=== PATIENT | female | born 1935 | race Caucasian/White ===

== ENCOUNTER 2018-04-10 12:26 | Emergency (ER) | payer OTHER ==
[2018-04-10] MEDS ORDERED: METOCLOPRAMIDE 10 MG/2mL INJ ONE (13:17)
[2018-04-10] MEDS ORDERED: NA CHLORIDE 0.9% 1,000 ML ONE ×2 (13:17→13:47)
[2018-04-10] MEDS ORDERED: DIPHENHYDRAMINE 50 MG/ML VIAL ONE (13:17)
[2018-04-10] MEDS ORDERED: KETOROLAC 30 MG/ML INJ ONE (13:17)
[2018-04-10 13:24] LABS: Absolute Lymphocytes (CBC) 0.6 K/uL (0.7-4.9); Absolute Monocytes 0.2 K/uL (0.1-1.3); Absolute Neutrophil 4.2 K/uL (1.8-8.0); Basophils % 0.5 % (0-1.3); Eosinophils % 0.2 % (0-4.4); Lymphocytes % 12.5 % (15.3-44.8); MCH 30.5 pg (27.0-35.0); MCV 89.5 fL (80-100); MPV 8.6 fL (7.6-11.3); Monocytes % 3.6 % (3.3-12.3)
[2018-04-10] MEDS ORDERED: LEVALBUTEROL 1.25 MG/3 ML NEB ONE ×2 (13:47→14:40)
[2018-04-10] MEDS ORDERED: IPRATROPIUM BROM 0.5MG/2.5ML ONE (13:47)
[2018-04-10] MEDS ORDERED: POTASSIUM CL SA 10 MEQ TAB PO ONE (14:12)
[2018-04-10] MEDS ORDERED: METHYLPREDNISOLONE 125 MG INJ ONE (14:40)
--- NOTE | 2018-04-10 14:40 | EDPHYS ---
Physician Documentation [facility] Name: aJvid Brown Age: 82 yrs Sex: Female : 1935 Arrival Date: 04/10/2018 Time: 12:29 Bed 6 Private MD: ED Physician Cali Mcmahan HPI: 04/10 12:45 This 82 yrs old Female presents to ER via Wheelchair with complaints of jr8 Headache. 12:45 The patient complains of pain to the forehead. The patient describes the headache as jr8 throbbing. Onset: The symptoms/episode began/occurred acutely, today. Associated signs and symptoms: Pertinent positives: vomiting. Severity of symptoms: At its worst the pain was moderate. The symptoms are alleviated by nothing. the symptoms are aggravated by lights, movement, noise. The patient has experienced a previous episode, approximately 20 years ago. The patient has not recently seen a physician. Historical: - Allergies: 12:33 No Known Allergies; la1 - PMHx: 12:33 Hypertension; la1 - Immunization history:: Adult Immunizations up to date. - Social history:: Smoking status: Patient/guardian denies using tobacco. ROS: 12:45 Eyes: Negative for injury, pain, redness, and discharge, ENT: Negative for injury, jr8 pain, and discharge, Neck: Negative for injury, pain, and swelling, Cardiovascular: Negative for chest pain, palpitations, and edema, Respiratory: Negative for shortness of breath, cough, wheezing, and pleuritic chest pain, Abdomen/GI: Negative for abdominal pain, diarrhea, and constipation. Positive for n/v Back: Negative for injury and pain, MS/Extremity: Negative for injury and deformity, Skin: Negative for injury, rash, and discoloration, Neuro: Negative for weakness, numbness, tingling, and seizure. Positive for headache Exam: 12:45 Head/Face: Normocephalic, atraumatic. Eyes: Pupils equal round and reactive to light, jr8 extra-ocular motions intact. Lids and lashes normal. Conjunctiva and sclera are non-icteric and not injected. Cornea within normal limits. Periorbital areas with no swelling, redness, or edema. ENT: Nares patent. No nasal discharge, no septal abnormalities noted. Tympanic membranes are normal and external auditory canals are clear. Oropharynx with no redness, swelling, or masses, exudates, or evidence of obstruction, uvula midline. Mucous membranes moist. Neck: Trachea midline, no thyromegaly or masses palpated, and no cervical lymphadenopathy. Supple, full range of motion without nuchal rigidity, or vertebral point tenderness. No Meningismus. Cardiovascular: Regular rate and rhythm with a normal S1 and S2. No gallops, murmurs, or rubs. Normal PMI, no JVD. No pulse deficits. Respiratory: Lungs have equal breath sounds bilaterally, clear to auscultation and percussion. No rales, rhonchi or wheezes noted. No increased work of breathing, no retractions or nasal flaring. Abdomen/GI: Soft, non-tender, with normal bowel sounds. No distension or tympany. No guarding or rebound. No evidence of tenderness throughout. Back: No spinal tenderness. No costovertebral tenderness. Full range of motion. Skin: Warm, dry with normal turgor. Normal color with no rashes, no lesions, and no evidence of cellulitis. MS/ Extremity: Pulses equal, no cyanosis. Neurovascular intact. Full, normal range of motion. Neuro: Awake and alert, GCS 15, oriented to person, place, time, and situation. Cranial nerves II-XII grossly intact. Motor strength 5/5 in all extremities. Sensory grossly intact. Cerebellar exam normal. Normal gait. Vital Signs: 12:33 BP 179 / 95; Pulse 79; Resp 19; Temp 98.7; Pulse Ox 100% on R/A; Weight 51.26 kg; la1 Height 5 ft. 4 in. (162.56 cm); 13:41 BP 165 / 73; Pulse 86; Resp 17; Pulse Ox 96% on R/A; hb 14:18 BP 182 / 97; Pulse 73; Resp 15; Pulse Ox 100% on R/A; hb 15:01 BP 195 / 91; Pulse 89; Resp 17; Pulse Ox 97% on R/A; tw2 12:33 Body Mass Index 19.40 (51.26 kg, 162.56 cm) la1 MDM: 12:36 Patient medically screened. jr8 12:45 Data reviewed: vital signs, nurses notes. jr8 14:39 Data reviewed: lab test result(s). Data interpreted: Pulse oximetry: on room air is 100 jr8 %. Interpretation: normal. Counseling: I had a detailed discussion with the patient and/or guardian regarding: the historical points, exam findings, and any diagnostic results supporting the discharge/admit diagnosis, lab results, the need for outpatient follow up, a family practitioner, to return to the emergency department if symptoms worsen or persist or if there are any questions or concerns that arise at home. Response to treatment: the patient's symptoms have markedly improved after treatment. 04/10 12:47 Order name: CBC with Diff jr8 04/10 12:47 Order name: Basic Metabolic Panel jr8 04/10 12:47 Order name: CBC with Automated Diff; Complete Time: 13:37 EDMS 04/10 12:47 Order name: Basic Metabolic Panel; Complete Time: 13:56 EDMS 04/10 14:22 Order name: Urine Dipstick--Ancillary (enter results) ag 04/10 12:47 Order name: IV; Complete Time: 13:13 jr8 04/10 12:47 Order name: Urine Dipstick-Ancillary (obtain specimen); Complete Time: 14:10 jr8 Administered Medications: 13:18 Drug: NS 0.9% 1000 ml Route: IV; Rate: 1000 ml; Site: left antecubital; aa5 15:03 Follow up: IV Status: Completed infusion; IV Intake: 1000ml tw2 13:18 Drug: Reglan 10 mg Route: IVP; Site: left antecubital; aa5 13:23 Follow up: Response: No adverse reaction aa5 13:20 Drug: TORadol 30 mg Route: IVP; Site: left antecubital; aa5 13:24 Follow up: Response: No adverse reaction aa5 13:21 Drug: Benadryl 25 mg Route: IVP; Site: left antecubital; aa5 13:23 Follow up: Response: No adverse reaction aa5 14:15 Drug: Potassium Chloride 40 mEq Route: PO; tw2 14:45 Follow up: Response: No adverse reaction tw2 14:45 Drug: Atenolol 50 mg Route: PO; tw2 15:01 Follow up: Response: No adverse reaction; per AVERY Agudelo, no need to wait for change in tw2 BP, pt can be discharged. Disposition: 04/11 09:15 Co-signature as Attending Physician, Cali Mcmahan MD I agree with the assessment and bobby plan of care. Disposition: 04/10/18 14:39 Discharged to Home. Impression: Migraine, Essential (primary) hypertension. - Condition is Stable. - Discharge Instructions: Migraine Headache, Hypertension. - Prescriptions for Atenolol 50 mg Oral Tablet - take 1 tablet by ORAL route once daily; 30 tablet. - Medication Reconciliation Form, Thank You Letter, Antibiotic Education, Prescription Opioid Use form. - Follow up: Private Physician; When: 2 - 3 days; Reason: Recheck today's complaints, Continuance of care, Re-evaluation by your physician. - Problem is new. - Symptoms have improved. Signatures: Dispatcher [employer] EDMS Cali Mcmahan MD MD cha Calderon, Audri, RN RN aa5 Garth Sharma PA PA jr8 Arsenio Frey RN RN la1 Emily Magallanes RN RN hb Kaitlynn Gamboa RN RN tw2 Corrections: (The following items were deleted from the chart) 04/10 14:40 14:39 04/10/2018 14:39 Discharged to Home. Impression: Migraine. Condition is Stable. jr8 Forms are Medication Reconciliation Form, Thank You Letter, Antibiotic Education, Prescription Opioid Use. Follow up: Private Physician; When: 2 - 3 days; Reason: Recheck today's complaints, Continuance of care, Re-evaluation by your physician. Problem is new. Symptoms have improved. jr8 15:05 14:40 04/10/2018 14:39 Discharged to Home. Impression: Migraine; Essential (primary) hb hypertension. Condition is Stable. Discharge Instructions: Migraine Headache. Prescriptions for Atenolol 50 mg Oral Tablet - take 1 tablet by ORAL route once daily; 30 tablet. and Forms are Medication Reconciliation Form, Thank You Letter, Antibiotic Education, Prescription Opioid Use. Follow up: Private Physician; When: 2 - 3 days; Reason: Recheck today's complaints, Continuance of care, Re-evaluation by your physician. Problem is new. Symptoms have improved. jr8
--- NOTE | 2018-04-10 14:40 | ER ---
Nurse's Notes [facility] Name: Javid Brown Age: 82 yrs Sex: Female : 1935 Arrival Date: 04/10/2018 Time: 12:29 Bed 6 Private MD: Diagnosis: Migraine;Essential (primary) hypertension Presentation: 04/10 12:32 Presenting complaint: Patient states: I have been congested for the last week and woke la1 up with a headache this morning. I also vomited once which is not abnormal for me when I have headaches like this. Transition of care: patient was not received from another setting of care. Onset of symptoms was April 10, 2018. Initial Sepsis Screen: Does the patient meet any 2 criteria? No. Patient's initial sepsis screen is negative. Does the patient have a suspected source of infection? No. Patient's initial sepsis screen is negative. Care prior to arrival: None. 12:32 Method Of Arrival: Wheelchair la1 12:32 Acuity: MAYELA 3 la1 Triage Assessment: 15:03 Headache History: Denies prior headaches. General: Appears in no apparent distress. tw2 well groomed, Behavior is calm, cooperative, appropriate for age. Pain: Pain Pain began suddenly, Also complains of nausea. Historical: - Allergies: 12:33 No Known Allergies; la1 - PMHx: 12:33 Hypertension; la1 - Immunization history:: Adult Immunizations up to date. - Social history:: Smoking status: Patient/guardian denies using tobacco. Screenin:04 Abuse screen: Denies threats or abuse. Nutritional screening: No deficits noted. tw2 Tuberculosis screening: No symptoms or risk factors identified. Fall Risk None identified. Assessment: 13:41 Reassessment: Patient appears in no apparent distress at this time. No changes from tw2 previously documented assessment. Patient and/or family updated on plan of care and expected duration. Pain level reassessed. Patient is alert, oriented x 3, equal unlabored respirations, skin warm/dry/pink. 14:19 Reassessment: Pt ambulated to bathroom with minimal assistance, urine specimen hb provided. Pt assisted back to bed bed locked in low position, call light within reach. 14:40 General: Appears in no apparent distress. slender, well groomed, Behavior is calm. tw2 Pain: Complains of pain in forehead. Neuro: Level of Consciousness is awake, alert, obeys commands, Oriented to person, place, time, situation. Cardiovascular: Denies chest pain, Heart tones S1 S2. Respiratory: Airway is patent Respiratory effort is even, unlabored, Respiratory pattern is regular, symmetrical, Breath sounds are clear bilaterally. GI: No signs and/or symptoms were reported involving the gastrointestinal system. : No signs and/or symptoms were reported regarding the genitourinary system. Musculoskeletal: No signs and/or symptoms reported regarding the musculoskeletal system. Range of motion: intact in all extremities. 15:04 Reassessment: Patient appears in no apparent distress at this time. No changes from tw2 previously documented assessment. Patient and/or family updated on plan of care and expected duration. Pain level reassessed. Patient is alert, oriented x 3, equal unlabored respirations, skin warm/dry/pink. Vital Signs: 12:33 BP 179 / 95; Pulse 79; Resp 19; Temp 98.7; Pulse Ox 100% on R/A; Weight 51.26 kg; la1 Height 5 ft. 4 in. (162.56 cm); 13:41 BP 165 / 73; Pulse 86; Resp 17; Pulse Ox 96% on R/A; hb 14:18 BP 182 / 97; Pulse 73; Resp 15; Pulse Ox 100% on R/A; hb 15:01 BP 195 / 91; Pulse 89; Resp 17; Pulse Ox 97% on R/A; tw2 12:33 Body Mass Index 19.40 (51.26 kg, 162.56 cm) la1 ED Course: 12:29 Patient arrived in ED. sb2 12:33 Triage completed. la1 12:34 Arm band placed on right wrist. la1 12:36 Garth Sharma PA is PHCP. jr8 12:36 Cali Mcmahan MD is Attending Physician. jr8 12:36 Kaitlynn Gamboa RN is Primary Nurse. tw2 12:40 Placed in gown. Bed in low position. Pulse ox on. NIBP on. tw2 13:10 Initial lab(s) drawn, by me, sent to lab. Inserted saline lock: 20 gauge in left aa5 antecubital area, using aseptic technique. Blood collected. 15:03 No provider procedures requiring assistance completed. IV discontinued, intact, hb bleeding controlled, No redness/swelling at site. Pressure dressing applied. Administered Medications: 13:18 Drug: NS 0.9% 1000 ml Route: IV; Rate: 1000 ml; Site: left antecubital; aa5 15:03 Follow up: IV Status: Completed infusion; IV Intake: 1000ml tw2 13:18 Drug: Reglan 10 mg Route: IVP; Site: left antecubital; aa5 13:23 Follow up: Response: No adverse reaction aa5 13:20 Drug: TORadol 30 mg Route: IVP; Site: left antecubital; aa5 13:24 Follow up: Response: No adverse reaction aa5 13:21 Drug: Benadryl 25 mg Route: IVP; Site: left antecubital; aa5 13:23 Follow up: Response: No adverse reaction aa5 14:15 Drug: Potassium Chloride 40 mEq Route: PO; tw2 14:45 Follow up: Response: No adverse reaction tw2 14:45 Drug: Atenolol 50 mg Route: PO; tw2 15:01 Follow up: Response: No adverse reaction; per AVERY Agudelo, no need to wait for change in tw2 BP, pt can be discharged. Intake: 15:03 IV: 1000ml; Total: 1000ml. tw2 Outcome: 14:39 Discharge ordered by MD. renee 15:03 Discharged to home ambulatory. hb 15:03 Condition: stable 15:03 Discharge instructions given to patient, Instructed on discharge instructions, follow up and referral plans. medication usage, Demonstrated understanding of instructions, follow-up care, medications, Prescriptions given X 1. 15:05 Patient left the ED. hb Signatures: Alma Torrez RN RN aa5 Garth Sharma PA PA jr8 Arsenio Frey RN RN la1 Emily Magallanes RN RN hb Wise, Tara RN RN tw2 Imelda Pillai sb2 Corrections: (The following items were deleted from the chart) 14:19 13:41 BP 165 / 73; Pulse 17bpm; Resp 86bpm; Pulse Ox 96% RA; tw2 hb
[2018-04-10] MEDS ORDERED: ATENOLOL 50 MG TAB ONE (14:42)
[2018-04-10 15:09] VITALS: TEMP 98.7
[2018-04-10 15:13] VITALS: BP 195/91; O2SAT 97
[2018-04-10 17:09] LABS: Urine Blood TRACE (NEG); Urine Glucose NEGATIVE (NEG); Urine Protein TRACE (NEG); Urine Specific Gravity 1.015 (1.005-1.030); Urine pH 7.5 (5.0-7.0)
== END 2018-04-10 15:05 | disposition home or self-care (01) ==
LOC: ER 12:26
DX: G43.909 Migraine, unspecified, not intractable, without status migrainosus (principal); I10 Essential (primary) hypertension
CPT/HCPCS: 36415; 80048; 81003; 85025; 96361; 96374; 96375; 99284; J2765; J2930; J7030 ×2

== ENCOUNTER 2019-04-17 13:06 | Emergency (ER) | payer OTHER, SELFPAY ==
--- OUTSIDE RECORDS SUMMARY | 2019-04-17 13:08 | XMS REPORT ---
:1935 Author Organization [employer] Care Team Providers Name Role Phone Jeniffer Valdes Provider Role Unavailable Allergies, Adverse Reactions, Alerts Substance Reaction Event Type N.K.D.A. Info Not Available Non Drug Allergy Problems Problem Type Condition Code Onset Dates Condition Status Assessment Hypokalemia E87.6 Active Problem Allergic rhinitis, unspecified J30.9 Active seasonality, unspecified trigger Assessment Hypertension, unspecified type I10 Active Problem Hyperglycemia R73.9 Active Problem Hypokalemia E87.6 Active Problem Anxiety F41.9 Active Problem Hypertension, unspecified type I10 Active Problem Maxillary fracture, unspecified S02.401S Active side, sequela Problem Seasonal allergies J30.2 Active Problem Hyperlipidemia, unspecified E78.5 Active hyperlipidemia type Assessment Follow-up exam Z09 Active Assessment Allergic rhinitis, unspecified J30.9 Active seasonality, unspecified trigger Assessment Hyperlipidemia, unspecified E78.5 Active hyperlipidemia type Assessment Hyperglycemia R73.9 Active Medications Medication Code Code Instructions Start End Status Dosage System Date Date Atenolol [facility] 72676894330 50 MG Orally Active 1 tablet Once a day Maxzide-25 [facility] 43572793771 37.5-25 MG Active 1 tablet in Orally Once a the morning day ZyrTEC NDC 0 Orally Once Active 10 mg 1 daily tablet as needed for allergies Flonase [facility] 62821609469 50 MCG/ACT Active 2 sprays in Nasally Once a each nostril day as needed for allergies/si nuses Co-Enzyme Q-10 ND 55999455024 15 MG Orally Active not defined Aspir-81 [facility] 01542538370 81 MG Orally Active 1 tablet Once a day Pravastatin ND 37712181471 40 MG Orally Active 1 tablet in Sodium Once a day evening [facility] NDC 0 Active not defined Crestor ND 24029642541 20 MG Orally Active 1 tablet Once a day Centrum Silver [facility] 12410904342 - Orally Active not defined Results No Known Results Summary Purpose [employer]Works Submission
--- OUTSIDE RECORDS SUMMARY | 2019-04-17 13:08 | XMS REPORT ---
:1935 Author Organization [employer] Care Team Providers Name Role Phone Jeniffer Valdes Provider Role Unavailable Allergies, Adverse Reactions, Alerts Substance Reaction Event Type N.K.D.A. Info Not Available Non Drug Allergy Problems Problem Type Condition Code Onset Dates Condition Status Problem Maxillary fracture, unspecified S02.401S Active side, sequela Problem Allergic rhinitis, unspecified J30.9 Active seasonality, unspecified trigger Assessment Hyperlipidemia, unspecified E78.5 Active hyperlipidemia type Assessment White coat syndrome with diagnosis I10 Active of hypertension Assessment Hypertension, unspecified type I10 Active Problem Anxiety F41.9 Active Problem Hyperglycemia R73.9 Active Problem White coat syndrome with diagnosis I10 Active of hypertension Problem Hyperlipidemia, unspecified E78.5 Active hyperlipidemia type Problem Hypertension, unspecified type I10 Active Problem Hypokalemia E87.6 Active Problem Seasonal allergies J30.2 Active Medications Medication Code Code Instructions Start End Status Dosage System Date Date Centrum Silver [facility] 26615528040 - Orally Active not defined ZyrTEC [facility] 04584421776 Orally Once Active 10 mg 1 daily tablet as needed for allergies Maxzide-25 [facility] 44568970352 37.5-25 MG Active 1 tablet in Orally Once a the morning day Atenolol ND 17782334289 50 MG Orally Active 1 tablet Once a day Flonase [facility] 36053953869 50 MCG/ACT Active 2 sprays in Nasally Once a each nostril day as needed for allergies/si nuses Aspir-81 [facility] 54973089288 81 MG Orally Active 1 tablet Once a day Crestor [facility] 06000988826 20 MG Orally Active 1 tablet Once a day Co-Enzyme Q-10 ND 90689613564 15 MG Orally Active not defined [place] 0 Active not defined Pravastatin [facility] 03151774816 40 MG Orally Active 1 tablet in Sodium Once a day evening Results No Known Results Summary Purpose [employer] Submission
--- OUTSIDE RECORDS SUMMARY | 2019-04-17 13:09 | XMS REPORT ---
:1935 Author Organization [employer] Care Team Providers Name Role Phone Jeniffer Valdes Provider Role Unavailable Allergies, Adverse Reactions, Alerts Substance Reaction Event Type N.K.D.A. Info Not Available Non Drug Allergy Problems Problem Type Condition Code Onset Dates Condition Status Problem Hypokalemia E87.6 Active Problem Anxiety F41.9 Active Problem Hyperglycemia R73.9 Active Problem Hypercholesterolemia E78.00 Active Problem White coat syndrome with diagnosis I10 Active of hypertension Problem Essential hypertension I10 Active Problem Maxillary fracture, unspecified S02.401S Active side, sequela Problem Allergic rhinitis, unspecified J30.9 Active seasonality, unspecified trigger Problem Hyperlipidemia, unspecified E78.5 Active hyperlipidemia type Problem Hypertension, unspecified type I10 Active Assessment Anxiety F41.9 Active Assessment White coat syndrome with diagnosis I10 Active of hypertension Assessment Essential hypertension I10 Active Assessment Abnormal liver function test R94.5 Active Assessment Hypercholesterolemia E78.00 Active Problem Seasonal allergies J30.2 Active Medications Medication Code Code Instructions Start End Status Dosage System Date Date Co-Enzyme Q-10 [facility] 38712437471 100 MG Orally Active 200 mg (1 Once a day capsule--OT C) Maxzide-25 [facility] 79152522359 37.5-25 MG Active 1 tablet in Orally Once a the morning day Crestor [facility] 90234069583 20 MG Orally Active 1 tablet Once a day [place] NDC 0 Active not defined Atenolol [facility] 27338056125 50 MG Orally Active 1 tablet Once a day Centrum Silver [facility] 75621102587 - Orally Active not defined Aspir-81 [facility] 22945971830 81 MG Orally Active 1 tablet Once a day Pravastatin [facility] 08668961215 40 MG Orally Inactive 1 tablet in Sodium Once a day evening Crestor [facility] 25132616427 20 mg Orally March Active 1 tablet Once a day in 2018 evening for high cholesterol [place] 3 [facility] [place] [address] Orally Once a Active 600 mg 1 day capsule (OTC) BusPIRone HCl [facility] 20105584499 7.5 MG Orally January Active 1 tablet Twice a day as 2018 needed for anxiety ZyrTEC [facility] 23452740994 Orally Once Active 10 mg 1 daily tablet as needed for allergies Flonase [facility] 69166036375 50 MCG/ACT Active 2 sprays in Nasally Once a each day nostril as needed for allergies/s inuses Results No Known Results Summary Purpose eClinicalWorks Submission
--- OUTSIDE RECORDS SUMMARY | 2019-04-17 13:09 | XMS REPORT ---
[...] unspecified J30.9 Active seasonality, unspecified trigger Assessment Depression screening Z13.31 Active Assessment Well adult exam Z00.00 Active Problem Anxiety F41.9 Active Problem Hyperglycemia R73.9 Active Problem White coat syndrome with diagnosis I10 Active of hypertension Problem Hyperlipidemia, unspecified E78.5 Active hyperlipidemia type Problem Hypertension, unspecified type I10 Active Problem Hypokalemia E87.6 Active Problem Seasonal allergies J30.2 Active Medications Medication Code Code Instructions Start End Status Dosage System Date Date Maxzide-25 [facility] 22876994507 37.5-25 MG Active 1 tablet in Orally Once a the morning day Atenolol [facility] 54495168316 50 MG Orally Active 1 tablet Once a day Pravastatin [facility] 25345070939 40 MG Orally Active 1 tablet in Sodium Once a day evening Co-Enzyme Q-10 [facility] 51074364843 100 MG Orally Active 200 mg (1 Once a day capsule--OTC ) ZyrTEC [facility] 54155427238 Orally Once Active 10 mg 1 daily tablet as needed for allergies Flonase [facility] 25990659791 50 MCG/ACT Active 2 sprays in Nasally Once a each nostril day as needed for allergies/si nuses Centrum Silver [facility] 05567451846 - Orally Active not defined Aspir-81 [facility] 88535895079 81 MG Orally Active 1 tablet Once a day Crestor [facility] 67460504023 20 MG Orally Active 1 tablet Once a day [place] 3 [facility] [place] [address] Orally Once a Active 600 mg 1 day capsule (OTC) [place] 0 Active not defined Results No Known Results Summary Purpose eClinicalWorks Submission
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
--- NOTE | 2019-04-17 15:17 | RAD REPORT ---
EXAM DESCRIPTION: CT - Facial Bones W/ Mpr - 04/17/2019 2:56 pm CLINICAL HISTORY: Trip and fall, facial trauma COMPARISON: September 2015 TECHNIQUE: Axial 2 millimeter thick images of the facial bones were obtained with sagittal and coron al reconstruction imaging. All CT scans are performed using dose optimization technique as appropriate and may include automated exposure control or mA/KV adjustment according to patient size. FINDINGS: No mandible fracture. Condyles are normally positioned. Mastoid air cells are clear. There is no skullbase fracture. No globe or orbital content injury seen. Mucosal thickening changes are pr esent in the frontal and ethmoid sinuses. Left maxillary sinus is clear. Right deviation of the mid and posterior nasal septum is present. Multiple fractures involve the wall s of the right maxillary sinus. No depressed orbital floor fracture. No significant displacement of t he fracture fragments. Mucosal thickening and air-fluid level in the right maxillary sinus is present . Zygomatic arch is intact. The superior medial and lateral dobbins of the orbit on the right are intac t. No nasal bone fracture confirmed. IMPRESSION: Multiple fractures involve the dobbins of the right maxillary sinus. The blood is present in the right sinus along with mucosal thickening. No significant displacement of the right maxillary sinus wall fractures. No depressed orbital floor f racture. No other facial fracture confirmed. There is significant right deviation of the nasal septum without identifiable fracture.
[2019-04-17] MEDS ORDERED: TETANUS & DIPHTHERIA TOX,ADULT 0.5 ML VIAL ONE (16:05)
[2019-04-17] MEDS ORDERED: LIDOCAINE 1% MPF 5 ML VIAL ONE (16:05)
[2019-04-17] MEDS ORDERED: CEFTRIAXONE 1000 MG/VIAL ONE (16:06)
--- NOTE | 2019-04-17 17:27 | ER ---
Nurse's Notes [facility] Name: Javid Brown Age: 83 yrs Sex: Female : 1935 Arrival Date: 04/17/2019 Time: 13:09 Bed 25 Private MD: Jeniffer Valdes Diagnosis: Maxillary sinus fractures;Fall on same level from slipping, tripping and stumbling;Laceration without foreign body of unspecified part of head-Right outer eyebrow Presentation: 04/17 13:12 Presenting complaint: Patient states: tripped and fell on some shoes she had on and sv fell on her face, bruising noted to the right eye, right eyebrow laceration. Denies LOC. Care prior to arrival: None. Mechanism of Injury: Fall from standing position. Trauma event details: Injury occurred in the [facility], Injury occurred: at home. Injury occurred: April 17, 2019 Injury occurred at: 12:00. 13:12 Acuity: MAYELA 3 sv 13:12 Method Of Arrival: Ambulatory sv 13:13 Transition of care: patient was not received from another setting of care. Onset of sv symptoms was April 17, 2019. Initial Sepsis Screen: Does the patient meet any 2 criteria? No. Patient's initial sepsis screen is negative. Does the patient have a suspected source of infection? No. Patient's initial sepsis screen is negative. 15:35 Risk Assessment: Do you want to hurt yourself or someone else? Patient reports no aj1 desire to harm self or others. Triage Assessment: 13:12 General: Appears in no apparent distress. uncomfortable, Behavior is calm, cooperative, sv appropriate for age. Pain: Denies pain. Neuro: Level of Consciousness is awake, alert, obeys commands, Oriented to person, place, time, situation, Gait is steady, Speech is normal. Respiratory: Airway is patent Respiratory effort is even, unlabored, Respiratory pattern is regular, symmetrical. Derm: Skin is normal, Bruising that is dark purple, on right eye. Injury Description: Laceration sustained to outer aspect of right eyebrow is clean, no active bleeding noted at this time. Trauma Activation: Not Applicable Physician: ED Physician; Name: ; Notified At: ; Arrived At: Physician: General Surgeon; Name: ; Notified At: ; Arrived At: Physician: Radiology; Name: ; Notified At: ; Arrived At: Physician: Respiratory; Name: ; Notified At: ; Arrived At: Physician: Lab; Name: ; Notified At: ; Arrived At: Historical: - Allergies: 13:14 No Known Allergies; sv - PMHx: 13:14 Hypertension; sv - Immunization history:: Adult Immunizations up to date. - Social history:: Smoking status: Patient/guardian denies using tobacco. - Ebola Screening: : No symptoms or risks identified at this time. Screenin:30 Abuse screen: Denies threats or abuse. Denies injuries from another. Nutritional aj1 screening: No deficits noted. Tuberculosis screening: No symptoms or risk factors identified. 18:01 Fall Risk None identified. aj1 Assessment: 15:30 General: Appears in no apparent distress. uncomfortable, Behavior is calm, cooperative, aj1 appropriate for age. Neuro: Level of Consciousness is awake, alert, obeys commands, Oriented to person, place, time, situation. Cardiovascular: Patient's skin is warm and dry. Respiratory: Airway is patent Respiratory effort is even, unlabored, Respiratory pattern is regular, symmetrical. GI: No signs and/or symptoms were reported involving the gastrointestinal system. : No signs and/or symptoms were reported regarding the genitourinary system. Derm: Skin is pink, warm \T\ dry. Bruising that is on right eye. Musculoskeletal: Range of motion: intact in all extremities. Injury Description: Laceration sustained to outer aspect of right eyebrow. 16:48 Reassessment: Patient appears in no apparent distress at this time. No changes from aj1 previously documented assessment. Patient and/or family updated on plan of care and expected duration. Pain level reassessed. Patient is alert, oriented x 3, equal unlabored respirations, skin warm/dry/pink. Vital Signs: 13:14 BP 176 / 86; Pulse 77; Resp 16; Temp 98.7; Pulse Ox 97% ; Weight 53.98 kg; Height 5 ft. sv 4 in. (162.56 cm); Pain 0/10; 16:49 BP 134 / 65; Pulse 66; Resp 18; Pulse Ox 97% on R/A; aj1 13:14 Body Mass Index 20.43 (53.98 kg, 162.56 cm) sv ED Course: 13:09 Patient arrived in ED. ag5 13:09 Jeniffer Valdes MD is Private Physician. ag5 13:13 Triage completed. sv 13:14 Arm band placed on. sv 14:38 Addison Ramos NP is PHCP. pm1 14:38 Pam Guzman MD is Attending Physician. pm1 14:[address] vm2 14:57 CT Head C Spine In Process Unspecified. EDMS 14:57 CT Facial Bones W/O Con In Process Unspecified. EDMS 15:20 Nikki Burger, BACILIO is Primary Nurse. aj1 15:30 Patient has correct armband on for positive identification. Bed in low position. Call aj1 light in reach. Side rails up X 1. 15:30 No provider procedures requiring assistance completed. aj1 17:23 Lulú Augustine MD is Referral Physician. pm1 17:31 Referral Physician role handed off by Lulú Augustine MD pm1 17:31 Artie Tobar DDS is Referral Physician. pm1 18:01 Patient did not have IV access during this emergency room visit. 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 Exp: aj1 01/19/2021. Lot #: [id number]. } Route: IM; Site: left deltoid; 18:00 Follow up: Response: No adverse reaction aj1 15:37 Drug: Lidocaine (1 %) 5 mg {Note: administered by Syd Ramos NP.} Route: Infiltration; aj1 18:00 Follow up: Response: No adverse reaction aj1 16:01 Drug: Rocephin (cefTRIAXone) 1 grams Route: IM; Site: right gluteus; aj1 18:01 Follow up: Response: No adverse reaction aj1 17:53 Drug: Tylenol #3 (300 mg-30 mg) 1 tablet Route: PO; aj1 18:01 Follow up: Response: No adverse reaction aj Outcome: 17:26 Discharge ordered by . pm1 18:02 Discharged to home ambulatory. aj1 18:02 Condition: good 18:02 Discharge instructions given to patient, Instructed on discharge instructions, follow up and referral plans. no drinking with medication, no driving heavy equipment, medication usage, Demonstrated understanding of instructions, follow-up care, medications, Prescriptions given X 2. 18:03 Patient left the ED. aj1 Signatures: Dispatcher [employer] Nikki Pop RN RN aj1 Lulú Burgos RN RN sv Marinas, Patrick, EFFIE BELT BRANDER pm1 Hannah Truong 2 Teja Diggs [facility]
--- NOTE | 2019-04-17 17:27 | EDPHYS ---
Physician Documentation [facility] Name: Javid Brown Age: 83 yrs Sex: Female : 1935 Arrival Date: 04/17/2019 Time: 13:09 Bed 25 Private MD: Jeniffer Valdes ED Physician Pam Guzman HPI: 04/17 17:22 This 83 yrs old Female presents to ER via Ambulatory with complaints of Fall pm1 Injury, Facial Injury. 17:22 Details of fall: The patient fell from an upright position, while walking. Onset: The pm1 symptoms/episode began/occurred just prior to arrival. Associated injuries: The patient sustained injury to the head, contusion. The patient has not experienced similar symptoms in the past. The patient has not recently seen a physician. Patient was walking into the house with groceries in both arms. Tripped on the carpet and hit the right side of her face on the carpet. Presenting with laceration to right outer eyebrow. No LOC, headache, neck pain, vomiting, AMS. Historical: - Allergies: 13:14 No Known Allergies; sv - PMHx: 13:14 Hypertension; sv - Immunization history:: Adult Immunizations up to date. - Social history:: Smoking status: Patient/guardian denies using tobacco. - Ebola Screening: : No symptoms or risks identified at this time. ROS: 17:22 Constitutional: Negative for fever, chills, and weight loss, Eyes: Negative for injury, pm1 pain, redness, and discharge, ENT: Negative for injury, pain, and discharge, Neck: Negative for injury, pain, and swelling, Cardiovascular: Negative for chest pain, palpitations, and edema, Respiratory: Negative for shortness of breath, cough, wheezing, and pleuritic chest pain, Abdomen/GI: Negative for abdominal pain, nausea, vomiting, diarrhea, and constipation, Back: Negative for injury and pain, : Negative for injury, bleeding, discharge, and swelling, MS/Extremity: Negative for injury and deformity. 17:22 Neuro: Negative for headache, weakness, numbness, tingling, and seizure. 17:22 Skin: Positive for laceration(s), of the outer aspect of right eyebrow. Exam: 17:22 Constitutional: This is a well developed, well nourished patient who is awake, alert, pm1 and in no acute distress. 17:22 Eyes: Pupils equal round and reactive to light, extra-ocular motions intact. Lids and lashes normal. Conjunctiva and sclera are non-icteric and not injected. Cornea within normal limits. Periorbital areas with no swelling, redness, or edema. Neck: Trachea midline, no thyromegaly or masses palpated, and no cervical lymphadenopathy. Supple, full range of motion without nuchal rigidity, or vertebral point tenderness. No Meningismus. 17:22 Chest/axilla: Normal chest wall appearance and motion. Nontender with no deformity. No lesions are appreciated. Cardiovascular: Regular rate and rhythm with a normal S1 and S2. No gallops, murmurs, or rubs. Normal PMI, no JVD. No pulse deficits. Respiratory: Lungs have equal breath sounds bilaterally, clear to auscultation and percussion. No rales, rhonchi or wheezes noted. No increased work of breathing, no retractions or nasal flaring. Abdomen/GI: Soft, non-tender, with normal bowel sounds. No distension or tympany. No guarding or rebound. No evidence of tenderness throughout. Back: No spinal tenderness. No costovertebral tenderness. Full range of motion. Skin: Warm, dry with normal turgor. Normal color with no rashes, no lesions, and no evidence of cellulitis. MS/ Extremity: Pulses equal, no cyanosis. Neurovascular intact. Full, normal range of motion. 17:22 Head/face: Noted is no obvious of injury or deformity except contusion, that is superficial, of the right cheek, a laceration(s), that is jagged, 2.5 cm(s), of the outer aspect of right eyebrow. 17:22 ENT: External ear(s): are unremarkable, Ear canal(s): are normal, TM's: are normal, Nose: External nose: no obvious acute abnormality, Nasal septum: is midline, no septal hematoma appreciated, clotted blood, is not appreciated, nasal drainage, is not appreciated, Mouth: is normal. 17:22 Neuro: Orientation: is normal, Motor: is normal, moves all fours, Sensation: is normal, no obvious gross deficits. Vital Signs: 13:14 BP 176 / 86; Pulse 77; Resp 16; Temp 98.7; Pulse Ox 97% ; Weight 53.98 kg; Height 5 ft. sv 4 in. (162.56 cm); Pain 0/10; 16:49 BP 134 / 65; Pulse 66; Resp 18; Pulse Ox 97% on R/A; aj 13:14 Body Mass Index 20.43 (53.98 kg, 162.56 cm) sv Laceration: 17:22 Wound Repair of 2.5cm ( 1.0in ) subcutaneous laceration to outer aspect of right pm1 eyebrow. Irregularly shaped.. Distal neuro/vascular/tendon intact. Anesthesia: Local anesthetic administered with 3 mls of 1% lidocaine. Wound prep: Extensive cleansing with hibiclenz by me, Wound irrigation with saline by me, Wound explored extensively, Copious irrigation. Skin closed with 6 5-0 Prolene using simple sutures and sterile technique. Dressed with Neosporin, 4x4's. Patient tolerated well. MDM: 14:38 Patient medically screened. pm1 17:22 Data reviewed: vital signs. Data interpreted: Pulse oximetry: on room air is 97 %. pm1 Interpretation: normal. Counseling: I had a detailed discussion with the patient and/or guardian regarding: the historical points, exam findings, and any diagnostic results supporting the discharge/admit diagnosis, radiology results, the need for outpatient follow up, to return to the emergency department if symptoms worsen or persist or if there are any questions or concerns that arise at home. 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 Exp: aj1 01/19/2021. Lot #: [id number]. } Route: IM; Site: left deltoid; 18:00 Follow up: Response: No adverse reaction aj1 15:37 Drug: Lidocaine (1 %) 5 mg {Note: administered by Syd Ramos NP.} Route: Infiltration; aj1 18:00 Follow up: Response: No adverse reaction aj1 16:01 Drug: Rocephin (cefTRIAXone) 1 grams Route: IM; Site: right gluteus; aj1 18:01 Follow up: Response: No adverse reaction aj1 17:53 Drug: Tylenol #3 (300 mg-30 mg) 1 tablet Route: PO; aj1 18:01 Follow up: Response: No adverse reaction aj1 Disposition: 19:52 Co-signature as Attending Physician, Pam Guzman MD. ma2 Disposition: 04/17/19 17:26 Discharged to Home. Impression: Maxillary sinus fractures, Fall on same level from slipping, tripping and stumbling, Laceration without foreign body of unspecified part of head - Right outer eyebrow. - Condition is Stable. - Discharge Instructions: Head Injury, Adult, Fall Prevention in the Home, Facial Laceration. - Prescriptions for Augmentin 875- 125 mg Oral Tablet - take 1 tablet by ORAL route every 12 hours for 10 days; 20 tablet. Tylenol- Codeine #3 300-30 mg Oral Tablet - take 2 tablet by ORAL route every 6 hours As needed; 20 tablet. - Medication Reconciliation Form, Thank You Letter, Antibiotic Education, Prescription Opioid Use form. - Follow up: Emergency Department; When: As needed; Reason: Worsening of condition. Follow up: Lulú Augustine MD; When: 2 - 3 days; Reason: Recheck today's complaints, Continuance of care, Re-evaluation by your physician. Follow up: Artie Tobar DDS; When: 2 - 3 days; Reason: Recheck today's complaints, Continuance of care, Re-evaluation by your physician. - Problem is new. - Symptoms have improved. - Notes: Your sutures need to be removed in 4-5 days Signatures: Dispatcher [employer] EDMS Nikki Burger RN RN aj1 Lulú Burgos RN RN sv Marinas, Patrick, NP INSURANCE CHECKER pm1 Pam Guzman MD MD ma2 Corrections: (The following items were deleted from the chart) 17:32 17:26 04/17/2019 17:26 Discharged to Home. Impression: Maxillary sinus fractures; Fall pm1 on same level from slipping, tripping and stumbling; Laceration without foreign body of unspecified part of head - Right outer eyebrow. Condition is Stable. Forms are Medication Reconciliation Form, Thank You Letter, Antibiotic Education, Prescription Opioid Use. Follow up: Emergency Department; When: As needed; Reason: Worsening of condition. Follow up: Lulú Augustine; When: 2 - 3 days; Reason: Recheck today's complaints, Continuance of care, Re-evaluation by your physician. Problem is new. Symptoms have improved. pm1 18:03 17:32 04/17/2019 17:26 Discharged to Home. Impression: Maxillary sinus fractures; Fall aj1 on same level from slipping, tripping and stumbling; Laceration without foreign body of unspecified part of head - Right outer eyebrow. Condition is Stable. Discharge Instructions: Facial Laceration, Head Injury, Adult, Fall Prevention in the Home. Prescriptions for Augmentin 875-125 mg Oral Tablet - take 1 tablet by ORAL route every 12 hours for 10 days; 20 tablet. and Forms are Medication Reconciliation Form, Thank You Letter, Antibiotic Education, Prescription Opioid Use. Follow up: Emergency Department; When: As needed; Reason: Worsening of condition. Follow up: Artie Tobar; When: 2 - 3 days; Reason: Recheck today's complaints, Continuance of care, Re-evaluation by your physician. Problem is new. Symptoms have improved. pm1
[2019-04-17] MEDS ORDERED: CODEINE 30MG/APAP 300MG TAB ONE (17:55)
[2019-04-17 19:20] VITALS: TEMP 98.7; O2SAT 97
[2019-04-17 19:21] VITALS: BP 134/65
== END 2019-04-17 18:03 | disposition home or self-care (01) ==
LOC: ER 13:06
PROC: 0JQ10ZZ Repair Face Subcutaneous Tissue and Fascia, Open Approach (ICD-10-PCS; principal; 2019-04-17)
DX: S01.111A Laceration without foreign body of right eyelid and periocular area, initial encounter (principal); S02.401A Maxillary fracture, unspecified side, initial encounter for closed fracture; W01.0XXA Fall on same level from slipping, tripping and stumbling without subsequent striking against object, initial encounter; Y93.01 Activity, walking, marching and hiking; Y92.9 Unspecified place or not applicable; Z23 Encounter for immunization
CPT/HCPCS: 70450; 70486; 72125; 76377; 90471; 90714; 96372; 99284

== ENCOUNTER 2024-08-01 14:30 | Emergency (ER) | payer OTHER ==
[2024-08-01] MEDS ORDERED: NA CHLORIDE 0.9% 500 ML ONE (14:57)
[2024-08-01] MEDS ORDERED: TDAP (DIPHTH,PERTUSS(ACELL),TET VAC) 0.5 ML VIAL IMVAC ONE (14:57)
[2024-08-01] MEDS ORDERED: LIDOCAINE 2% W/EPI 1:200,000 MPF 20 ML VIAL IM ONE (14:57)
--- NOTE | 2024-08-01 15:41 | RAD REPORT ---
EXAM DESCRIPTION: CT - CTHCSPWOC - 08/01/2024 3:18 pm CLINICAL HISTORY: Trauma, head and neck injury. fall COMPARISON: Head C Spine Mpr Wo Con dated 04/17/2019 TECHNIQUE: Axial 5 mm thick images of the head were obtained. Axial 2 mm thick images of the cervical spine were obtained with sagittal and coronal reconstruction images generated and reviewed. All CT scans are performed using dose optimization technique as appropriate and may include automated exposure control or mA/KV adjustment according to patient size. FINDINGS: CT HEAD WITHOUT CONTRAST: No acute hemorrhage, hydrocephalus or extra-axial collection is identified.No areas of brain edema or midline shift. The paranasal sinuses and mastoids are clear.The calvarium is intact. CT CERVICAL SPINE WITHOUT CONTRAST: No fracture or subluxation.Mild cervical degenerative changes.No prevertebral soft tissues swelling i s identified. IMPRESSION: No acute intracranial or cervical spine findings.
--- NOTE | 2024-08-01 15:54 | RAD REPORT ---
EXAM DESCRIPTION: CT - Chest Abd Pelvis Wo Con - 08/01/2024 3:18 pm CLINICAL HISTORY: Chest and abdomen pain. PAIN COMPARISON: No comparisons TECHNIQUE: Limited noncontrast study was performed. All CT scans are performed using dose optimization technique as appropriate and may include automated exposure control or mA/KV adjustment according to patient size. FINDINGS: The lungs are clear.Trace left pleural effusion.No intrathoracic adenopathy. The liver, spleen, pancreas, adrenal glands and kidneys are within normal limits. Biliary stents are present. Gallbladder appears distended and contains several stones. Mild ascites is present. Moderate stool is present throughout the colon. No free air or abscess. No p athologic lymphadenopathy in the abdomen or pelvis. Aortoiliac atherosclerosis. Mild lumbar degenerative changes. IMPRESSION: Distended gallbladder containing several stones. Mild ascites and small left pleural effusion. Moderate stool throughout the colon.
[2024-08-01 16:04] LABS: Absolute Basophils 0.1 K/uL (0-0.5); Absolute Eosinophils 0.1 K/uL (0-0.5); Absolute Lymphocytes (CBC) 0.5 K/uL (0.7-4.9); Absolute Monocytes 0.7 K/uL (0.1-1.3); Absolute Neutrophil 5.1 K/uL (1.8-8.0); Eosinophils % 0.9 % (0-4.4); Hematocrit 35.5 % (36.0-45.0); Lymphocytes % 8.4 % (15.3-44.8); MCH 29.9 pg (27.0-35.0); MCHC 33.9 g/dL (32.0-36.0); MCV 88.3 fL (80-100); MPV 9.3 fL (7.6-11.3); Monocytes % 11.4 % (3.3-12.3); Neutrophils % 78.3 % (41.7-73.7); Nucleated Red Blood Cells % 0.1 % (0-0); Platelets 269 thou/uL (152-406); RBC Red Blood Cell Count 4.02 M/uL (3.86-4.86); Red Cell Distribution Width 15.1 % (12.1-15.2)
--- NOTE | 2024-08-01 16:12 | RAD REPORT ---
EXAM DESCRIPTION: RAD - Chest Single View - 08/01/2024 3:58 pm CLINICAL HISTORY: PAIN Chest pain. COMPARISON: CHEST SINGLE VIEW dated 03/26/2012; Chest Abd Pelvis Wo Con dated 08/01/2024 FINDINGS: Portable technique limits examination quality. The lungs are grossly clear. The heart is normal in size. No displaced fractures.Calcified loose body in the region of the right shoulder noted. IMPRESSION: No acute intrathoracic process suspected.
[2024-08-01 16:28] LABS: Albumin 2.6 g/dL (3.4-5.0); Albumin/Globulin Ratio 0.7 (1.1-1.8); Bilirubin Indirect, Calculated 0.1 mg/dL (0.2-0.8); Bilirubin Total 1.1 mg/dL (0.2-1.0); Magnesium 1.8 mg/dL (1.6-2.4); PT Prothrombin Time 11.6 SECONDS (9.4-12.5); Protein, Total 6.6 g/dL (6.4-8.2); Protime INR 1.04; Troponin High Sensitivity 21.6 pg/mL (<58.9)
[2024-08-01] MEDS ORDERED: POTASSIUM 25 MEQ EFFERV TAB ONE (17:29)
--- NOTE | 2024-08-01 17:34 | ER ---
Nurse's Notes [facility] Name: Alberta Brown Age: 88 yrs Sex: Female : 1935 Arrival Date: 08/01/2024 Time: 14:30 Bed 3 Private MD: Diagnosis: Fall (on) (from) unspecified stairs and steps;Unspecified injury of head, initial encounter;Laceration without foreign body of other part of head-LEFT MORAVIAN;Other ascites;Other cholelithiasis with obstruction-CBD CANCER;Pleural effusion, not elsewhere classified;Hypokalemia Presentation: 08/01 14:38 Chief complaint: EMS states: Toned out to patient home for falling into door frame - ld1 laceration to left latter-day. Denies LOC. Pt denies blood thinners. Coronavirus screen: At this time, the client does not indicate any symptoms associated with coronavirus-19. Ebola Screen: No symptoms or risks identified at this time. Initial Sepsis Screen: Does the patient meet any 2 criteria? No. Patient's initial sepsis screen is negative. Does the patient have a suspected source of infection? No. Patient's initial sepsis screen is negative. Risk Assessment: Do you want to hurt yourself or someone else? Patient reports no desire to harm self or others. Onset of symptoms. 14:38 Acuity: MAYELA 3 ld1 14:38 Method Of Arrival: EMS: [facility] ld1 Triage Assessment: 14:39 General: Appears in no apparent distress. comfortable, Behavior is calm, cooperative, ld1 appropriate for age. Pain: Denies pain. EENT: No signs and/or symptoms were reported regarding the EENT system. Neuro: Level of Consciousness is awake, alert, obeys commands, Oriented to person, place, time, situation. Cardiovascular: Capillary refill < 3 seconds Patient's skin is warm and dry. Respiratory: Airway is patent Respiratory effort is even, unlabored. GI: Abdomen is round distended. : No signs and/or symptoms were reported regarding the genitourinary system. Derm: No signs and/or symptoms reported regarding the dermatologic system. Musculoskeletal: No signs and/or symptoms reported regarding the musculoskeletal system. Historical: - Allergies: 14:39 No Known Allergies; ld1 - PMHx: 14:39 Hypertension; Bile duct cancer (Hypertension); ld1 - Immunization history:: Adult Immunizations up to date. - Infectious Disease History:: Denies. - Social history:: Smoking status: Patient denies any tobacco usage or history of. Screenin:40 [facility] ED Fall Risk Assessment (Adult) History of falling in the last 3 months, ld1 including since admission Yes- single mechanical fall (1 pt) Confusion or Disorientation No (0 pts) Intoxicated or Sedated No (0 pts) Impaired Gait No (0 pts) Mobility Assist Device Used No (0 pt) Altered Elimination No (0 pt) Score/Fall Risk Level 0 - 2 = Low Risk Oriented to surroundings, Maintained a safe environment, Educated pt \T\ family on fall prevention, incl call for assistance when getting out of bed, Assessed \T\ reinforced patient's understanding of fall precautions, Provided non-skid footwear, Hourly rounding (assess needs \T\ fall precautionary measures) done, Used ambulatory aids as needed (educated on \T\ assisted with), Used gait belt as appropriate. Abuse screen: Denies threats or abuse. Abuse screen: Denies threats or abuse. Denies injuries from another. Nutritional screening: No deficits noted. Tuberculosis screening: No symptoms or risk factors identified. Assessment: 14:40 Reassessment: See triage assessment. ld1 15:30 Reassessment: Patient appears in no apparent distress at this time. No changes from ld1 previously documented assessment. Patient and/or family updated on plan of care and expected duration. Pain level reassessed. 17:34 Reassessment: Patient appears in no apparent distress at this time. No changes from ld1 previously documented assessment. Patient and/or family updated on plan of care and expected duration. Pain level reassessed. 17:54 Reassessment: Patient appears in no apparent distress at this time. No changes from ld1 previously documented assessment. Patient and/or family updated on plan of care and expected duration. Pain level reassessed. Vital Signs: 14:42 Weight 60.78 kg; Height 5 ft. 3 in. ; Pain 0/10; ld1 15:30 BP 126 / 74; Pulse 89; Resp 18; Pulse Ox 97% on R/A; ld1 17:34 BP 130 / 76; Pulse 89; Resp 18; Pulse Ox 97% on R/A; ld1 14:42 Body Mass Index 23.74 (60.78 kg, 160.02 cm) ld1 14:42 Pain Scale: Adult ld1 [place] Coma Score: 15:22 Eye Response: spontaneous(4). Motor Response: obeys commands(6). Verbal Response: bobby oriented(5). Total: 15. ED Course: 14:35 Patient arrived in ED. bobby 14:35 Cali Mcmahan MD is Attending Physician. bobby 14:37 Amairani Tse, BACILIO is Primary Nurse. ld1 14:39 Triage completed. ld1 14:39 Arm band placed on right wrist. ld1 14:40 Patient has correct armband on for positive identification. Placed in gown. Bed in low ld1 position. Call light in reach. Side rails up X2. Pulse ox on. NIBP on. Door closed. Noise minimized. Warm blanket given. 14:40 No provider procedures requiring assistance completed. Maintain EMS IV. Dressing ld1 intact. Good blood return noted. Site clean \T\ dry. Gauge \T\ site: 20G RW. Flushed with 10 mL NS. 15:19 Head C Spine Mpr Wo Con In Process Unspecified. EDMS 15:20 Chest Abd Pelvis Wo Con In Process Unspecified. EDMS 15:55 Initial lab(s) drawn, by me, sent to lab. EKG done, by ED staff, reviewed by Cali Mcmahan MD. Inserted saline lock: 22 gauge in left forearm, using aseptic technique. Blood collected. Flushed with 10 mL NS. 15:57 Basic Metabolic Panel Sent. ko1 15:57 CBC with Diff Sent. ko1 15:57 LFT's Sent. ko1 15:57 Magnesium Sent. ko1 15:57 NT PRO-BNP Sent. ko1 15:57 PT-INR Sent. ko1 15:57 Troponin HS Sent. ko1 16:00 XRAY Chest (1 view) In Process Unspecified. EDMS 17:55 IV discontinued, intact, bleeding controlled, No redness/swelling at site. ld1 Administered Medications: 15:03 Drug: Boostrix Tdap IM 0.5 ml IM once; as a single dose Route: IM; Site: left deltoid; ld1 15:30 Follow up: Response: No adverse reaction ld1 15:57 Drug: NS 0.9% IV 500 ml IV at bolus once Route: IV; Rate: bolus; Site: left forearm; ruchi2 16:25 Follow up: Response: No adverse reaction; IV Status: Completed infusion; IV Intake: ld1 500ml 17:15 Drug: Lidocaine-Epinephrine Infiltration -1%: (1:100,000) 5 ml 20 ml Infiltration once; ld1 to bedside {Note: Administered by Dr. Mcmahan.} Volume: 20 ml; Route: Infiltration; 17:35 Follow up: Response: No adverse reaction ld1 17:33 Drug: Potassium PO Effervescent Tablet 25 mEq PO once; dissolve in 4 ounces of water or ld1 juice Route: PO; 17:54 Follow up: Response: No adverse reaction ld1 17:33 Drug: Kvvutmie-Tafxoahzrx-Wkywmbdep Topical Ointment 1 application Topical once Route: ld1 Topical; Site: affected area; 17:54 Follow up: Response: No adverse reaction ld1 Medication: 17:55 Vaccine Information Statement (VIS) provided today. Questions and/or concerns ld1 addressed. VIS edition date: August 01, 2024. Intake: 16:25 IV: 500ml; Total: 500ml. ld1 Outcome: 17:33 Discharge ordered by MD. rosales 17:54 Discharged to home via wheelchair, with family, ld1 17:54 Condition: stable 17:54 Discharge instructions given to patient, family, Instructed on discharge instructions, follow up and referral plans. medication usage, Demonstrated understanding of instructions, follow-up care, medications, Prescriptions given X 1, 17:55 Patient left the ED. ld1 Signatures: Dispatcher [employer] Cali Lagunas MD MD cha Sims, Lauren RN RN ld1 Val Henry RN RN ko1 ALISON ZAMORA RN RN dd2
--- NOTE | 2024-08-01 17:34 | EDPHYS ---
Physician Documentation [facility] Name: Alberta Brown Age: 88 yrs Sex: Female : 1935 Arrival Date: 08/01/2024 Time: 14:30 Bed 3 Private MD: ED Physician Cali Mcmahan HPI: 08/01 15:19 This 88 yrs old Female presents to ER via EMS with complaints of Fall Injury. bobby 15:19 Details of fall: The patient fell from an upright position, while walking. Onset: The bobby symptoms/episode began/occurred just prior to arrival. Associated injuries: The patient sustained injury to the head, contusion, laceration, pain. Severity of symptoms: At their worst the symptoms were mild, in the emergency department the symptoms are unchanged. The patient has not experienced similar symptoms in the past. Historical: - Allergies: 14:39 No Known Allergies; ld1 - PMHx: 14:39 Hypertension; Bile duct cancer (Hypertension); ld1 - Immunization history:: Adult Immunizations up to date. - Infectious Disease History:: Denies. - Social history:: Smoking status: Patient denies any tobacco usage or history of. ROS: 15:20 Constitutional: Negative for fever, chills, and weight loss, Eyes: Negative for injury, bobby pain, redness, and discharge, ENT: Negative for injury, pain, and discharge, Neck: Negative for injury, pain, and swelling, Cardiovascular: Negative for chest pain, palpitations, and edema, Respiratory: Negative for shortness of breath, cough, wheezing, and pleuritic chest pain, Abdomen/GI: Negative for abdominal pain, nausea, vomiting, diarrhea, and constipation, Back: Negative for injury and pain, : Negative for injury, bleeding, discharge, and swelling, MS/Extremity: Negative for injury and deformity, Psych: Negative for depression, anxiety, suicide ideation, homicidal ideation, and hallucinations, Allergy/Immunology: Negative for hives, rash, and allergies, Endocrine: Negative for neck swelling, polydipsia, polyuria, polyphagia, and marked weight changes, Hematologic/Lymphatic: Negative for swollen nodes, abnormal bleeding, and unusual bruising, 15:20 Skin: Positive for laceration(s), of the left zoroastrianism, Exam: 15:20 Constitutional: This is a well developed, well nourished patient who is awake, alert, bobby and in no acute distress. Head/Face: Normocephalic, atraumatic. Eyes: Pupils equal round and reactive to light, extra-ocular motions intact. Lids and lashes normal. Conjunctiva and sclera are non-icteric and not injected. Cornea within normal limits. Periorbital areas with no swelling, redness, or edema. ENT: Nares patent. No nasal discharge, no septal abnormalities noted. Tympanic membranes are normal and external auditory canals are clear. Oropharynx with no redness, swelling, or masses, exudates, or evidence of obstruction, uvula midline. Mucous membranes moist. Neck: Trachea midline, no thyromegaly or masses palpated, and no cervical lymphadenopathy. Supple, full range of motion without nuchal rigidity, or vertebral point tenderness. No Meningismus. Chest/axilla: Normal chest wall appearance and motion. Nontender with no deformity. No lesions are appreciated. Cardiovascular: Regular rate and rhythm with a normal S1 and S2. No gallops, murmurs, or rubs. Normal PMI, no JVD. No pulse deficits. Respiratory: Lungs have equal breath sounds bilaterally, clear to auscultation and percussion. No rales, rhonchi or wheezes noted. No increased work of breathing, no retractions or nasal flaring. Abdomen/GI: Soft, non-tender, with normal bowel sounds. No distension or tympany. No guarding or rebound. No evidence of tenderness throughout. Back: No spinal tenderness. No costovertebral tenderness. Full range of motion. Female : Normal external genitalia. MS/ Extremity: Pulses equal, no cyanosis. Neurovascular intact. Full, normal range of motion. Neuro: Awake and alert, GCS 15, oriented to person, place, time, and situation. Cranial nerves II-XII grossly intact. Motor strength 5/5 in all extremities. Sensory grossly intact. Cerebellar exam normal. Normal gait. Psych: Awake, alert, with orientation to person, place and time. Behavior, mood, and affect are within normal limits. 15:20 Skin: abscess, not appreciated, cellulitis, is not appreciated, induration, is not appreciated, injury, laceration(s), the wound is approximately 2.5 cm(s), with a depth of .25 cm(s), of the face, Vital Signs: 14:42 Weight 60.78 kg; Height 5 ft. 3 in. ; Pain 0/10; ld1 15:30 BP 126 / 74; Pulse 89; Resp 18; Pulse Ox 97% on R/A; ld1 17:34 BP 130 / 76; Pulse 89; Resp 18; Pulse Ox 97% on R/A; ld1 14:42 Body Mass Index 23.74 (60.78 kg, 160.02 cm) ld1 14:42 Pain Scale: Adult ld1 [place] Coma Score: 15:22 Eye Response: spontaneous(4). Motor Response: obeys commands(6). Verbal Response: bobby oriented(5). Total: 15. Laceration: 15:20 Wound Repair of 2.5cm ( 1.0in ) subcutaneous laceration to face and left zoroastrianism. bobby Irregularly shaped.. Distal neuro/vascular/tendon intact. Anesthesia: Local anesthetic administered with 5 mls of 1% lidocaine w/ Epi. Wound prep: Simple cleansing by me. Skin closed with 2 5-0 Prolene using interrupted sutures and sterile technique. Dressed with Neosporin, pressure dressing. Patient tolerated well. MDM: 14:35 Patient medically screened. bobby 14:36 Patient medically screened. bobby 15:22 Differential diagnosis: Contusion of Hematoma on Laceration of Intracranial bleed- bobby Concussion without LOC. cerebral contusion. Differential diagnosis: abrasion, closed head injury, contusion, fracture, laceration, multiple trauma, sprain, strain. Data reviewed: vital signs, EMS record, lab test result(s), EKG, radiologic studies, CT scan, plain films. Consideration of Admission/Observation Escalation of care including admission/observation considered. I considered the following discharge prescriptions or medication management in the emergency department Medications were administered in the Emergency Department. See MAR. Independent interpretation of the following test(s) in the Emergency Department EKG: See my EKG interpretation above. Test considered but Not performed: MRI: NO MRI BRAIN. Historians other than the Patient: Family Member: FAMILY WELL INFORMED. Care significantly affected by the following chronic conditions: Hypertension, Cancer. Counseling: I had a detailed discussion with the patient and/or guardian regarding the historical points, exam findings, and any diagnostic results supporting the discharge/admit diagnosis, lab results, radiology results, the need for outpatient follow up, for definitive care, a family practitioner. 08/01 14:49 Order name: Basic Metabolic Panel; Complete Time: 17:16 [facility] 08/01 14:49 Order name: CBC with Diff; Complete Time: 17:16 [facility] 08/01 14:49 Order name: LFT's; Complete Time: 17:16 [facility] 08/01 14:49 Order name: Magnesium; Complete Time: 17:16 [facility] 08/01 14:49 Order name: NT PRO-BNP; Complete Time: 17:16 [facility] 08/01 14:49 Order name: PT-INR; Complete Time: 17:16 [facility] 08/01 14:49 Order name: Troponin HS; Complete Time: 17:16 [facility] 08/01 14:49 Order name: XRAY Chest (1 view); Complete Time: 17:16 [facility] 08/01 15:05 Order name: Head C Spine Mpr Wo Con; Complete Time: 17:16 EDMS 08/01 15:08 Order name: Chest Abd Pelvis Wo Con; Complete Time: 17:16 EDMS 08/01 14:49 Order name: Cardiac monitoring; Complete Time: 14:51 [facility] 08/01 14:49 Order name: EKG - Nurse/Tech; Complete Time: 15:57 [facility] 08/01 14:49 Order name: IV Saline Lock; Complete Time: 14:51 [facility] 08/01 14:49 Order name: Labs collected and sent; Complete Time: 15:57 [facility] 08/01 14:49 Order name: O2 Per Protocol; Complete Time: 14:51 [facility] 08/01 14:49 Order name: O2 Sat Monitoring; Complete Time: 14:51 [facility] 08/01 14:49 Order name: Dressing - Wound; Complete Time: 15:02 [facility] 08/01 14:49 Order name: Gloves, Sterile; Complete Time: 15:02 [facility] 08/01 14:49 Order name: Prolene, Sutures; Complete Time: 15:02 [facility] 08/01 14:49 Order name: Setup Suture Tray; Complete Time: 15:02 [facility] Administered Medications: 15:03 Drug: Boostrix Tdap IM 0.5 ml IM once; as a single dose Route: IM; Site: left deltoid; ld1 15:30 Follow up: Response: No adverse reaction ld1 15:57 Drug: NS 0.9% IV 500 ml IV at bolus once Route: IV; Rate: bolus; Site: left forearm; dd2 16:25 Follow up: Response: No adverse reaction; IV Status: Completed infusion; IV Intake: ld1 500ml 17:15 Drug: Lidocaine-Epinephrine Infiltration -1%: (1:100,000) 5 ml 20 ml Infiltration once; ld1 to bedside {Note: Administered by Dr. Mcmahan.} Volume: 20 ml; Route: Infiltration; 17:35 Follow up: Response: No adverse reaction ld1 17:33 Drug: Potassium PO Effervescent Tablet 25 mEq PO once; dissolve in 4 ounces of water or ld1 juice Route: PO; 17:54 Follow up: Response: No adverse reaction ld1 17:33 Drug: Eeplduon-Fpvmyovhdi-Ntevupqld Topical Ointment 1 application Topical once Route: ld1 Topical; Site: affected area; 17:54 Follow up: Response: No adverse reaction ld1 Disposition Summary: 08/01/24 17:33 Discharge Ordered Notes: Location: Home bobby Problem: new bobby Symptoms: have improved bobby Condition: Stable bobby Diagnosis - Fall (on) (from) unspecified stairs and steps bobby - Unspecified injury of head, initial encounter bobby - Laceration without foreign body of other part of head - LEFT ANGLICAN bobby - Other ascites bobby - Other cholelithiasis with obstruction - CBD CANCER bobby - Pleural effusion, not elsewhere classified bobby - Hypokalemia bobby Followup: bobby - With: Private Physician - When: 2 - 3 days - Reason: Recheck today's complaints, Continuance of care, Re-evaluation by your physician Discharge Instructions: - Discharge Summary Sheet bobby - Ascites bobby - Potassium Content of Foods bobby - Head Injury, Adult bobby - Fall Prevention in the Home, Adult bobby - Laceration Care, Adult bobby - Facial Laceration bobby - Pleural Effusion bobby - Cholelithiasis bobby - Facial Laceration, Uyly-ys-Gajx bobby - Fall Prevention in the Home, Adult, Bcyg-ai-Tqvx bobby - Head Injury, Adult, Hmom-qy-Upsj bobby - Pleurisy, Bkde-lt-Iwtz bobby - Hypokalemia bobby Forms: - Medication Reconciliation Form bobby - Antibiotic Education bobby - Prescription Opioid Use bobby - Patient Portal Instructions bobby - Leadership Thank You Letter bobby Prescriptions: - Centany 2 % Topical ointment - apply 1 application TOPICAL route 3 times per day; 15 gram; Refills: 0, Product bobby Selection Permitted Signatures: Dispatcher [employer] EDCali Cowart MD MD cha Sims, Lauren, RN RN ld1 ALISON ZAMORA RN RN dd2 Corrections: (The following items were deleted from the chart) 14:50 14:50 BASIC METABOLIC PANEL+C.LAB.BRZ ordered. EDMS EDMS 14:50 14:50 CBC+H.LAB.BRZ ordered. EDMS EDMS 14:50 14:50 HEPATIC FUNCTION+C.LAB.BRZ ordered. EDMS EDMS 14:50 14:50 MAGNESIUM+C.LAB.BRZ ordered. EDMS EDMS 14:50 14:50 PROBNP+C.LAB.BRZ ordered. EDMS EDMS 14:50 14:50 PROTIME (+INR)+COAG.LAB.BRZ ordered. EDMS EDMS 14:50 14:50 Troponin High Sensitivity+C.LAB.BRZ ordered. EDMS EDMS 14:50 14:50 Chest Single View+RAD.RAD.BRZ ordered. EDMS EDMS 14:50 14:50 Head C Spine Cap Wo Con+CT.RAD.BRZ ordered. EDMS EDMS
[2024-08-01 18:14] VITALS: O2SAT 97
[2024-08-01 18:20] VITALS: BP 130/76
--- NOTE | 2024-08-03 16:28 | EKG ---
Test Date: 2024-08-01 Test Time: 15:50:05 Labor Supervisor: Desiree CASTRO MEASUREMENT RESULTS: Intervals: Rate: 93 MI: 170 QRSD: 86 QT: 366 QTc: 455 [facility]: P: 87 MI: 170 QRS: 53 T: 82 INTERPRETIVE STATEMENTS: Sinus rhythm with premature atrial complexes Otherwise normal ECG Compared to ECG 03/26/2012 19:20:02 Atrial premature complex(es) now present ST (T wave) deviation no longer present Electronically Signed On 08-03-24 16:23:22 CDT by Hector Davila
== END 2024-08-01 17:55 | disposition home or self-care (01) ==
LOC: ER 14:30
DX: S01.81XA Laceration without foreign body of other part of head, initial encounter (principal); R18.8 Other ascites; K80.81 Other cholelithiasis with obstruction; J90 Pleural effusion, not elsewhere classified; E87.6 Hypokalemia; C22.1 Intrahepatic bile duct carcinoma; I10 Essential (primary) hypertension
CPT/HCPCS: 93005; 85025; 80048; 36415; 83735; 85610; 80076; 84484; 83880; 70450; 71250; 72125; 74176; 71045; 96372; 99285; 12011; J7040

== ENCOUNTER 2024-08-25 08:03 | Inpatient (IN) | payer OTHER ==
[2024-08-25 08:20] LABS: Absolute Eosinophils 0.1 K/uL (0-0.5); Absolute Lymphocytes (CBC) 0.2 K/uL (0.7-4.9); Absolute Monocytes 0.1 K/uL (0.1-1.3); Absolute Neutrophil 5.5 K/uL (1.8-8.0); Basophils % 0.2 % (0-1.3); Eosinophils % 1.6 % (0-4.4); Hematocrit 29.4 % (36.0-45.0); Hemoglobin 9.9 g/dL (12.0-15.0); Lymphocytes % 3.8 % (15.3-44.8); MCHC 33.7 g/dL (32.0-36.0); MCV 83.1 fL (80-100); MPV 8.3 fL (7.6-11.3); Monocytes % 1.6 % (3.3-12.3); Neutrophils % 92.8 % (41.7-73.7); Platelets 249 thou/uL (152-406); RBC Red Blood Cell Count 3.53 M/uL (3.86-4.86)
[2024-08-25 08:27] LABS: PT Prothrombin Time 13.2 SECONDS (9.4-12.5); PTT, Activated Partial Thromb 24.8 SECONDS (24.3-36.9); Protime INR 1.18
[2024-08-25] MEDS ORDERED: CEFTRIAXONE 1000 MG/VIAL ONE (08:27)
[2024-08-25] MEDS ORDERED: NA CHLORIDE 0.9% 1,000 ML ONE (08:27)
[2024-08-25] MEDS ORDERED: dilTIAZem HCL 25 MG/5 ML VIAL IV ONE (08:27)
[2024-08-25 08:38] LABS: Albumin 2.3 g/dL (3.4-5.0); Albumin/Globulin Ratio 0.6 (1.1-1.8); Anion Gap 8.8 mEq/L (5.0-15.0); Bilirubin Total 1.1 mg/dL (0.2-1.0); Globulin 3.6 g/dL (2.3-3.5); Potassium 3.8 mEq/L (3.5-5.1); Protein, Total 5.9 g/dL (6.4-8.2)
[2024-08-25 09:03] LABS: Differential Total Cells Count 100
[2024-08-25 09:04] LABS: Band Neutrophils 1 % (0-1); Blood Morphology Comment NOT SEEN (NOT SEEN); Dohle Bodies PRESENT; Lymphocytes 1 % (15-42); Monocytes 1 % (0-10); Platelet Estimate ADEQ; Platelets Clumped FEW; Segmented Neutrophils 96 % (40-80)
--- NOTE | 2024-08-25 09:33 | RAD REPORT ---
EXAMINATION: Abdomen Pelvis Wo Contrast CLINICAL INDICATION: Female, 88 years old. abd distention TECHNIQUE: CT abdomen and pelvis was performed, without IV contrast, as per department protocol. Axia l, sagittal and coronal reconstructions were obtained. One or more of the following dose reduction techniques were used: Automated exposure control, adjustment of the mA and kV according to the patien t size, and iterative reconstruction. Unless otherwise specified, incidental findings do not require dedicated imaging follow-up. COMPARISON: 08/01/2024 CT chest, abdomen, and pelvis FINDINGS: The lack of intravenous contrast limits the sensitivity of this exam for evaluation of solid visceral organs, vascular structures, and retroperitoneum. LOWER CHEST: Small layering bilateral pleural effusions LIVER: Normal in size. Central atrophic changes again seen. Pancreatic/CBD stents, unchanged in posit ion. No focal lesion. BILIARY SYSTEM: No suspicious abnormalities. SPLEEN: Normal size. No focal lesion. PANCREAS: No mass, ductal dilation, or gianfranco-pancreatic fluid. ADRENALS: Normal; no mass. KIDNEYS AND URETERS: Normal size and contour. No hydronephrosis. URINARY BLADDER: Normal contour. GASTROINTESTINAL TRACT: Subjective wall thickening noted throughout most of the colon, some central s mall bowel loops, and the proximal stomach. This may be seen in the setting of portal hypertension or fluid overload. No evidence of bowel obstruction, free air or abscess. Moderate volume of free si nus, probably stable compared to prior exam. APPENDIX: Normal appendix. LYMPH NODES: No lymphadenopathy. MUSCULOSKELETAL: No acute or suspicious osseous abnormality. ADDITIONAL FINDINGS: Diffuse body wall edema. IMPRESSION: Moderate free ascites. Subjective wall thickening throughout the stomach, most of the colon, and segments of central abdomin al small bowel, which may relate to ongoing portal hypertension or fluid overload. Diffuse body wall edema, suggesting fluid overload as well. Small layering bilateral pleural effusions. Otherwise stable findings as above.
--- NOTE | 2024-08-25 09:36 | RAD REPORT ---
EXAM: Head Brain Wo Cont HISTORY: ams COMPARISON: 09/25/2015 TECHNIQUE: Multiple contiguous axial images were obtained for a CT of the brain without contrast. Sag ittal and coronal reformats were performed. One or more of the following dose reduction techniques were used: Automated exposure control, adjus tment of the mA and kV according to patient size, and iterative reconstruction. Unless otherwise specified, incidental findings do not require dedicated imaging follow-up. FINDINGS: No evidence of hydrocephalus, intracranial hemorrhage, or extra-axial fluid collection. The brain is normal in morphology. The calvarium is intact. The visualized paranasal sinuses and mastoid air cells are essentially clear . IMPRESSION: No evidence of acute intracranial abnormality.
--- NOTE | 2024-08-25 09:49 | RAD REPORT ---
EXAMINATION: ONE VIEW CHEST XR CLINICAL INDICATION: Female, 88 years old.,COUGH TECHNIQUE: Frontal chest projection is submitted. Examination is limited by patient positioning and t echnique. COMPARISON: 08/01/2024 FINDINGS: Elevation of the right hemidiaphragm again seen. The lungs are diffusely emphysematous but grossly cl ear. No pneumothorax or sizable effusion. The heart is normal in size. Lobulated calcific density adjacent to the right humeral neck, stable. IMPRESSION: No acute intrathoracic abnormalities.
[2024-08-25 10:11] LABS: Specific Gravity 1.006 (1.005-1.030); Urine Bilirubin NEGATIVE (Negative); Urine Blood Negative (Negative); Urine Clarity Clear (Clear); Urine Color Colorless (Yellow); Urine Glucose NEGATIVE (Negative); Urine Ketones NEGATIVE (Negative); Urine Microscopic Reflex YN NO UMIC; Urine Nitrite NEGATIVE (Negative); Urine Protein NEGATIVE (Negative); Urine Urobilinogen Normal (Normal); Urine pH 6.5 (5.0-7.0)
--- NOTE | 2024-08-25 10:59 | EDPHYS ---
Physician Documentation [facility] Name: Alberta Brown Age: 88 yrs Sex: Female : 1935 Arrival Date: 08/25/2024 Time: 08:03 Bed 3 Private MD: ED Physician Eduardo Donnelly HPI: 08/25 08:10 This 88 yrs old Female presents to ER via Unassigned with complaints of AMS. ec2 08:14 Patient arrives today for evaluation of altered mental status. EMS reports that patient ec2 has been altered for the past several days and progressively getting worse. Patient is been having some diarrhea as well. EMS noted the patient to be in A-fib with RVR, rates in the 180s and ultimately gave the patient 6.25 mg of diltiazem x 2 with some improvement in heart rate. Patient also with history of ascites requiring paracentesis. Historical: - Allergies: 08:15 No Known Allergies; ko1 - Home Meds: 08:15 Unable to obtain [Active]; ko1 - PMHx: 08:15 BILE DUCT CANCER (Hypertension); Hypertension; ko1 - Immunization history:: Adult Immunizations up to date. - Infectious Disease History:: Denies. - Social history:: Smoking status: Patient denies any tobacco usage or history of. ROS: 08:10 Constitutional: as per hpi ec2 Exam: 08:10 Constitutional: GEN: NAD Head: atraumatic Eyes: EOMI Ears: External ears are ec2 normal. CV: regular rate LUNGS: no respiratory distress ABD: Minimally distended abdomen, not guarding, not rigid. SKIN: no evidence of rashes MSK: no evidence of trauma Vital Signs: 08:10 BP 107 / 77; Pulse 125; Resp 17; Temp 98.8; Pulse Ox 95% on R/A; ko1 08:43 BP 99 / 63; Pulse 115; Resp 16; Pulse Ox 95% ; ko1 10:54 BP 111 / 67; Pulse 125; Resp 16; Pulse Ox 97% on R/A; mb9 13:30 BP 106 / 62; Pulse 111; Resp 16; Pulse Ox 100% ; ko1 15:00 BP 111 / 68; Pulse 121; Resp 16; Pulse Ox 99% ; ko1 Procedures: 10:56 Paracentesis: The risks and benefits of the procedure were discussed with the patient ec2 or guardian in detail, aseptic technique was employed throughout the procedure, the catheter was placed in the right lower quadrant, appoximately .06 liters of fluid was removed, the fluid was normal, the patient tolerated the procedure well, the patient did not experience any apparent complications. MDM: 08:08 Patient medically screened. ec2 08:11 Data reviewed: vital signs. ED course: Patient arrives today for evaluation of altered ec2 mental status. Examination remarkable for individual who is tachycardic and altered with a slightly distended abdomen. Will obtain septic workup, empirically treat with ceftriaxone, evaluate for processes such as SBP, dehydration, electrolyte disturbances.. 08:13 ED course: EKG independently reviewed and interpreted by me, shows atrial fibrillation ec2 with rapid ventricular response at a rate of 137, intervals are nonactionable, ST segments are not elevated . 08:49 ED course: Metabolic profile shows significant hyponatremia with a sodium of 121. PTT ec2 and PT are nonactionable, CBC shows slight anemia. . 09:47 ED course: CT of the head shows no acute intracranial process, CT abdomen pelvis shows ec2 no acute intra-abdominal process, does show moderate free ascites, does have bilateral pleural effusions. . 10:07 ED course: Ammonia level undetectable, lactic acid within normal ranges. Chest x-ray ec2 shows no acute intrathoracic process. . 10:57 ED course: Perform paracentesis, removed 60 mL, no significant cloudiness of bloodiness ec2 appreciated. Ultimately patient with volume overload, ascites, will admit for A-fib with RVR, hyponatremia.. ED course: Discussed case with hospitalist agrees to except patient for admission.. 10 08:09 Order name: Blood Culture Adult (2) ec2 08/25 08:09 Order name: CBC with Diff; Complete Time: 09:11 ec2 10 08:09 Order name: CMP; Complete Time: 08:48 ec2 10 08:09 Order name: Lactate w/ 2H reflex if indic.; Complete Time: 10:07 ec2 10 08:09 Order name: Protime (+inr); Complete Time: 08:48 ec2 10 08:09 Order name: Ptt, Activated; Complete Time: 08:48 ec2 08/25 08:09 Order name: Urinalysis w/ reflexes; Complete Time: 10:12 ec2 08/25 08:23 Order name: Manual Differential; Complete Time: 09:11 EDMS 08/25 09:28 Order name: AMMONIA; Complete Time: 10:07 mb9 08/25 10:18 Order name: ALBUMIN, PERITONEAL FLUID EDMS 08/25 10:18 Order name: Body Fluid Cell Count EDMS 08/25 10:18 Order name: GLUCOSE, PERITONEAL FLUID EDMS 08/25 10:18 Order name: TOTAL PROTEIN,PERITONEAL FLUID EDMS 08/25 10:18 Order name: Gram Stain EDMS 08/25 11:26 Order name: LD, PERITONEAL FLUID EDMS 08/25 11:45 Order name: CBC with Automated Diff EDMS 08/25 11:45 Order name: CBC with Automated Diff EDMS 08/25 11:45 Order name: CBC with Automated Diff EDMS 08/25 11:45 Order name: CBC with Automated Diff EDMS 08/25 11:45 Order name: CBC with Automated Diff EDMS 08/25 11:45 Order name: CBC with Automated Diff EDMS 08/25 11:45 Order name: Comprehensive Metabolic Panel EDMS 08/25 11:45 Order name: Comprehensive Metabolic Panel EDMS 08/25 11:45 Order name: Comprehensive Metabolic Panel EDMS 08/25 11:45 Order name: Comprehensive Metabolic Panel EDMS 08/25 11:45 Order name: Comprehensive Metabolic Panel EDMS 08/25 11:45 Order name: Comprehensive Metabolic Panel EDMS 08/25 11:45 Order name: Magnesium EDMS 08/25 11:45 Order name: Magnesium EDMS 08/25 11:45 Order name: Magnesium EDMS 08/25 11:45 Order name: Magnesium EDMS 08/25 11:45 Order name: Magnesium EDMS 08/25 11:45 Order name: Magnesium EDMS 08/25 11:45 Order name: Phosphorus EDMS 08/25 11:45 Order name: Phosphorus EDMS 08/25 11:45 Order name: Phosphorus EDMS 08/25 11:45 Order name: Phosphorus EDMS 08/25 11:45 Order name: Phosphorus EDMS 08/25 11:45 Order name: Phosphorus EDMS 08/25 08:09 Order name: CXR XRAY; Complete Time: 10:07 ec2 08/25 08:09 Order name: CT Head Brain wo Cont; Complete Time: 09:47 ec2 08/25 08:10 Order name: CT Abd/Pelvis - Without Contrast; Complete Time: 09:47 ec2 08/25 10:18 Order name: ER ABDOMINAL PARACENTESIS EDNV 08/25 12:01 Order name: Echo with Doppler EDMS 08/25 08:09 Order name: EKG; Complete Time: 08:09 ec2 08/25 08:09 Order name: Accucheck; Complete Time: 08:17 ec2 08/25 08:09 Order name: Cardiac monitoring; Complete Time: 08:17 ec2 08/25 08:09 Order name: Cath; Complete Time: 10:02 ec2 08/25 08:09 Order name: EKG - Nurse/Tech; Complete Time: 08:17 ec2 08/25 08:09 Order name: IV Saline Lock - Large Bore; Complete Time: 08:17 ec2 08/25 08:09 Order name: Labs collected and sent; Complete Time: 08:17 ec2 08/25 08:09 Order name: O2 Per Protocol; Complete Time: 08:17 ec2 08/25 08:09 Order name: O2 Sat Monitoring; Complete Time: 08:17 ec2 08/25 08:09 Order name: Vital Signs; Complete Time: 08:17 ec2 Administered Medications: 08:37 Drug: Diltiazem IVP 10 mg IVP once; Over 2 minutes Route: IVP; Site: left antecubital; ko1 08:52 Follow up: Response: No adverse reaction; RASS: Alert and Calm (0) ko1 09:42 Drug: Rocephin IV 1 grams IV at calculated rate once; Given slow IV push per pharmacy ko1 instructions Route: IV; Rate: calculated rate; Site: left antecubital; 09:57 Follow up: Response: No adverse reaction; IV Status: Completed infusion; IV Intake: [id number] Disposition Summary: 08/25/24 10:59 Hospitalization Ordered Notes: Hospitalization Status: Inpatient Admission ec2 [facility] ec2 Condition: Stable ec2 Problem: an ongoing problem ec2 Symptoms: have improved ec2 Bed/Room Type: Standard ec2 Provider: Tad Lucia(08/25/24 11:07) ec2 Room Assignment: [facility](08/25/24 12:59) 4 Diagnosis - Hypo-osmolality and hyponatremia ec2 - Other ascites ec2 - Persistent atrial fibrillation ec2 Forms: - Medication Reconciliation Form ec2 - SBAR form ec2 - Leadership Thank You Letter ec2 Critical care time excluding procedures: 10:59 Critical care time: Bedside Care: 30 minutes, Consultation: 5 minutes. Total time: 35 ec2 minutes Signatures: Dispatcher [employer] EDNV Gena Magallanes mb4 Val Henry RN RN ko1 Eduardo Donnelly MD MD ec2 Corrections: (The following items were deleted from the chart) 08:09 08:09 Chest Single View+RAD.RAD.BRZ ordered. EDNV EDMS 09:19 08:15 PMHx: Kidney disease; ko1 ko1 09:19 08:15 PSHx: peritoneal dialysis access; ko1 ko1 09:28 09:28 AMMONIA+C.LAB.BRZ ordered. EDNV EDMS 11:07 10:59 Pam Tinoco ec2 ec2 11:27 10:18 Lactic Dehydrogenase ordered. EDMS EDMS 12:59 10:59 ec2 mb4
--- NOTE | 2024-08-25 10:59 | ER ---
Nurse's Notes [facility] Name: Alberta Brown Age: 88 yrs Sex: Female : 1935 Arrival Date: 08/25/2024 Time: 08:03 Bed 3 Private MD: Diagnosis: Hypo-osmolality and hyponatremia;Other ascites;Persistent atrial fibrillation Presentation: 08/25 08:10 Chief complaint: EMS states: called for patient having diarrhea, heart rate was ko1 noted to be 170's and afib rvr, she has routine abdominal drains, last paracentesis was Wednesday and 1.3L was removed. Coronavirus screen: At this time, the client does not indicate any symptoms associated with coronavirus-19. Ebola Screen: No symptoms or risks identified at this time. Initial Sepsis Screen: Does the patient meet any 2 criteria? No. Patient's initial sepsis screen is negative. Does the patient have a suspected source of infection? No. Patient's initial sepsis screen is negative. Risk Assessment: Do you want to hurt yourself or someone else? Patient reports no desire to harm self or others. Onset of symptoms is unknown. Care prior to arrival: Medication(s) given: Normal saline infusion, 250cc Tylenol, 1000 mg, IV cardizem 6.25mg IV x 2 separate doses IV initiated. 18 GA, in the left forearm. 08:10 Method Of Arrival: EMS: [facility] ko1 08:10 Acuity: MAYELA 3 ko1 Triage Assessment: 08:15 General: Appears in no apparent distress. Behavior is calm, cooperative. Pain: Denies ko1 pain. Historical: - Allergies: 08:15 No Known Allergies; ko1 - Home Meds: 08:15 Unable to obtain [Active]; ko1 - PMHx: 08:15 BILE DUCT CANCER (Hypertension); Hypertension; ko1 - Immunization history:: Adult Immunizations up to date. - Infectious Disease History:: Denies. - Social history:: Smoking status: Patient denies any tobacco usage or history of. Screenin:17 [facility] ED Fall Risk Assessment (Adult) History of falling in the last 3 months, mb9 including since admission No falls in past 3 months (0 pts) Confusion or Disorientation Yes (5 pts) Intoxicated or Sedated No (0 pts) Impaired Gait Yes (1 pt) Mobility Assist Device Used Yes (1 pt) Altered Elimination Yes (1 pt) Score/Fall Risk Level 0 - 2 = Low Risk Oriented to surroundings, Maintained a safe environment, Educated pt \\T\\ family on fall prevention, incl call for assistance when getting out of bed. Abuse screen: Denies threats or abuse. Nutritional screening: No deficits noted. Tuberculosis screening: No symptoms or risk factors identified. Assessment: 08:43 Neuro: Oriented to person, place. Cardiovascular: Patient's skin is warm and dry. ko1 Rhythm is atrial fibrillation with rapid ventricular response. Respiratory: No deficits noted. GI: Abdomen is round distended. EENT: No deficits noted. Derm: No deficits noted. Musculoskeletal: No deficits noted. 08:43 : No deficits noted. ko1 Vital Signs: 08:10 BP 107 / 77; Pulse 125; Resp 17; Temp 98.8; Pulse Ox 95% on R/A; ko1 08:43 BP 99 / 63; Pulse 115; Resp 16; Pulse Ox 95% ; ko1 10:54 BP 111 / 67; Pulse 125; Resp 16; Pulse Ox 97% on R/A; mb9 13:30 BP 106 / 62; Pulse 111; Resp 16; Pulse Ox 100% ; ko1 15:00 BP 111 / 68; Pulse 121; Resp 16; Pulse Ox 99% ; ko1 ED Course: 08:08 Patient arrived in ED. ko1 08:08 Eduardo Donnelly MD is Attending Physician. ec2 08:15 Triage completed. ko1 08:15 Arm band placed on right wrist. Patient placed in an exam room, on a stretcher, on ko1 classroom monitor, on pulse oximetry, Patient notified of wait time. 08:16 Initial lab(s) drawn, by me, sent to lab. EKG done, by ED staff, reviewed by Eduardo Donnelly MD. 08:16 Maintain EMS IV. Dressing intact. Good blood return noted. Site clean \\T\\ dry. Gauge \\T\\ allan 9 site: 18 g left FA. Flushed with 10 mL NS. 08:16 Placed in gown. Bed in low position. Call light in reach. Side rails up X 1. Provided candice Education on: press call light if needing anything. Client placed on continuous cardiac and pulse oximetry monitoring. NIBP monitoring applied. lunchroom monitor on. 08:17 Arm band placed on. mb9 08:29 CT Head Brain wo Cont In Process Unspecified. EDMS 08:29 CT Abd/Pelvis - Without Contrast In Process Unspecified. EDMS 08:38 Val Henry, RN is Primary Nurse. ko1 09:25 First set of blood cultures drawn by me. em1 09:31 AMMONIA Sent. em1 09:31 Lactate w/ 2H reflex if indic. Sent. em1 09:37 CXR XRAY In Process Unspecified. EDMS 09:42 Blood Culture Adult (2) Sent. ko1 10:02 Urinalysis w/ reflexes Sent. ko1 10:14 Urine collected: Guillen catheter specimen, clear, Amount Returned: 500mL. Guillen cath ko1 inserted, using sterile technique, 16 Fr., by me, balloon inflated, to gravity drainage, urine specimen collected. returned clear yellow urine. Patient tolerated well. 10:59 Pam Tinoco MD is Hospitalizing Provider. ec2 11:07 Tad Lucia is Hospitalizing Provider. ec2 12:05 1205 CM met with and her Edgar at the bedside in the ED exam room. ane Patient identified by name and . Demographic sheet confirmed with both and . Patient states she lives with Edgar in a single story home. She reports that prior to admission, she has not been ambulating and wishes she had a wheelchair. She reports having a left "cracked kneecap" from a fall injury. She is currently under the care of Dr. Marcelino out of [facility] in [place], [place]. Her follow appointment is scheduled for September 04. She is currently wearing a boot and performs ADLs with assistance from her Edgar. Prior to the fall, she states she performed ADLs independently. states she has an MPOA in place and her PCP is Dr.Suhani Kilgore. DME in the home includes shower chairs. Patient does not have HH, but would like HH and PT. No home oxygen, or other medical services at this time. Her preferred plan upon discharge is to return home with HH and PT services. Edgar states he will be her transportation home. CM team will continue follow and coordinate care during this hospital stay. 13:00 Door closed. Noise minimized. Lights dimmed. Warm blanket given. ko1 14:44 Awaiting: room is not clean on 2nd floor, cost accounting manager aware. ko1 14:44 No provider procedures requiring assistance completed. Patient admitted, IV remains in ko1 place. Administered Medications: 08:37 Drug: Diltiazem IVP 10 mg IVP once; Over 2 minutes Route: IVP; Site: left antecubital; ko1 08:52 Follow up: Response: No adverse reaction; RASS: Alert and Calm (0) ko1 09:42 Drug: Rocephin IV 1 grams IV at calculated rate once; Given slow IV push per pharmacy ko1 instructions Route: IV; Rate: calculated rate; Site: left antecubital; 09:57 Follow up: Response: No adverse reaction; IV Status: Completed infusion; IV Intake: [id number] Medication: 08:17 VIS not applicable for this client. mb9 Intake: 09:57 IV: 10ml; Total: 10ml. ko1 Outcome: 10:59 Decision to Hospitalize by Provider. ec2 12:00 Admitted to ER Hold. Please see [facility] for further documentation. ko1 12:00 Condition: stable 12:00 Instructed on the need for admit, 15:27 Patient left the ED. ko1 Signatures: Dispatcher [employer] Win Abdi em1 Val Henry RN RN ko1 Anne Garcia RN RN mb9 Eduardo Donnelly MD MD ec2 Mary Justice RN RN ane Corrections: (The following items were deleted from the chart) 09:19 08:10 Chief complaint: EMS states: called for patient having diarrhea, heart ko1 rate was noted to be 170's and afib rvr, she has peritoneal dialysis, last dialysis was Wednesday night and 1.3L was removed. ko1 08:15 PMHx: Kidney disease; ko1 ko1 08:15 PSHx: peritoneal dialysis access; ko1 ko1 09: 08:43 : Parent/caregiver report the patient having peritoneal dialysis ko1 ko1
--- NOTE | 2024-08-25 11:50 | P.HP ---
Patient History Date of Service: 08/25/24 Reason for admission: Afib with RVR History of Present Illness: Alberta Brown is an 88 year old female with Pmhx HTN, anxiety, bile duct cancer with stent, Ascites (frequent paracentesis) who presented to the ED d/t Altered mental status. Her is at the bedside and reports she had her first chemotherapy on Wednesday which she did not tolerate well. She started having diarrhea on the way home and complained of abdominal pain. She has a history of ascites requiring frequent paracentesis. Paracentesis was performed in the ED and fluid was sent for evaluation. While in the ED, she was found to be in new onset Atrial fibrilation with HR 137 on EKG. Heart rate decreased with to cardizem. Laboratory evaluation showing Na 121, T BIli 1.1, AST 44, Alk phos 131, H/H 9.9/29.4. Chest x-ray reports "FINDINGS: Elevation of the right hemidiaphragm again seen. The lungs are diffusely emphysematous but grossly clear. No pneumothorax or sizable effusion. The heart is normal in size. Lobulated calcific density adjacent to the right humeral neck, stable. IMPRESSION: No acute intrathoracic abnormalities." CT brain without contrast reports "FINDINGS: No evidence of hydrocephalus, intracranial hemorrhage, or extra-axial fluid collection. The brain is normal in morphology. The calvarium is intact. The visualized paranasal sinuses and mastoid air cells are essentially clear. IMPRESSION: No evidence of acute intracranial abnormality." CT abdomen pelvis without contrast reports "IMPRESSION: Moderate free ascites. Subjective wall thickening throughout the stomach, most of the colon, and segments of central abdominal small bowel, which may relate to ongoing portal hypertension or fluid overload. Diffuse body wall edema, suggesting fluid overload as well. Small layering bilateral pleural effusions. Otherwise stable findings as above." Alberta will be admitted to hospitalist service for further treatment of Afib with RVR, Cardiology consulted. Allergies [id number] Reductase Inhibitor Allergy (Verified 08/25/24 16:16) Hives/Rash Home Medications: Aspirin [Adult Low Dose Aspirin EC] 81 mg PO DAILY 08/25/24 Codeine/APAP [Tylenol W/Codeine #3 tab] 1 tab PO TID 08/25/24 Ondansetron [Ondansetron Odt] 8 mg PO Q8H PRN 08/25/24 Prochlorperazine Maleate [Compazine] 1 tab PO Q6H PRN 08/25/24 Spironolactone 50 mg PO DAILY 08/25/24 ursodioL [Ursodiol] 500 mg PO BID 08/25/24 - Past Medical/Surgical History -: Hypertension -: Anxiety -: Bile duct cancer -: Bile duct stent - Social History Smoking Status: Never smoker Alcohol use: Yes CD- Drugs: No Review of Systems General: Weakness Neurological: Weakness Physical Examination - Physical Exam General: Alert, In no apparent distress, Oriented x3, Other (Weak) HEENT: Atraumatic, Normocephalic, PERRLA Neck: Supple, JVD not distended Respiratory: Clear to auscultation bilaterally, Normal air movement Cardiovascular: No edema, Normal pulses, Normal S1 S2, Irregular heart rate/rhythm Capillary refill: <2 Seconds Gastrointestinal: Normal bowel sounds, Soft and benign Musculoskeletal: No clubbing Integumentary: No rashes Neurological: Normal speech, Normal tone, Other (Weak) - Studies Laboratory Data (last 24 hrs) 08/25/24 08/25/24 08/25/24 08:12 08:12 08:12 WBC 5.90 Hgb 9.9 L Hct 29.4 L Plt Count 249 PT 13.2 H INR 1.18 APTT 24.8 Sodium 121 L Potassium 3.8 BUN 12 Creatinine 0.45 L Glucose 74 Total Bilirubin 1.1 H AST 44 H ALT 38 Alkaline Phosphatase 131 H Assessment and Plan - Plan Assessment and Plan New onset Atrial Fibrillation Weakness likely chemotherapy induced -EMS noted A-fib with RVR rate in the 180s -Cardiology consulted -Diltiazem given in the ED -sotalol BID, EKG after third dose -Eliquis -continuous telemetry -ECHO -Physical therapy consulted Small layering bilateral pleural effusions -lasix 10 mg PO x1 HTN Anxiety -Continue home medications Hypervolemic Hyponatremia -NA 121 -IVF -lasix 10 mg PO x1 Anemia suspect chemotherapy induced - H/H 9.9/29.4 -monitor closely, transfuse PRN History of Left kneecap injury -Follow up with orthopedic outpatient -Reports wearing a boot and ADLs with assistance from Transaminitis Elevated Bilirubin Bile duct cancer (stent) Ascites S/P paracentisis Suspect Portal Hypertension -CT abdomen pelvis without contrast reports "IMPRESSION: Moderate free ascites. Subjective wall thickening throughout the stomach, most of the colon, and segments of central abdominal small bowel, which may relate to ongoing portal hypertension or fluid overload. Diffuse body wall edema, suggesting fluid overload as well. Small layering bilateral pleural effusions. Otherwise stable findings as above." -Follow labs -continue home medications -Follow up outpatient Lobulated calcific density adjacent to the right humeral neck -stable -incidental finding on CXR -Follow up outpatient DVT ppx Eliquis Full code LOS 2 days Discharge Plan: Home Plan to discharge in: 48 Hours - Advance Directives Does patient have a Living Will: No Does patient have a Durable POA for Healthcare: No
[2024-08-25] MEDS: APIXABAN 5 MG TABLET PO SCH (11:59)
[2024-08-25] MEDS: SOTALOL HCL 80 MG TAB PO ONE (12:03)
[2024-08-25 12:17] LABS: Appearance TURBID (CLEAR); Body Fluid Source PERITONEAL; Color of fluid Yellow (COLORLESS); Tube # SINGLE
[2024-08-25 12:18] LABS: Body Fluid WBC 4461 /mm^3
[2024-08-25 12:32] LABS: Body Fluid Lymphocytes 23 %; Fluid Total Cells Count 100
[2024-08-25] MEDS ORDERED: APIXABAN 5 MG TABLET ONE (15:15)
[2024-08-25] MEDS ORDERED: SOTALOL HCL 80 MG TAB ONE (15:15)
[2024-08-25] MEDS ORDERED: PROCHLORPERAZINE 5 MG TAB PO PRN (16:35)
[2024-08-25] MEDS ORDERED: ONDANSETRON 4 MG (ODT) TAB PO PRN (16:55)
[2024-08-25 17:19] VITALS: O2SAT 99
[2024-08-25] MEDS: SOTALOL HCL 80 MG TAB PO SCH (17:48)
[2024-08-25 18:06] VITALS: BMI 21.4
[2024-08-25] MEDS: NA CHLORIDE 0.9% 1,000 ML IV SCH (20:00)
[2024-08-25] MEDS: FUROSEMIDE 20 MG TABLET PO ONE (21:30)
[2024-08-26] MEDS: MELATONIN 5 MG TABLET PO PRN (01:58)
[2024-08-26 06:38] LABS: Absolute Eosinophils 0.2 K/uL (0-0.5); Absolute Lymphocytes (CBC) 0.4 K/uL (0.7-4.9); Absolute Monocytes 0.3 K/uL (0.1-1.3); Absolute Neutrophil 4.2 K/uL (1.8-8.0); Basophils % 0.4 % (0-1.3); Eosinophils % 3.6 % (0-4.4); Hematocrit 27.8 % (36.0-45.0); Hemoglobin 9.4 g/dL (12.0-15.0); Lymphocytes % 7.4 % (15.3-44.8); MCH 28.2 pg (27.0-35.0); MCHC 33.9 g/dL (32.0-36.0); MCV 83.1 fL (80-100); MPV 8.6 fL (7.6-11.3); Monocytes % 6.5 % (3.3-12.3); Neutrophils % 82.1 % (41.7-73.7); Nucleated Red Blood Cells % 0.1 % (0-0); Platelets 245 thou/uL (152-406); RBC Red Blood Cell Count 3.34 M/uL (3.86-4.86); Red Cell Distribution Width 16.8 % (12.1-15.2)
[2024-08-26 06:48] LABS: Albumin/Globulin Ratio 0.6 (1.1-1.8); Anion Gap 9.5 mEq/L (5.0-15.0); Bilirubin Total 0.6 mg/dL (0.2-1.0); Globulin 3.4 g/dL (2.3-3.5); Magnesium 1.6 mg/dL (1.6-2.4); Phosphorus 2.8 mg/dL (2.5-4.9); Potassium 3.5 mEq/L (3.5-5.1); Protein, Total 5.4 g/dL (6.4-8.2)
[2024-08-26] MEDS: ASPIRIN EC 81 MG TAB PO SCH (08:27)
[2024-08-26] MEDS: SPIRONOLACTONE 25 MG TABLET PO SCH (08:27)
[2024-08-26] MEDS ORDERED: ENOXAPARIN 40 MG/0.4 ML SQ SCH (09:00)
--- NOTE | 2024-08-26 10:29 | P.PN ---
Date of Service: 08/26/24 Subjective Sleeping but awakens easily No new complaints rhythm in and out of Afib EKG today ROS 10 point ROS as noted above, otherwise negative Physical Exam General: Alert and Oriented x3, Other (Weak) HEENT: Atraumatic, Normocephalic, PERRLA Neck: Supple, JVD not distended Respiratory: Clear to auscultation bilaterally, Normal air movement, on Room air Cardiovascular: No edema, Normal pulses, Normal S1 S2, Irregular heart rate/rhythm, HR 96 Capillary refill: <2 Seconds Gastrointestinal: Normal bowel sounds, Soft and benign on palpation Musculoskeletal: No clubbing Integumentary: No rashes Neurological: Normal speech, Normal tone, Other (Weak) Vitals Reviewed Problem list New onset Atrial Fibrillation Weakness likely chemotherapy induced Small layering bilateral pleural effusions HTN Anxiety Hypervolemic Hyponatremia Anemia suspect chemotherapy induced History of Left kneecap injury Transaminitis Elevated Bilirubin Bile duct cancer (stent) Ascites S/P paracentisis Suspect Portal Hypertension Lobulated calcific density adjacent to the right humeral neck Assessment and Plan New onset Atrial Fibrillation Weakness likely chemotherapy induced -EMS noted A-fib with RVR rate in the 180s -Cardiology consulted -Diltiazem given in the ED -sotalol BID, EKG after third dose -Eliquis -continuous telemetry -ECHO-results pending -Physical therapy consulted Small layering bilateral pleural effusions -lasix 10 mg PO x1 -Clear breath sounds HTN Anxiety -Continue home medications Hypervolemic Hyponatremia -NA 131 -IVF -lasix 10 mg PO x1 Anemia suspect chemotherapy induced - H/H 9.4/27.8 -monitor closely, transfuse PRN History of Left kneecap injury -Follow up with orthopedic outpatient -Reports wearing a boot and ADLs with assistance from Transaminitis Elevated Bilirubin Bile duct cancer (stent) Ascites S/P paracentisis Suspect Portal Hypertension -CT abdomen pelvis without contrast reports "IMPRESSION: Moderate free ascites. Subjective wall thickening throughout the stomach, most of the colon, and segments of central abdominal small bowel, which may relate to ongoing portal hypertension or fluid overload. Diffuse body wall edema, suggesting fluid overload as well. Small layering bilateral pleural effusions. Otherwise stable findings as above." -Follow labs -continue home medications -Follow up outpatient Lobulated calcific density adjacent to the right humeral neck -stable -incidental finding on CXR -Follow up outpatient DVT ppx Eliquis Full code LOS 2 days
[2024-08-26] MEDS: ACETAMINOPHEN 325 MG TABLET PO PRN (11:04)
[2024-08-27 05:46] LABS: Absolute Basophils 0.1 K/uL (0-0.5); Absolute Eosinophils 0.1 K/uL (0-0.5); Absolute Lymphocytes (CBC) 0.5 K/uL (0.7-4.9); Absolute Monocytes 0.7 K/uL (0.1-1.3); Absolute Neutrophil 3.7 K/uL (1.8-8.0); Basophils % 1.3 % (0-1.3); Eosinophils % 1.4 % (0-4.4); Hematocrit 31.9 % (36.0-45.0); Hemoglobin 10.7 g/dL (12.0-15.0); Lymphocytes % 10.6 % (15.3-44.8); MCH 28.1 pg (27.0-35.0); MCHC 33.4 g/dL (32.0-36.0); MPV 8.4 fL (7.6-11.3); Monocytes % 14.3 % (3.3-12.3); Neutrophils % 72.4 % (41.7-73.7); Nucleated Red Blood Cells % 0.2 % (0-0); Platelets 220 thou/uL (152-406); Red Cell Distribution Width 16.9 % (12.1-15.2)
[2024-08-27 05:59] LABS: Albumin/Globulin Ratio 0.6 (1.1-1.8); Bilirubin Total 0.6 mg/dL (0.2-1.0); Globulin 3.5 g/dL (2.3-3.5); Magnesium 1.6 mg/dL (1.6-2.4); Protein, Total 5.5 g/dL (6.4-8.2)
[2024-08-27] MEDS: NA CHLORIDE 0.9% 250 ML ONE (10:49)
[2024-08-27] MEDS: MAGNESIUM SULFATE 1 gm IVPB 1 GM/100 ML BAG IV ONE (10:58)
[2024-08-27 13:53] VITALS: BP 117/57; TEMP 97.3
--- NOTE | 2024-08-27 15:43 | P.DS ---
Admission Date: 08/25/24 Discharge Date: 08/27/24 Disposition: ROUTINE DISCHARGE Discharge Condition: GOOD Reason for Admission: Afib with RVR Brief History of Present Illness: Diagnosis New onset Atrial Fibrillation Weakness likely chemotherapy induced Small layering bilateral pleural effusions HTN Anxiety Hypervolemic Hyponatremia Anemia suspect chemotherapy induced History of Left kneecap injury Transaminitis Elevated Bilirubin Bile duct cancer (stent) Ascites S/P paracentisis Suspect Portal Hypertension Lobulated calcific density adjacent to the right humeral neck HPI 08/25/24 Alberta Brown is an 88 year old female with Pmhx HTN, anxiety, bile duct cancer with stent, Ascites (frequent paracentesis) who presented to the ED d/t Altered mental status. Her is at the bedside and reports she had her first chemotherapy on Wednesday which she did not tolerate well. She started having diarrhea on the way home and complained of abdominal pain. She has a history of ascites requiring frequent paracentesis. Paracentesis was performed in the ED and fluid was sent for evaluation. While in the ED, she was found to be in new onset Atrial fibrilation with HR 137 on EKG. Heart rate decreased with to cardizem. Laboratory evaluation showing Na 121, T BIli 1.1, AST 44, Alk phos 131, H/H 9.9/29.4. Chest x-ray reports "FINDINGS: Elevation of the right hemidiaphragm again seen. The lungs are diffusely emphysematous but grossly clear. No pneumothorax or sizable effusion. The heart is normal in size. Lobulated calcific density adjacent to the right humeral neck, stable. IMPRESSION: No acute intrathoracic abnormalities." CT brain without contrast reports "FINDINGS: No evidence of hydrocephalus, intracranial hemorrhage, or extra-axial fluid collection. The brain is normal in morphology. The calvarium is intact. The visualized paranasal sinuses and mastoid air cells are essentially clear. IMPRESSION: No evidence of acute intracranial abnormality." CT abdomen pelvis without contrast reports "IMPRESSION: Moderate free ascites. Subjective wall thickening throughout the stomach, most of the colon, and segments of central abdominal small bowel, which may relate to ongoing portal hypertension or fluid overload. Diffuse body wall edema, suggesting fluid overload as well. Small layering bilateral pleural effusions. Otherwise stable findings as above." Alberta will be admitted to hospitalist service for further treatment of Afib with RVR, Cardiology consulted. Hospital Course: Alberta Brown is a pleasant 88 year old female with a past medical history significant for HTN, anxiety, bile duct cancer with stent, Ascites (frequent paracentesis) who was admitted to the [facility] on 08/25/24 for new onset Afib. Alberta presented to the ED d/t altered mental status. CT head is negative for acute findings. On evaluation, she was awake, alert, and oriented x3 but reports feeling very weak. at the bedside reported she had just finished her first chemotherapy treatment which she did not tolerated well. Laboratory evaluation showing hypervolemic hyponatermia, anemia, transaminitis, and elevated bilirubin. CT abd/pelvis revealed moderate free ascites, portal hypertenstion vs fluid volume overload. Paracentesis performed in the ED with 50 ml out, fluid sent to the lab. This morning, blood cultures NGTD, Sodium WNL, and H/H stable. Sotalol and eliquis were started on admission and has been tolerated well. Her heart rhythm has converted to NSR this morning (08/27), Qt/QTc 398/423. she is tolerating PO diet, Guillen catheter has been removed and she is able to urinate without difficulty. On 08/27/24, Alberta Brown was seen on morning rounds and deemed medically stable for discharge. Alberta Brown was discharged with instructions to schedule follow-up appointments with PCP and Dr. Avelar. lAberta was provided prescriptions for Eliquis and sotalol. Physical Exam General: AAO x3, Other (Weak) HEENT: Atraumatic, Normocephalic, PERRLA Neck: Supple, JVD not distended Respiratory: Clear to auscultation bilaterally, symmetrical chest wall movement, on Room air Cardiovascular: No edema, Normal pulses, Normal S1 S2, normal sinus rhythm Capillary refill: <2 Seconds Gastrointestinal: Normal bowel sounds, Soft and benign on palpation, bowel sounds present, ND/NT Musculoskeletal: No clubbing Integumentary: No rashes Neurological: Normal speech, Normal tone, Other (Weak) Vital Signs/Physical Exam: Temp Pulse Resp BP Pulse Ox 97.3 F 65 12 117/57 L 95 08/27/24 12:00 08/27/24 12:00 08/27/24 12:00 08/27/24 12:00 08/27/24 12:00 Laboratory Data at Discharge: WBC 5.10 thou/uL (4.3-10.9) 08/27/24 05:29 Hgb 10.7 g/dL (12.0-15.0) L D 08/27/24 05:29 Hct 31.9 % (36.0-45.0) L 08/27/24 05:29 Plt Count 220 thou/uL (152-406) 08/27/24 05:29 PT 13.2 SECONDS (9.4-12.5) H 08/25/24 08:12 INR 1.18 08/25/24 08:12 APTT 24.8 SECONDS (24.3-36.9) 08/25/24 08:12 Sodium 134 mEq/L (136-145) L 08/27/24 05:29 Potassium 4.0 mEq/L (3.5-5.1) D 08/27/24 05:29 BUN 14 mg/dL (7-18) 08/27/24 05:29 Creatinine 0.42 mg/dL (0.55-1.02) L 08/27/24 05:29 Glucose 101 mg/dL (74-106) 08/27/24 05:29 Phosphorus 3.0 mg/dL (2.5-4.9) 08/27/24 05:29 Magnesium 1.6 mg/dL (1.6-2.4) 08/27/24 05:29 Total Bilirubin 0.6 mg/dL (0.2-1.0) 08/27/24 05:29 AST 32 U/L (15-37) 08/27/24 05:29 ALT 34 U/L (13-56) 08/27/24 05:29 Alkaline Phosphatase 135 U/L (45-117) H 08/27/24 05:29 Home Medications: Aspirin [Adult Low Dose Aspirin EC] 81 mg PO DAILY 08/25/24 Codeine/APAP [Tylenol #3*] 1 tab PO TID 08/25/24 Ondansetron [Ondansetron Odt] 8 mg PO Q8H PRN 08/25/24 Prochlorperazine Maleate [Compazine] 1 tab PO Q6H PRN 08/25/24 Spironolactone 50 mg PO DAILY 08/25/24 ursodioL [Ursodiol] 500 mg PO BID 08/25/24 Apixaban [Eliquis] 5 mg PO BID 30 Days #60 tab 08/27/24 Sotalol HCl [Betapace*] 80 mg PO BID 6AM 6PM 30 Days #60 tab 08/27/24 New Medications: Sotalol HCl [Betapace*] 80 mg PO BID 6AM 6PM 30 Days #60 tab Apixaban [Eliquis] 5 mg PO BID 30 Days #60 tab Physician Discharge Instructions: 1. Please call and schedule a follow-up appointment with your PCP in 3-5 days - Please follow-up with your PCP for medication refills/adjustments 2. Please call and schedule a follow-up appointment with Cardiology, Dr. Avelar in 3-5 days -She has just started Sotalol and will need close follow up 3. Continue heart healthy diet 4. activity restrictions, call precautions 5. Return to the ED if symptoms worsen New medications Sotalol 80 mg twice daily Eliquis 5 mg twice daily Continue all home medications as prescribed Diet: AHA Activity: Fall precautions Followup: Hillary Kilgore MD [Primary Care Provider] - Jordin Avelar MD [ACTIVE - CAN ADMIT] -
--- NOTE | 2024-08-28 07:20 | ECHO ---
HEIGHT: 5 ft 3 in WEIGHT: 121 lb 0 oz DATE OF STUDY: 08/25/[address]: Christa Jimenez NP 2-DIMENSIONAL: YES M.MODE: YES DOPPLER: YES COLOR FLOW: YES TDS: PORTABLE: YES DEFINITY: BUBBLE STUDY: DIAGNOSIS: NEW ONSET ATRIAL FIBRILLATION CARDIAC HISTORY: CATHERIZATION: SURGERY: PROSTHETIC VALVE: PACEMAKER: MEASUREMENTS (cm) DIASTOLIC (NORMALS) SYSTOLIC (NORMALS) IVSd 0.8 (0.6-1.2) LA Diam 3.8 (1.9-4.0) LVEF 55-60% LVIDd 3.2 (3.5-5.7) LVIDs 2.2 (2.0-3.5) %FS 32% LVPWd 1.8 (0.6-1.2) Ao Diam 2.4 (2.0-3.7) 2 DIMENSIONAL ASSESSMENT: RIGHT ATRIUM: NORMAL LEFT ATRIUM: ENLARGED RIGHT VENTRICLE: NORMAL LEFT VENTRICLE: NORMAL TRICUSPID VALVE: MILD TRICUSPID REGURGITATION MITRAL VALVE: MILD MITRAL REGURGITATION PULMONIC VALVE: NORMAL AORTIC VALVE: MODERATE AORTIC INSUFFICIENCY PERICARDIAL EFFUSION: NONE AORTIC ROOT: NORMAL LEFT VENTRICULAR WALL MOTION: NORMAL DOPPLER/COLOR FLOW: SEE BELOW COMMENTS: 1. NORMAL LEFT VENTRICULAR EJECTION FRACTION 55-60% WITH NORMAL WALL MOTION 2. ATRIAL FIBRILLATION 3. MILD MITRAL REGURGITATION 4. LEFT ATRIAL ENLARGEMENT 5. MILD TRICUSPID REGURGITATION 6. MODERATE AORTIC INSUFFICIENCY TECHNOLOGIST: MAURICE REILLY
--- NOTE | 2024-08-28 11:54 | EKG ---
Test Date: 2024-08-27 Test Time: 13:04:29 Ladler: HYACINTH MEASUREMENT RESULTS: Intervals: Rate: 68 MS: 176 QRSD: 70 QT: 398 QTc: 423 [place]ett: P: 67 MS: 176 QRS: 109 T: 58 INTERPRETIVE STATEMENTS: Normal sinus rhythm Possible Right ventricular hypertrophy Abnormal ECG Compared to ECG 08/27/2024 13:02:43 Atrial premature complex(es) no longer present Electronically Signed On 08-28-24 11:51:56 CDT by Hector Davila
--- NOTE | 2024-08-28 11:54 | EKG ---
Test Date: 2024-08-27 Test Time: 13:02:43 Mechanical Engineering Draftsperson: HYACINTH MEASUREMENT RESULTS: Intervals: Rate: 68 IN: 176 QRSD: 70 QT: 396 QTc: 421 Bouse: P: 62 IN: 176 QRS: 108 T: 50 INTERPRETIVE STATEMENTS: Sinus rhythm with premature supraventricular complexes Possible Right ventricular hypertrophy Abnormal ECG Compared to ECG 08/25/2024 08:10:29 Atrial premature complex(es) now present Atrial fibrillation no longer present Myocardial infarct finding no longer present Electronically Signed On 08-28-24 11:51:58 CDT by Hector Davila
--- NOTE | 2024-08-28 11:57 | EKG ---
Test Date: 2024-08-26 Test Time: 17:53:27 Web Marketing Analyst: MARCUS MEASUREMENT RESULTS: Intervals: Rate: 102 AL: QRSD: 74 QT: 336 QTc: 437 Purcell: P: AL: QRS: 116 T: 43 INTERPRETIVE STATEMENTS: Atrial fibrillation with rapid ventricular response with premature ventricular or aberrantly conducted complexes Low voltage QRS Lateral infarct, age undetermined Abnormal ECG Compared to ECG 08/25/2024 08:10:29 Ventricular premature complex(es) now present Myocardial infarct finding still present Electronically Signed On 08-28-24 11:53:08 CDT by Hector Davila
--- NOTE | 2024-08-28 12:02 | EKG ---
Test Date: 2024-08-25 Test Time: 08:10:29 Blanket Inspector: MB MEASUREMENT RESULTS: Intervals: Rate: 137 CA: QRSD: 78 QT: 290 QTc: 437 [place]: P: CA: QRS: 102 T: 93 INTERPRETIVE STATEMENTS: Atrial fibrillation Low voltage QRS Septal infarct, age undetermined Abnormal ECG Compared to ECG 08/01/2024 15:50:05 Low QRS voltage now present Myocardial infarct finding now present Sinus rhythm no longer present Atrial premature complex(es) no longer present Electronically Signed On 08-28-24 11:56:52 CDT by Hector Davila
[2024-08-30 18:57] LABS: GLUCOSE, PERITONEAL FLUID 74 mg/dL; LD, PERITONEAL FLUID 308 U/L (<63); TOTAL PROTEIN,PERITONEAL FLUID <3.0 g/dL
== END 2024-08-27 18:03 | disposition home or self-care (01) | DRG 309 ==
LOC: ER 08:03 → ERHOLD 11:38 → 2ND 15:01
PROVIDERS: ADMIT Internal Medicine; ATTEND Internal Medicine
PROC: 0T9B70Z Drainage of Bladder with Drainage Device, Via Natural or Artificial Opening (ICD-10-PCS; principal; 2024-08-25)
PROC: 0W9G3ZX Drainage of Peritoneal Cavity, Percutaneous Approach, Diagnostic (ICD-10-PCS; 2024-08-25)
DX: I48.19 Other persistent atrial fibrillation (principal); C24.0 Malignant neoplasm of extrahepatic bile duct; E87.1 Hypo-osmolality and hyponatremia; R18.8 Other ascites; J91.8 Pleural effusion in other conditions classified elsewhere; K76.6 Portal hypertension; D64.81 Anemia due to antineoplastic chemotherapy; I10 Essential (primary) hypertension; F41.9 Anxiety disorder, unspecified; E87.70 Fluid overload, unspecified; R53.1 Weakness; R74.01 Elevation of levels of liver transaminase levels; T45.1X5A Adverse effect of antineoplastic and immunosuppressive drugs, initial encounter; Z79.82 Long term (current) use of aspirin; Z79.899 Other long term (current) drug therapy
CPT/HCPCS: 36415; 51702; 70450; 71045; 74176; 80053; 81003; 82042; 82140; 82945; 83605; 83615; 83735; 84100; 84157; 85025; 85610; 85730; 87040; 89050; 93005; 93306; 96374; 96375; 97110; 97161; 97530; 99285; J0696; J3475; J7030; J7050; Q0164

== ENCOUNTER 2024-09-07 23:31 | Emergency (ER) | payer OTHER ==
[2024-09-07] MEDS ORDERED: ONDANSETRON 4 MG/2 ML VIAL ONE (23:57)
[2024-09-07] MEDS ORDERED: LACTULOSE 20 GM/30 ML UCUP ONE (23:57)
[2024-09-08 00:40] LABS: Absolute Basophils 0.1 K/uL (0-0.5); Absolute Eosinophils 0.1 K/uL (0-0.5); Absolute Lymphocytes (CBC) 0.6 K/uL (0.7-4.9); Absolute Monocytes 0.1 K/uL (0.1-1.3); Absolute Neutrophil 7.3 K/uL (1.8-8.0); Basophils % 0.6 % (0-1.3); Eosinophils % 0.7 % (0-4.4); Hematocrit 30.5 % (36.0-45.0); Hemoglobin 10.1 g/dL (12.0-15.0); Lymphocytes % 7.6 % (15.3-44.8); MCH 27.3 pg (27.0-35.0); MCV 82.8 fL (80-100); MPV 7.9 fL (7.6-11.3); Monocytes % 1.2 % (3.3-12.3); Neutrophils % 89.9 % (41.7-73.7); Platelets 488 thou/uL (152-406); RBC Red Blood Cell Count 3.68 M/uL (3.86-4.86)
[2024-09-08 01:03] LABS: Albumin 2.2 g/dL (3.4-5.0); Albumin/Globulin Ratio 0.5 (1.1-1.8); Anion Gap 8.1 mEq/L (5.0-15.0); Globulin 4.1 g/dL (2.3-3.5); Protein, Total 6.3 g/dL (6.4-8.2)
[2024-09-08 01:04] LABS: Potassium 4.1 mEq/L (3.5-5.1)
--- NOTE | 2024-09-08 03:59 | RAD REPORT ---
EXAM: CT Abdomen and Pelvis With Intravenous Contrast CLINICAL HISTORY: Constipation. TECHNIQUE: Axial computed tomography images of the abdomen and pelvis with intravenous contrast. Sagittal and coronal reformatted images were created and reviewed. This CT exam was performed using one or more of the following dose reduction techniques: automated exposure control, adjustment of the mA a nd/or kV according to patient size, and/or use of iterative reconstruction technique. COMPARISON: CT Abdomen Pelvis 08/25/2024. FINDINGS: Lung bases: Minimal left basilar subsegmental atelectasis. Pleural space: Small left pleural effusion decreased from the prior. Right pleural effusion has res olved. Heart: The heart is mildly enlarged. Coronary artery calcification. ABDOMEN: Liver: Atrophic changes of the central aspect of liver. Gallbladder and bile ducts: Biliary stents remain in place. Mild intrahepatic biliary dilatation si milar to the prior. No calcified stones. Pancreas: Unremarkable. No mass. No ductal dilation. Spleen: Unremarkable. No splenomegaly. Adrenals: Unremarkable. No mass. Kidneys and ureters: Normal renal cortical enhancement. No calculi. No hydronephrosis. Subcentimete r renal cortical hypodensities which are too small to characterize. Stomach and bowel: The stomach appears somewhat thickened. Moderate stool. No bowel obstruction. PELVIS: Appendix: The appendix is not definitively visualized. No findings to suggest acute appendicitis. Bladder: The urinary bladder is distended. Reproductive: Unremarkable as visualized. ABDOMEN and PELVIS: Intraperitoneal space: Moderate volume ascites progressed from the prior. No free air. Bones/joints: Multilevel spondylosis. No acute fracture. No dislocation. Soft tissues: Unremarkable. Vasculature: Moderate to severe atherosclerotic disease. No abdominal aortic aneurysm. Lymph nodes: Unremarkable. No enlarged lymph nodes. IMPRESSION: 1. Moderate stool. No bowel obstruction. 2. The stomach appears somewhat thickened. This can be seen in the setting of underlying liver dise ase. If clinical concern for this entity, nonspecific gastritis may be considered. 3. Moderate volume ascites progressed from the prior. 4. Other findings as above. Electronically signed by: Hayden Shi MD 09/08/2024 03:49 AM CDT Due to temporary technical issues with the [employer] reporting system, reports are being yumiko d by the in-house radiologist without review as a courtesy to ensure prompt reporting the interpreting radiologist is fully responsible for the content of the report. Transcribed Date/Time: 09/08/2024 3:59 AM
--- NOTE | 2024-09-08 04:27 | ER ---
Nurse's Notes [facility] Name: Alberta Brown Age: 88 yrs Sex: Female : 1935 Arrival Date: 09/07/2024 Time: 23:31 Bed 9 Private MD: Diagnosis: Slow transit constipation;Malignant ascites;History of cholangiocarcinoma, Presentation: 09/07 23:37 Chief complaint: Spouse and/or significant other states: current bile duct cancer PT lg3 with stent. no BM X2 days with use of Miralax. Coronavirus screen: Client denies travel out of the [place] in the last 14 days. At this time, the client does not indicate any symptoms associated with coronavirus-19. Ebola Screen: No symptoms or risks identified at this time. Initial Sepsis Screen: Does the patient meet any 2 criteria? No. Patient's initial sepsis screen is negative. Does the patient have a suspected source of infection? No. Patient's initial sepsis screen is negative. Risk Assessment: Do you want to hurt yourself or someone else? Patient reports no desire to harm self or others. Onset of symptoms was September 05, 2024. 23:37 Method Of Arrival: Wheelchair lg3 23:37 Acuity: MAYELA 3 lg3 Triage Assessment: 23:40 General: Appears in no apparent distress. uncomfortable, Behavior is calm, cooperative. lg3 Pain: Denies pain. EENT: No deficits noted. No signs and/or symptoms were reported regarding the EENT system. Neuro: No deficits noted. Sosa Agitation-Sedation Scale (RASS): 0 - Alert and Calm Level of Consciousness is awake, alert, Oriented to person, place, time, situation. Cardiovascular: No deficits noted. Denies chest pain, shortness of breath, Capillary refill < 3 seconds Clubbing of nail beds is absent JVD is absent Patient's skin is warm and dry. Respiratory: No deficits noted. Airway is patent Respiratory effort is even, unlabored, Respiratory pattern is regular, symmetrical. GI: Abdomen is flat, non-distended, Reports constipation, Patient currently denies pain. : No deficits noted. No signs and/or symptoms were reported regarding the genitourinary system. Derm: No deficits noted. No signs and/or symptoms reported regarding the dermatologic system. Skin is intact, is healthy with good turgor, Skin is dry, Skin is normal, Skin temperature is warm. Historical: - Allergies: 23:40 Chocolate; lg3 23:40 pravastatin; lg3 - Home Meds: 23:40 Eliquis 5 mg oral tablet 1 tab 2 times per day [Active]; sotalol 80 mg Oral tablet 1 lg3 tab 2 times per day [Active]; ursodiol 500 mg Oral tablet 1 tab 2 times per day [Active]; furosemide 20 mg Oral tablet 1 tab daily [Active]; - PMHx: 23:40 BILE DUCT CANCER (Hypertension); Hypertension; lg3 - PSHx: 23:40 duct stent (Hypertension); Appendectomy; lg3 - Immunization history:: Adult Immunizations up to date. - Infectious Disease History:: Denies. - Social history:: Smoking status: Patient denies any tobacco usage or history of. Patient/guardian denies using alcohol, street drugs. - Family history:: not pertinent. Screenin:45 [facility] [place] ED Fall Risk Assessment (Adult) History of falling in the last 3 months, lg3 including since admission No falls in past 3 months (0 pts) Confusion or Disorientation No (0 pts) Intoxicated or Sedated No (0 pts) Impaired Gait Yes (1 pt) Mobility Assist Device Used Yes (1 pt) Altered Elimination Yes (1 pt) Score/Fall Risk Level 0 - 2 = Low Risk Oriented to surroundings, Maintained a safe environment, Educated pt \T\ family on fall prevention, incl call for assistance when getting out of bed, Assessed \T\ reinforced patient's understanding of fall precautions. Abuse screen: Denies threats or abuse. Denies injuries from another. Nutritional screening: No deficits noted. Tuberculosis screening: No symptoms or risk factors identified. Assessment: 23:45 General: see triage assessment. lg3 23:54 GI: Bowel sounds present X 4 quads. Abd is soft and non tender X 4 quads. lg3 09/08 00:54 Reassessment: Patient and/or family updated on plan of care and expected duration. Pain ha1 level reassessed. Patient is alert, oriented x 3, equal unlabored respirations, skin warm/dry/pink. 01:48 Reassessment: awaiting to go to CT. ha1 02:11 Reassessment: Patient and/or family updated on plan of care and expected duration. Pain ha1 level reassessed. 03:00 Reassessment: Patient and/or family updated on plan of care and expected duration. Pain ha1 level reassessed. Patient is alert, oriented x 3, equal unlabored respirations, skin warm/dry/pink. 04:00 Reassessment: Patient and/or family updated on plan of care and expected duration. Pain ha1 level reassessed. Patient is alert, oriented x 3, equal unlabored respirations, skin warm/dry/pink. 05:00 Reassessment: Patient and/or family updated on plan of care and expected duration. Pain ha1 level reassessed. Patient is alert, oriented x 3, equal unlabored respirations, skin warm/dry/pink. Vital Signs: 09/07 23:37 BP 129 / 61; Pulse 80; Resp 17 S; Temp 98.4(O); Pulse Ox 97% on R/A; Weight 57.15 kg lg3 (R); Height 5 ft. 3 in. (R); Pain 0/10; 09/08 00:54 BP 138 / 72; Pulse 72; Resp 17 S; Pulse Ox 98% on R/A; ha1 02:11 BP 112 / 70; Pulse 79; Resp 17 S; Pulse Ox 96% on R/A; ha1 03:00 BP 127 / 75; Pulse 81; Resp 17 S; Pulse Ox 96% on R/A; ha1 04:00 BP 128 / 78; Pulse 85; Resp 17 S; Pulse Ox 96% on R/A; ha1 04:35 BP 122 / 75; Pulse 81; Resp 17 S; Temp 98.9(O); Pulse Ox 98% on R/A; ha1 09/07 23:37 Body Mass Index 22.32 (57.15 kg, 160.02 cm) lg3 09/07 23:37 Pain Scale: Adult lg3 [place] Coma Score: 04:14 Eye Response: spontaneous(4). Motor Response: obeys commands(6). Verbal Response: sp4 oriented(5). Total: 15. ED Course: 09/07 23:32 Patient arrived in ED. im 23:32 Cali Vargas PA is PHCP. cp 23:32 Bonifacio Richardson MD is Attending Physician. cp 23:40 Triage completed. lg3 23:40 Arm band placed on left wrist. lg3 23:45 Patient has correct armband on for positive identification. lg3 23:54 Client placed on continuous cardiac and pulse oximetry monitoring. NIBP monitoring lg3 applied. Door closed. Noise minimized. Warm blanket given. Pillow given. Family accompanied patient. 23:54 Patient maintains SpO2 saturation greater than 95% on room air. lg3 1018 00:10 Missed attempt(s): 22 gauge in right forearm. vk 00:23 CBC with Diff Sent. vk 00: CMP Sent. vk 00:23 Lipase Sent. vk 00:23 Initial lab(s) drawn, by me, sent to lab. vk 00:26 Inserted saline lock: 20 gauge in right forearm, using aseptic technique. Blood lg3 collected. Flushed with 10 mL NS. 02:47 CT Abd/Pelvis - PO and IV Contrast In Process Unspecified. EDMS 04:00 Cleaned of incontinence. large bowel movement. ha1 05:00 Cleaned of incontinence. ha1 05:00 No provider procedures requiring assistance completed. IV discontinued, intact, ha1 bleeding controlled, No redness/swelling at site. Pressure dressing applied. 05:02 Provided Education on: medication administration . ha1 Administered Medications: 00:27 Drug: Lactulose PO 30 grams 45 ml PO once Volume: 45 ml; Route: PO; lg3 01:00 Follow up: Response: No adverse reaction ha1 00:27 Drug: Ondansetron IVP 4 mg IVP once; over 2 minutes Route: IVP; Site: right forearm; lg3 01:00 Follow up: Response: No adverse reaction ha1 Medication: 00:55 VIS not applicable for this client. ha1 Outcome: 04:27 Discharge ordered by . osvaldo 05:00 Discharged to home via wheelchair, with family, ha1 05:00 Condition: stable 05:00 Discharge instructions given to patient, family, Instructed on discharge instructions, follow up and referral plans. medication usage, Demonstrated understanding of instructions, follow-up care, medications, Prescriptions given X 2, 05:03 Patient left the ED. ha1 Signatures: Dispatcher [employer] EDMS Cali Vargas PA PA cp Able, Lacie, RN RN lg3 Jessie Lagos RN RN ha1 Bonifacio Richardson MD MD sp4 Goncalves, Lucy im Fabian, Sandra vk
--- NOTE | 2024-09-08 04:27 | EDPHYS ---
Physician Documentation [facility] Name: Alberta Brown Age: 88 yrs Sex: Female : 1935 Arrival Date: 09/07/2024 Time: 23:31 Bed 9 Private MD: ED Physician Bonifacio Richardson HPI: 09/07 23:49 This 88 yrs old Female presents to ER via Wheelchair with complaints of Constipation. cp 09/08 04:14 88-year-old female with history of anxiety, constipation, cholangiocarcinoma, elevated sp4 LFTs, high blood pressure, jaundice, ascites, peripheral edema, degenerative joint disease presents with complaint of constipation. Patient is currently undergoing treatment for cholangiocarcinoma at [facility] with [facility] oncologist with Durvalumab, gemcitabine and then Durvalumab maintenance. His medications include Tylenol with codeine, aspirin, buspirone, cholecalciferol, for next phenytoin, mometasone, ondansetron, Pataday, MiraLAX as needed, prochlorperazine, simethicone, ursodiol.. Historical: - Allergies: 09/07 23:40 Chocolate; lg3 23:40 pravastatin; lg3 - Home Meds: 23:40 Eliquis 5 mg oral tablet 1 tab 2 times per day [Active]; sotalol 80 mg Oral tablet 1 lg3 tab 2 times per day [Active]; ursodiol 500 mg Oral tablet 1 tab 2 times per day [Active]; furosemide 20 mg Oral tablet 1 tab daily [Active]; - PMHx: 23:40 BILE DUCT CANCER (Hypertension); Hypertension; lg3 - PSHx: 23:40 duct stent (Hypertension); Appendectomy; lg3 - Immunization history:: Adult Immunizations up to date. - Infectious Disease History:: Denies. - Social history:: Smoking status: Patient denies any tobacco usage or history of. Patient/guardian denies using alcohol, street drugs. - Family history:: not pertinent. ROS: 23:50 Abdomen/GI: Positive for constipation, Negative for vomiting, cp 23:50 Eyes: Negative for injury, pain, redness, and discharge, cp 23:50 Constitutional: Negative for body aches, chills, fever, poor PO intake, 23:50 Cardiovascular: Negative for chest pain, palpitations, 23:50 Respiratory: Negative for cough, shortness of breath, wheezing, 09/08 04:14 All other systems are negative, sp4 Exam: 04:14 Constitutional: This is a well developed, well nourished patient who is awake, alert, sp4 Positive frail elderly female who with his generalized weakness Head/Face: Normocephalic, atraumatic. Eyes: Pupils equal round and reactive to light, extra-ocular motions intact. Lids and lashes normal. Conjunctiva and sclera are not injected. Cornea within normal limits. Periorbital areas with no swelling, redness, or edema. ENT: Nares patent. No nasal discharge, no septal abnormalities noted. Tympanic membranes are normal and external auditory canals are clear. Oropharynx with no redness, swelling, or masses, exudates, or evidence of obstruction, uvula midline. Mucous membranes moist. Neck: Trachea midline, no thyromegaly or masses palpated, and no cervical lymphadenopathy. Supple, full range of motion without nuchal rigidity, or vertebral point tenderness. Chest/axilla: Normal chest wall appearance and motion. Nontender with no deformity. No lesions are appreciated. Cardiovascular: Regular rate and rhythm with a normal S1 and S2. No gallops, murmurs, or rubs. Normal PMI, no JVD. No pulse deficits. Respiratory: Lungs have equal breath sounds bilaterally, clear to auscultation and percussion. No rales, rhonchi or wheezes noted. No increased work of breathing, no retractions or nasal flaring. Abdomen/GI: Soft, with normal bowel sounds. No distension or tympany. No guarding or rebound. Patient has moderate amount of abdominal ascites Back: No spinal tenderness. No costovertebral tenderness. Female : Normal external genitalia. Rectal exam reveals no sign of fecal impaction. Skin: Warm, dry with normal turgor. Normal color with no rashes, no lesions, and no evidence of cellulitis. MS/ Extremity: Pulses equal, no cyanosis. Neurovascular intact. Full, normal range of motion. Neuro: Awake and alert, GCS 15, oriented to person, place, time, and situation. Cranial nerves II-XII grossly intact. Motor strength 5/5 in all extremities. Sensory grossly intact. Psych: Awake, alert, with orientation to person, place and time. Behavior, mood, and affect are within normal limits Vital Signs: 09/07 23:37 BP 129 / 61; Pulse 80; Resp 17 S; Temp 98.4(O); Pulse Ox 97% on R/A; Weight 57.15 kg lg3 (R); Height 5 ft. 3 in. (R); Pain 0/10; 09/08 00:54 BP 138 / 72; Pulse 72; Resp 17 S; Pulse Ox 98% on R/A; ha1 02:11 BP 112 / 70; Pulse 79; Resp 17 S; Pulse Ox 96% on R/A; ha1 03:00 BP 127 / 75; Pulse 81; Resp 17 S; Pulse Ox 96% on R/A; ha1 04:00 BP 128 / 78; Pulse 85; Resp 17 S; Pulse Ox 96% on R/A; ha1 04:35 BP 122 / 75; Pulse 81; Resp 17 S; Temp 98.9(O); Pulse Ox 98% on R/A; ha1 09/07 23:37 Body Mass Index 22.32 (57.15 kg, 160.02 cm) lg3 09/07 23:37 Pain Scale: Adult lg3 Roderick Coma Score: 04:14 Eye Response: spontaneous(4). Motor Response: obeys commands(6). Verbal Response: sp4 oriented(5). Total: 15. MDM: 09/07 23:46 Medical Screening Exam initiated cp 09/08 04:04 ED course: EXAM: CTAbdomen and Pelvis With Intravenous Contrast CLINICAL HISTORY: sp4 Constipation. TECHNIQUE: Axial computed tomography images of the abdomen and pelvis with intravenous contrast. Sagittal and coronal reformatted images were created and reviewed. This CT exam was performed using one or more of the following dose reduction techniques: automated exposure control, adjustment of the mA and/or kV according to patient size, and/or use of iterative reconstruction technique. COMPARISON: CTAbdomen Pelvis 08/25/2024. FINDINGS: Lung bases: Minimal left basilar subsegmental atelectasis. Pleural space: Small left pleural effusion decreased from the prior. Right pleural effusion has resolved. Heart: The heart is mildly enlarged. Coronary artery calcification. ABDOMEN: Liver: Atrophic changes of the central aspect of liver. Gallbladder and bile ducts: Biliary stents remain in place. Mild intrahepatic biliary dilatation similar to the prior. No calcified stones. Pancreas: Unremarkable. No mass. No ductal dilation. Spleen: Unremarkable. No splenomegaly. Adrenals: Unremarkable. No mass. Kidneys and ureters: Normal renal cortical enhancement. No calculi. No hydronephrosis. Subcentimeter renal cortical hypodensities which are too small to characterize. Stomach and bowel: The stomach appears somewhat thickened. Moderate stool. No bowel obstruction. PELVIS: Appendix: The appendix is not definitively visualized. No findings to suggest acute appendicitis. Bladder: The urinary bladder is distended. Reproductive: Unremarkable as visualized. ABDOMEN and PELVIS: Intraperitoneal space: Moderate volume ascites progressed from the prior. No free air. Bones/joints: Multilevel spondylosis. No acute fracture. No dislocation. Soft tissues: Unremarkable. Vasculature: Moderate to severe atherosclerotic disease. No abdominal aortic aneurysm. Lymph nodes: Unremarkable. No enlarged lymph nodes. IMPRESSION: 1. Moderate stool. No bowel obstruction. 2. The stomach appears somewhat thickened. This can be seen in the setting of underlying liver disease. If clinical concern for this entity, nonspecific gastritis may be considered. 3. Moderate volume ascites progressed from the prior. 4. Other findings as above. Electronically signed by: Hyaden Shi MD . 04:14 Differential diagnosis: cholecystitis, Cholelithiasis, diverticulitis, gastritis, sp4 Hepatitis. Data reviewed: vital signs, nurses notes, old medical records, lab test result(s), radiologic studies, CT scan. Consideration of Admission/Observation Escalation of care including admission/observation considered. ED course: Patient has had significant amount of bowel movement, and reveals no sign of fecal impaction. Patient stable to go home. Will prescribe docusate and lactulose.. 09/07 23:47 Order name: CBC with Diff; Complete Time: : cp 09/08 01:21 Interpretation: Normal except: RBC 3.68; HGB 10.1; HCT 30.5; PLT 488; RDW 19.0; ANA% cp 89.9; LYM% 7.6; MN% 1.2; LYMA 0.6. 09/07 23:47 Order name: CMP; Complete Time: 01: cp 09/07 23:47 Order name: Lipase; Complete Time: 01: cp 09/07 23:47 Order name: CT Abd/Pelvis - PO and IV Contrast cp 09/07 23:47 Order name: IV Saline Lock; Complete Time: 00:27 cp 09/07 23:47 Order name: Labs collected and sent; Complete Time: 00:27 cp Administered Medications: 00:27 Drug: Lactulose PO 30 grams 45 ml PO once Volume: 45 ml; Route: PO; lg3 01:00 Follow up: Response: No adverse reaction ha1 00:27 Drug: Ondansetron IVP 4 mg IVP once; over 2 minutes Route: IVP; Site: right forearm; lg3 01:00 Follow up: Response: No adverse reaction ha1 Disposition: 04:19 Co-signature as Attending Physician, Bonifacio Richardson MD I agree with the assessment sp4 and plan of care. I reviewed the patient's care provided by Advanced Practice Provider \T\ agree w/ the diagnosis \T\ care plan. I personally saw the pt \T\ performed a substantive portion of the visit, incldng all aspects of the (History/Exam/Medical Decision Making). Disposition Summary: 09/08/24 04:27 Discharge Ordered Notes: Location: Home sp4 Problem: new sp4 Symptoms: have improved sp4 Condition: Stable sp4 Diagnosis - Slow transit constipation sp4 - Malignant ascites sp4 - History of cholangiocarcinoma, sp4 Followup: sp4 - With: Private Physician - When: 7 - 10 days - Reason: Recheck today's complaints Discharge Instructions: - Discharge Summary Sheet sp4 - Constipation, Adult sp4 Forms: - Patient Portal Instructions sp4 Prescriptions: - docusate sodium 100 mg Oral capsule - take 1 capsule ORAL route every morning; 60 capsule; Refills: 0, Product sp4 Selection Permitted - Lactulose 10 gram/15 mL Oral solution - take 30 milliliters ORAL route once daily PRN constipation; 300 milliliter; sp4 Refills: 0, Product Selection Permitted Signatures: Dispatcher [employer] EDCali Morrow PA PA cp Able, Lacie, RN RN lg3 Bonifacio Richardson MD MD sp4 Jessie Lgaos RN ha1
[2024-09-08 05:14] VITALS: TEMP 98.4
[2024-09-08 05:24] VITALS: O2SAT 96
[2024-09-08 05:31] VITALS: BP 128/78
== END 2024-09-08 05:03 | disposition home or self-care (01) ==
LOC: ER 23:31
DX: K59.01 Slow transit constipation (principal); R18.0 Malignant ascites; C22.1 Intrahepatic bile duct carcinoma; Z79.01 Long term (current) use of anticoagulants
CPT/HCPCS: 85025; 36415; 83690; 80053; 74177; 96374; 99285; Q9967; J2405

== ENCOUNTER 2024-10-03 02:08 | Emergency (ER) | payer OTHER ==
[2024-10-03 04:10] LABS: Renal Epithelial <5 /HPF (None Seen); Specific Gravity 1.007 (1.005-1.030); Sqamous Epithelial <5 /HPF (None Seen); Urine Bacteria None Seen /HPF (<20); Urine Bilirubin NEGATIVE (Negative); Urine Blood Negative (Negative); Urine Clarity Clear (Clear); Urine Color Light-Yellow (Yellow); Urine Culture Reflex Order NOT NEEDED; Urine Glucose NEGATIVE (Negative); Urine Ketones NEGATIVE (Negative); Urine Micro Reflex YN NO BILL MICROSCOPIC; Urine Mucus Slight /HPF (None Seen); Urine Nitrite NEGATIVE (Negative); Urine Protein NEGATIVE (Negative); Urine RBC <5 /HPF (None Seen); Urine Urobilinogen Normal (Normal); Urine WBC <5 /HPF (<5)
--- NOTE | 2024-10-03 04:58 | RAD REPORT ---
EXAM: Extrem Venous W Compress Zackery US Bilateral Lower Extremity Venous Duplex Doppler HISTORY: edema COMPARISON: None TECHNIQUE: Grayscale, color Doppler, duplex Doppler, spectral Doppler images and analysis with compre ssion and augmentation of right and left lower extremity veins. FINDINGS: Right and Left common femoral, greater saphenous, femoral, deep (profunda) femoral, popliteal, manager security and safety ior tibial veins unremarkable without evidence of clot. IMPRESSION: No sonographic evidence of right or left lower extremity DVT. Electronically signed by: Irineo Krueger MD 10/03/2024 04:51 AM [facility] Due to temporary technical issues with the PACS/Envoy scribe reporting system, reports are being signed by the in-house radiologist without review as a courtesy to ensure prompt reporting the interpreting radiologist is fully responsible for the content of the report. Transcribed Date/Time: 10/03/2024 4:58 AM
[2024-10-03 05:28] LABS: Absolute Basophils 0.1 K/uL (0-0.5); Absolute Eosinophils 0.1 K/uL (0-0.5); Absolute Lymphocytes (CBC) 0.9 K/uL (0.7-4.9); Absolute Monocytes 0.4 K/uL (0.1-1.3); Absolute Neutrophil 8.1 K/uL (1.8-8.0); Basophils % 0.8 % (0-1.3); Eosinophils % 1.1 % (0-4.4); Hematocrit 33.2 % (36.0-45.0); Hemoglobin 10.9 g/dL (12.0-15.0); Lymphocytes % 9.1 % (15.3-44.8); MCHC 32.9 g/dL (32.0-36.0); MPV 7.7 fL (7.6-11.3); Monocytes % 3.7 % (3.3-12.3); Neutrophils % 85.3 % (41.7-73.7); Nucleated Red Blood Cells % 0.1 % (0-0); Platelets 570 thou/uL (152-406); RBC Red Blood Cell Count 4.05 M/uL (3.86-4.86); Red Cell Distribution Width 22.6 % (12.1-15.2)
[2024-10-03 05:42] LABS: Albumin 1.9 g/dL (3.4-5.0); Albumin/Globulin Ratio 0.5 (1.1-1.8); Anion Gap 7.7 mEq/L (5.0-15.0); Bilirubin Direct 0.2 mg/dL (0-0.2); Bilirubin Indirect, Calculated 0.3 mg/dL (0.2-0.8); Bilirubin Total 0.5 mg/dL (0.2-1.0); Globulin 4.2 g/dL (2.3-3.5); Potassium 3.7 mEq/L (3.5-5.1); Protein, Total 6.1 g/dL (6.4-8.2)
--- NOTE | 2024-10-03 05:59 | EDPHYS ---
Physician Documentation [facility] Name: Alberta Brown Age: 88 yrs Sex: Female : 1935 Arrival Date: 10/03/2024 Time: 02:08 Bed 5 Private MD: ED Physician Aurelio Ulloa HPI: 10/03 03:11 This 88 yrs old Female presents to ER via Wheelchair with complaints of Swelling of rt Lower Extremity, Fever. 03:11 Patient had a recent mission to [employer] for reported UTI, lower extremity rt swelling. 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 Patient received a dose of chemotherapy yesterday, subsequently developed diarrhea. Has been given Imodium stop the diarrhea but the patient does have difficulty urinating since then. He is concerned that the patient may have another UTI. Denies other acute complaints at this time, symptoms are moderate in severity, no other aggravating alleviating factors.. Historical: - Allergies: 02:29 Chocolate; jb4 02:29 pravastatin; jb4 - Home Meds: 02:29 furosemide 20 mg Oral tablet 1 tab daily [Active]; Eliquis 2.5 mg oral tablet 1 tab 2 jb4 times per day [Active]; ursodiol 500 mg Oral tablet 1 tab 2 times per day [Active]; - PMHx: 02:29 BILE DUCT CANCER (Hypertension); Hypertension; jb4 - PSHx: 02:29 Appendectomy; duct stent (en); jb4 - Immunization history:: Adult Immunizations up to date. - Infectious Disease History:: Denies. - Social history:: Smoking status: Patient denies any tobacco usage or history of. - Family history:: not pertinent. ROS: 03:11 Constitutional: Negative for fever, chills, and weight loss, Respiratory: Negative for rt shortness of breath, cough, wheezing, and pleuritic chest pain, Skin: Negative for injury, rash, and discoloration, Neuro: Negative for headache, weakness, numbness, tingling, and seizure, 03:11 Cardiovascular: Positive for edema, Negative for chest pain, 03:11 Abdomen/GI: Positive for diarrhea, Negative for abdominal pain, Exam: 03:11 Constitutional: This is a well developed, well nourished patient who is awake, alert, rt and in no acute distress. Head/Face: Normocephalic, atraumatic. Chest/axilla: Normal chest wall appearance and motion. Nontender with no deformity. No lesions are appreciated. Cardiovascular: Regular rate and rhythm with a normal S1 and S2. No gallops, murmurs, or rubs. Normal PMI, no JVD. No pulse deficits. Respiratory: Lungs have equal breath sounds bilaterally, clear to auscultation and percussion. No rales, rhonchi or wheezes noted. No increased work of breathing, no retractions or nasal flaring. Abdomen/GI: Soft, non-tender, with normal bowel sounds. No distension or tympany. No guarding or rebound. No evidence of tenderness throughout. Neuro: Awake and alert, GCS 15, oriented to person, place, time, and situation. Cranial nerves II-XII grossly intact. Motor strength 5/5 in all extremities. Sensory grossly intact. Cerebellar exam normal. Normal gait. 03:11 Musculoskeletal/extremity: 4+ pitting bilateral lower extremity edema, symmetric, no skin erythema. 04:27 ECG was reviewed by the Attending Physician. rt Vital Signs: 02:25 BP 115 / 62; Pulse 68; Resp 16; Temp 97.3(TE); Pulse Ox 95% ; Weight 57.15 kg (R); jb4 Height 5 ft. 3 in. (R); 02:53 BP 146 / 75; Pulse 72; Resp 14; Pulse Ox 96% on R/A; al5 03:00 BP 141 / 74; Pulse 70; Resp 14; Pulse Ox 96% on R/A; al5 03:15 BP 142 / 73; Pulse 72; Resp 15; Pulse Ox 97% on R/A; al5 03:30 BP 139 / 70; Pulse 70; Resp 15; Pulse Ox 96% on R/A; al5 03:45 BP 131 / 70; Pulse 70; Resp 16; Pulse Ox 96% on R/A; al5 04:00 BP 129 / 65; Pulse 68; Resp 16; Pulse Ox 97% on R/A; al5 04:15 BP 138 / 72; Pulse 72; Resp 15; Pulse Ox 97% on R/A; al5 04:30 BP 138 / 73; Pulse 70; Resp 16; Pulse Ox 96% on R/A; al5 04:45 BP 132 / 70; Pulse 69; Resp 15; Pulse Ox 96% on R/A; al5 05:00 BP 132 / 73; Pulse 70; Resp 17; Pulse Ox 98% on R/A; al5 05:15 BP 125 / 68; Pulse 71; Resp 15; Pulse Ox 98% on R/A; al5 05:30 BP 117 / 62; Pulse 68; Resp 16; Pulse Ox 98% on R/A; al5 05:45 BP 128 / 62; Pulse 71; Resp 15; Pulse Ox 98% on R/A; al5 06:00 BP 121 / 63; Pulse 70; Resp 16; Pulse Ox 97% on R/A; al5 02:25 Body Mass Index 22.32 (57.15 kg, 160.02 cm) jb4 MDM: 02:43 Medical Screening Exam initiated rt 06:20 Differential diagnosis: Peripheral edema, DVT, renal failure, CHF. Data reviewed: vital rt signs, nurses notes, lab test result(s), EKG, radiologic studies. Consideration of Admission/Observation Escalation of care including admission/observation considered. Patient with no DVT, unremarkable labs, normal renal function, normal cardiac labs. No indications for admission at this time, patient is stable for outpatient care.. Care significantly affected by the following chronic conditions: Cholangiocarcinoma. Counseling: I had a detailed discussion with the patient and/or guardian regarding the historical points, exam findings, and any diagnostic results supporting the discharge/admit diagnosis, lab results, radiology results, the need for outpatient follow up, to return to the emergency department if symptoms worsen or persist or if there are any questions or concerns that arise at home. 10/03 03:07 Order name: Basic Metabolic Panel; Complete Time: 05:44 rt 10/03 03:07 Order name: CBC with Diff rt 10/03 03:07 Order name: LFT's; Complete Time: 05:44 rt 10/03 03:07 Order name: NT PRO-BNP; Complete Time: 05:44 rt 10/03 03:07 Order name: Troponin HS; Complete Time: 05:44 rt 10/03 03:07 Order name: UAM; Complete Time: 04:43 rt 10/03 03:07 Order name: US Extremity Venous W Compression Zackery rt 10/03 03:07 Order name: EKG; Complete Time: 03:08 rt 10/03 03:07 Order name: Cardiac monitoring; Complete Time: 04:20 rt 10/03 03:07 Order name: EKG - Nurse/Tech; Complete Time: 04:20 rt 10/03 03:07 Order name: IV Saline Lock; Complete Time: :33 rt 10/03 03:07 Order name: Labs collected and sent; Complete Time: :33 rt 10/03 03:07 Order name: O2 Per Protocol; Complete Time: :33 rt 10/03 03:07 Order name: O2 Sat Monitoring; Complete Time: :33 rt EC:27 Rate is 71 beats/min. Rhythm is regular, Normal Sinus Rhythm with No ectopy. QRS [place] rt is Normal. [place] interval is normal. QRS interval is normal. QT interval is normal. No Q waves. No ST changes noted. Interpreted by me. Administered Medications: No medications were administered Disposition Summary: 10/03/24 05:58 Discharge Ordered Notes: Location: Home rt Problem: new rt Symptoms: are unchanged rt Condition: Stable rt Diagnosis - Edema, unspecified rt Followup: rt - With: Private Physician - When: 2 - 3 days - Reason: Discharge Instructions: - Discharge Summary Sheet rt - Peripheral Edema rt Forms: - Medication Reconciliation Form rt - Antibiotic Education rt - Prescription Opioid Use rt - Patient Portal Instructions rt - Leadership Thank You Letter rt Signatures: Dispatcher [employer] Skip Escobedo, BACILIO RN Aurelio Noel MD MD rt Corrections: (The following items were deleted from the chart) 02:31 02:29 Home Meds: sotalol 80 mg Oral tablet 1 tab 2 times per day; shakira jb4
--- NOTE | 2024-10-03 05:59 | ER ---
Nurse's Notes [facility] Name: Alberta Brown Age: 88 yrs Sex: Female : 1935 Arrival Date: 10/03/2024 Time: 02:08 Bed 5 Private MD: Diagnosis: Edema, unspecified Presentation: 10/03 02:25 Chief complaint: Spouse and/or significant other states: She had chemo therapy jb4 yesterday and we got home and she started having diarrhea. I gave her anti diarrheal medications and now she cannot urinate. I am worried she has a UTI, and both legs are swollen and I think she still has an infection in her legs. Coronavirus screen: At this time, the client does not indicate any symptoms associated with coronavirus-19. Ebola Screen: No symptoms or risks identified at this time. Initial Sepsis Screen: Does the patient meet any 2 criteria? No. Patient's initial sepsis screen is negative. Does the patient have a suspected source of infection? No. Patient's initial sepsis screen is negative. Risk Assessment: Do you want to hurt yourself or someone else? Patient reports no desire to harm self or others. Onset of symptoms was September 30, 2024. Transition of care: patient was not received from another setting of care. 02:25 Method Of Arrival: Wheelchair jb4 02:25 Acuity: MAYELA 3 jb4 Triage Assessment: 02:32 General: Appears in no apparent distress. Behavior is calm, cooperative. Pain: al5 Complains of pain in abdomen, right leg and left leg. EENT: No signs and/or symptoms were reported regarding the EENT system. Neuro: Level of Consciousness is awake, alert, obeys commands, Oriented to person, place, time, situation. Cardiovascular: Capillary refill < 3 seconds Patient's skin is warm and dry. Respiratory: Airway is patent Respiratory effort is even, unlabored, Respiratory pattern is regular, symmetrical. GI: Abdomen is round distended, noted to have ascites, Reports stomach distended. had paracentesis done on Wednesday. : No signs and/or symptoms were reported regarding the genitourinary system. Derm: Skin is intact, Skin is pink, warm \T\ dry. normal. Musculoskeletal: Reports swelling in bilateral legs. Historical: - Allergies: 02:29 Chocolate; jb4 02:29 pravastatin; jb4 - Home Meds: 02:29 furosemide 20 mg Oral tablet 1 tab daily [Active]; Eliquis 2.5 mg oral tablet 1 tab 2 jb4 times per day [Active]; ursodiol 500 mg Oral tablet 1 tab 2 times per day [Active]; - PMHx: 02:29 BILE DUCT CANCER (Hypertension); Hypertension; jb4 - PSHx: 02:29 Appendectomy; duct stent (en); jb4 - Immunization history:: Adult Immunizations up to date. - Infectious Disease History:: Denies. - Social history:: Smoking status: Patient denies any tobacco usage or history of. - Family history:: not pertinent. Screenin:32 [facility] ED Fall Risk Assessment (Adult) History of falling in the last 3 months, al5 including since admission No falls in past 3 months (0 pts) Confusion or Disorientation No (0 pts) Intoxicated or Sedated No (0 pts) Impaired Gait Yes (1 pt) Mobility Assist Device Used Yes (1 pt) Altered Elimination No (0 pt) Score/Fall Risk Level 0 - 2 = Low Risk Oriented to surroundings, Maintained a safe environment, Hourly rounding (assess needs \T\ fall precautionary measures) done. Abuse screen: Denies threats or abuse. Denies injuries from another. Nutritional screening: No deficits noted. Tuberculosis screening: No symptoms or risk factors identified. Assessment: 02:32 Reassessment: see triage assessment. al5 04:36 Reassessment: Patient appears in no apparent distress at this time. No changes from al5 previously documented assessment. Patient and/or family updated on plan of care and expected duration. Pain level reassessed. Patient is alert, oriented x 3, equal unlabored respirations, skin warm/dry/pink. 06:34 Reassessment: Patient appears in no apparent distress at this time. Patient and/or al5 family updated on plan of care and expected duration. Pain level reassessed. Patient is alert, oriented x 3, equal unlabored respirations, skin warm/dry/pink. Patient states feeling better. Vital Signs: 02:25 BP 115 / 62; Pulse 68; Resp 16; Temp 97.3(TE); Pulse Ox 95% ; Weight 57.15 kg (R); jb4 Height 5 ft. 3 in. (R); 02:53 BP 146 / 75; Pulse 72; Resp 14; Pulse Ox 96% on R/A; al5 03:00 BP 141 / 74; Pulse 70; Resp 14; Pulse Ox 96% on R/A; al5 03:15 BP 142 / 73; Pulse 72; Resp 15; Pulse Ox 97% on R/A; al5 03:30 BP 139 / 70; Pulse 70; Resp 15; Pulse Ox 96% on R/A; al5 03:45 BP 131 / 70; Pulse 70; Resp 16; Pulse Ox 96% on R/A; al5 04:00 BP 129 / 65; Pulse 68; Resp 16; Pulse Ox 97% on R/A; al5 04:15 BP 138 / 72; Pulse 72; Resp 15; Pulse Ox 97% on R/A; al5 04:30 BP 138 / 73; Pulse 70; Resp 16; Pulse Ox 96% on R/A; al5 04:45 BP 132 / 70; Pulse 69; Resp 15; Pulse Ox 96% on R/A; al5 05:00 BP 132 / 73; Pulse 70; Resp 17; Pulse Ox 98% on R/A; al5 05:15 BP 125 / 68; Pulse 71; Resp 15; Pulse Ox 98% on R/A; al5 05:30 BP 117 / 62; Pulse 68; Resp 16; Pulse Ox 98% on R/A; al5 05:45 BP 128 / 62; Pulse 71; Resp 15; Pulse Ox 98% on R/A; al5 06:00 BP 121 / 63; Pulse 70; Resp 16; Pulse Ox 97% on R/A; al5 02:25 Body Mass Index 22.32 (57.15 kg, 160.02 cm) jb4 ED Course: 02:11 Patient arrived in ED. jj6 02:13 Aurelio Ulloa MD is Attending Physician. rt 02:29 Triage completed. jb4 02:29 Arm band placed on right wrist. jb4 02:32 Patient has correct armband on for positive identification. Bed in low position. Call al5 light in reach. Side rails up X2. Provided Education on: plan of care. 02:32 No provider procedures requiring assistance completed. al5 03:03 Lori Mancini, RN is Primary Nurse. al5 03:33 UAM Sent. al5 03:33 Basic Metabolic Panel Sent. al5 03:33 CBC with Diff Sent. al5 03:33 LFT's Sent. al5 03:33 NT PRO-BNP Sent. al5 03:33 Troponin HS Sent. al5 04:07 US Extremity Venous W Compression Zackery In Process Unspecified. EDMS 06:34 IV discontinued, intact, bleeding controlled, No redness/swelling at site. Pressure al5 dressing applied. Administered Medications: No medications were administered Medication: 02:32 VIS not applicable for this client. al5 Outcome: 05:58 Discharge ordered by MD. rt 06:35 Discharged to home via wheelchair, with significant other, al5 06:35 Condition: good 06:35 Discharge instructions given to patient, significant other, Instructed on discharge instructions, follow up and referral plans. Demonstrated understanding of instructions, follow-up care, 06:35 Patient left the ED. al5 Signatures: Dispatcher [employer] EDMS Skip Grewal RN RN jb4 Monika Rosenthal jj6 Aurelio Ulloa MD MD rt Lori Mancini RN RN al5 Corrections: (The following items were deleted from the chart) 02:31 02:29 Home Meds: sotalol 80 mg Oral tablet 1 tab 2 times per day; jb4 jb4
[2024-10-03 06:39] VITALS: TEMP 97.3
[2024-10-03 06:44] LABS: Anisocytosis 2+; Band Neutrophils 1 % (0-1); Blood Morphology Comment NOTED (NOT SEEN); Differential Total Cells Count 100; Eosinophils 1 % (0-3); Lymphocytes 4 % (15-42); Macrocytosis 1+; Microcytosis 1+; Monocytes 7 % (0-10); Platelet Estimate ADEQ; Segmented Neutrophils 87 % (40-80); Toxic Granulation 1+
[2024-10-03 06:55] VITALS: BP 121/63; O2SAT 97
--- NOTE | 2024-10-03 08:50 | EKG ---
Test Date: 2024-10-03 Test Time: 04:18:47 Brim Pouncer Machine Operator: VAN MEASUREMENT RESULTS: Intervals: Rate: 71 MT: 172 QRSD: 62 QT: 382 QTc: 415 [employer]: P: 82 MT: 172 QRS: 6 T: 29 INTERPRETIVE STATEMENTS: Normal sinus rhythm Low voltage QRS Septal infarct, age undetermined Abnormal ECG Compared to ECG 08/27/2024 13:04:29 Low QRS voltage now present Myocardial infarct finding now present Electronically Signed On 10-03-24 08:49:21 FOOD PRODUCTION SUPERVISOR by Hector Davila
== END 2024-10-03 06:35 | disposition home or self-care (01) ==
LOC: ER 02:08
DX: R60.9 Edema, unspecified (principal); R19.7 Diarrhea, unspecified; C22.1 Intrahepatic bile duct carcinoma; I10 Essential (primary) hypertension; Z79.01 Long term (current) use of anticoagulants
CPT/HCPCS: 36415; 80048; 80076; 81001; 83880; 84484; 85025; 93005; 93970; 99283

== ENCOUNTER 2024-10-07 21:26 | Inpatient (IN) | payer OTHER ==
[2024-10-07 23:27] LABS: Absolute Monocytes 0.4 K/uL (0.1-1.3); MCV 82.3 fL (80-100)
[2024-10-07 23:32] LABS: Absolute Eosinophils 0.1 K/uL (0-0.5); Absolute Lymphocytes (CBC) 0.8 K/uL (0.7-4.9); Basophils % 0.7 % (0-1.3); Eosinophils % 1.7 % (0-4.4); Hematocrit 30.1 % (36.0-45.0); Hemoglobin 10.1 g/dL (12.0-15.0); Lymphocytes % 10.4 % (15.3-44.8); MCH 27.5 pg (27.0-35.0); MCHC 33.4 g/dL (32.0-36.0); MPV 7.6 fL (7.6-11.3); Neutrophils % 82.2 % (41.7-73.7); Nucleated Red Blood Cells % 0.2 % (0-0); Platelets 422 thou/uL (152-406); RBC Red Blood Cell Count 3.66 M/uL (3.86-4.86); Red Cell Distribution Width 23.2 % (12.1-15.2)
[2024-10-07 23:39] LABS: Albumin 2.5 g/dL (3.4-5.0); Albumin/Globulin Ratio 0.6 (1.1-1.8); Anion Gap 10.3 mEq/L (5.0-15.0); Bilirubin Total 0.5 mg/dL (0.2-1.0); Globulin 4.2 g/dL (2.3-3.5); Protein, Total 6.7 g/dL (6.4-8.2)
[2024-10-07 23:46] LABS: Potassium 4.3 mEq/L (3.5-5.1)
[2024-10-08 00:01] LABS: PT Prothrombin Time 15.9 SECONDS (9.4-12.5); PTT, Activated Partial Thromb 33.2 SECONDS (24.3-36.9); Protime INR 1.43
[2024-10-08] MEDS ORDERED: NA CHLORIDE 0.9% 250 ML ONE ×2 (00:19→03:35)
[2024-10-08] MEDS ORDERED: FUROSEMIDE 20 MG/ 2ML VIAL ONE (00:19)
--- NOTE | 2024-10-08 01:27 | ER ---
Nurse's Notes [facility] Name: Alberta Brown Age: 88 yrs Sex: Female : 1935 Arrival Date: 10/07/2024 Time: 21:26 Bed 5 Private MD: Diagnosis: Cellulitis of right lower limb;Cellulitis of left lower limb;Edema, unspecified;Cholangiocarcinoma Presentation: 10/07 21:57 Chief complaint: Patient states: c/o swelling to BLE. On chemo for bile duct cancer- me1 last chemo 10/02. s/p paracentesis yesterday where they took off 4 Liters. BLE have +4 pitting edema, redness and warmth. Redness and warmth started this evening. Coronavirus screen: Vaccine status: Patient reports receiving the 2nd dose of the covid vaccine. Ebola Screen: No symptoms or risks identified at this time. Initial Sepsis Screen: Does the patient meet any 2 criteria? HR > 90 bpm. Does the patient have a suspected source of infection?. Risk Assessment: Do you want to hurt yourself or someone else? Patient reports no desire to harm self or others. Onset of symptoms is unknown. 21:57 Method Of Arrival: Wheelchair me1 21:57 Acuity: MAYELA 3 me1 Triage Assessment: 22:00 Musculoskeletal: Swelling present in right leg and left leg. me1 Historical: - Allergies: 22:00 Chocolate; me1 22:00 pravastatin; me1 - PMHx: 22:00 BILE DUCT CANCER (Hypertension); Hypertension; me1 - PSHx: 22:00 Appendectomy; duct stent; me1 - Immunization history:: Adult Immunizations up to date. - Infectious Disease History:: Denies. - Social history:: Smoking status: Patient denies any tobacco usage or history of. Screenin:05 [facility] ED Fall Risk Assessment (Adult) History of falling in the last 3 months, dd2 including since admission No falls in past 3 months (0 pts) Confusion or Disorientation No (0 pts) Intoxicated or Sedated No (0 pts) Impaired Gait Yes (1 pt) Mobility Assist Device Used Yes (1 pt) Altered Elimination No (0 pt) Score/Fall Risk Level 0 - 2 = Low Risk Oriented to surroundings, Maintained a safe environment, Educated pt \\T\\ family on fall prevention, incl call for assistance when getting out of bed, Assessed \\T\\ reinforced patient's understanding of fall precautions, Provided non-skid footwear, Hourly rounding (assess needs \\T\\ fall precautionary measures) done. Abuse screen: Denies threats or abuse. Nutritional screening: No deficits noted. Tuberculosis screening: No symptoms or risk factors identified. Assessment: 23:05 General: Appears uncomfortable, Behavior is calm, cooperative, appropriate for age. dd2 Pain: Complains of pain in right leg and left leg Pain does not radiate. Pain currently is 4 out of 10 on a pain scale. Neuro: Level of Consciousness is awake, alert, obeys commands, Oriented to person, place, time, situation, Appropriate for age. Cardiovascular: Patient's skin is warm and dry. Rhythm is sinus tachycardia. Respiratory: Airway is patent Respiratory effort is even, unlabored, Respiratory pattern is regular, symmetrical, Breath sounds are clear bilaterally. GI: Abdomen is round noted to have ascites, Pt states "paracentesis yesterday" Bowel sounds present X 4 quads. Abdomen is tender to palpation X 4 quads. : No signs and/or symptoms were reported regarding the genitourinary system. EENT: No deficits noted. No signs and/or symptoms were reported regarding the EENT system. Derm: Skin is red, Skin temperature is warm 4+ PE to BLE Reports pain that is 5 out of 10 on a pain scale. Musculoskeletal: Circulation, motion, and sensation intact. Range of motion: intact in all extremities. 10/08 03:03 Reassessment: Patient and/or family updated on plan of care and expected duration. Pain dd2 level reassessed. Patient is alert, oriented x 3, equal unlabored respirations, skin warm/dry/pink. Patient states feeling better. Vital Signs: 10/07 21:57 BP 150 / 86; Pulse 101; Resp 24; Temp 99.7; Pulse Ox 94% ; Weight 65 kg; Height 5 ft. 3 me1 in. ; Pain 6/10; 23:05 BP 140 / 86; Pulse 103; Resp 16; Pulse Ox 97% on R/A; dd2 10/08 00:00 BP 118 / 63; Pulse 99; Resp 16; Temp 99.1(O); Pulse Ox 95% ; dd2 01:00 BP 113 / 69; Pulse 101; Resp 17; Pulse Ox 95% ; dd2 01:18 BP 113 / 69; Pulse 108; Resp 18; sb4 02:00 BP 127 / 64; Pulse 107; Resp 16; Pulse Ox 96% ; dd2 03:05 BP 115 / 56; Pulse 87; Resp 16; Pulse Ox 96% ; dd2 10/07 21:57 Body Mass Index 25.38 (65.00 kg, 160.02 cm) me1 10/07 21:57 Pain Scale: Adult me1 [place] Coma Score: 10/07 23:05 Eye Response: spontaneous(4). Motor Response: obeys commands(6). Verbal Response: dd2 oriented(5). Total: 15. ED Course: 21:30 Patient arrived in ED. mr 21:46 Moira Brown PA-C is PHCP. sb4 21:46 Cali Mcmahan MD is Attending Physician. sb4 21:51 Betzy Mora, BACILIO is Primary Nurse. br2 21:59 Triage completed. me1 22:00 Arm band placed on Patient placed in an exam room. me1 22:16 EKG done, by septic tank service technician. af3 23:05 Patient has correct armband on for positive identification. Bed in low position. Call dd2 light in reach. Side rails up X2. Provided Education on: CALL LIGHT, LABS, RESULT TIMES. Client placed on continuous cardiac and pulse oximetry monitoring. NIBP monitoring applied. school lunch monitor on. Door closed. Noise minimized. Warm blanket given. Pillow given. Verbal reassurance given. 23:05 No provider procedures requiring assistance completed. Patient maintains SpO2 dd2 saturation greater than 95% on room air. 23:49 Blood Culture Adult (2) Sent. dd2 23:49 Lactate w/ 2H reflex if indic. Sent. dd2 23:49 Protime (+inr) Sent. dd2 23:49 Ptt, Activated Sent. dd2 23:55 Inserted saline lock: 22 gauge in left antecubital area, using aseptic technique. Blood dd2 collected. Flushed with 10 mL NS Missed attempt(s): 20 gauge in left antecubital area. 22 gauge in right forearm. Bleeding controlled, band aid applied, catheter tip intact. 10/08 01:01 Extrem Venous W Compression Zackery US In Process Unspecified. EDMS 01:26 Pam Tinoco MD is Hospitalizing Provider. sb4 02:17 Tad Lucia is Hospitalizing Provider. bobby 04:34 Patient admitted, IV remains in place. dd2 Administered Medications: 01:16 Drug: Furosemide IVP 20 mg IVP once; give over 2 minutes Route: IVP; Site: left dd2 antecubital; 01:31 Follow up: Response: No adverse reaction dd2 01:16 Drug: NS 0.9% IV 250 ml IV at bolus once; to be given as a bolus over 30 minutes Route: dd2 IV; Rate: bolus; Site: left antecubital; 01:31 Follow up: Response: No adverse reaction dd2 01:46 Follow up: IV Status: Completed infusion; IV Intake: 250ml dd2 03:38 Drug: Cefepime IVPB 1 grams IVPB at 200 ml/hr once over 30 mins; (mix in NS 100 mL) dd2 Route: IVPB; Rate: 200 ml/hr; Infused Over: 30 mins; Site: left antecubital; 03:53 Follow up: Response: No adverse reaction dd2 04:06 Follow up: IV Status: Completed infusion; IV Intake: 100ml dd2 04:06 Drug: vancoMYCIN IVPB 1 grams IVPB once over 2 hrs Route: IVPB; Infused Over: 2 hrs; dd2 Site: left antecubital; 04:35 Follow up: IV Status: Infusion continued upon admission dd2 Medication: 10/07 23:05 VIS not applicable for this client. dd2 Intake: 10/08 01:46 IV: 250ml; Total: 250ml. dd2 03:03 IV: 250ml; Total: 500ml. dd2 04:06 IV: 100ml; Total: 600ml. dd2 Output: 03:03 Urine: 550ml (Voided); Total: 550ml. dd2 Outcome: 01:27 Decision to Hospitalize by Provider. sb4 04:34 Admitted to Med/surg accompanied by tech, via stretcher, with chart, dd2 04:34 Condition: stable 04:34 Instructed on the need for admit, 04:42 Patient left the ED. dd2 Signatures: Dispatcher [employer] EDCali Cowart MD MD cha Rivera, Mary, Jayden Reg mr Moira Brown, PA-C PA-C sb4 Yvette Santa RN RN me1 Betzy Mora RN RN br2 Iris Islas af3 ALISON ZAMORA RN RN dd2 Corrections: (The following items were deleted from the chart) 10/07 22:00 21:57 Chief complaint: Patient states: c/o swelling to BLE. On chemo for bile duct me1 cancer- last chemo 10/02. s/p paracentesis yesterday where they took off 4 Liters. BLE have +4 pitting edema, redness and warmth me1
--- NOTE | 2024-10-08 01:27 | EDPHYS ---
Physician Documentation [facility] Name: Alberta Brown Age: 88 yrs Sex: Female : 1935 Arrival Date: 10/07/2024 Time: 21:26 Bed 5 Private MD: PAM Physician Cali Mcmahan HPI: 10/07 23:46 This 88 yrs old Female presents to ER via Wheelchair with complaints of Leg Swelling. sb4 23:53 Patient reports pain, redness, and swelling in bilateral legs that started today. She sb4 does have a history of cholangiocarcinoma and is currently on chemotherapy, last treated 5 days ago. States that she did have a paracentesis yesterday. Denies any known fever. Denies any history of cellulitis. Denies any nausea or vomiting. Historical: - Allergies: 22:00 Chocolate; me1 22:00 pravastatin; me1 - PMHx: 22:00 BILE DUCT CANCER (Hypertension); Hypertension; me1 - PSHx: 22:00 Appendectomy; duct stent; me1 - Immunization history:: Adult Immunizations up to date. - Infectious Disease History:: Denies. - Social history:: Smoking status: Patient denies any tobacco usage or history of. ROS: 23:53 Constitutional: Negative for fever, chills, and weight loss, sb4 23:53 Skin: Positive for cellulitis, of the left leg and right leg, 23:53 All other systems are negative, Exam: 23:55 Constitutional: This is a well developed, well nourished patient who is awake, alert, sb4 and in no acute distress. Head/Face: Normocephalic, atraumatic. Eyes: Extra-ocular motions intact. Periorbital areas with no swelling, redness, or edema. ENT: Mucous membranes moist. 23:55 Cardiovascular: Edema: 2+ edema to level of left upper thigh, left lower thigh, left knee, left midcalf, right upper thigh, right lower thigh, right knee and right midcalf, 23:55 Skin: cellulitis, that is moderate, on the right leg and left leg, Vital Signs: 21:57 BP 150 / 86; Pulse 101; Resp 24; Temp 99.7; Pulse Ox 94% ; Weight 65 kg; Height 5 ft. 3 me1 in. ; Pain 6/10; 23:05 BP 140 / 86; Pulse 103; Resp 16; Pulse Ox 97% on R/A; dd2 10/08 00:00 BP 118 / 63; Pulse 99; Resp 16; Temp 99.1(O); Pulse Ox 95% ; dd2 01:00 BP 113 / 69; Pulse 101; Resp 17; Pulse Ox 95% ; dd2 01:18 BP 113 / 69; Pulse 108; Resp 18; sb4 02:00 BP 127 / 64; Pulse 107; Resp 16; Pulse Ox 96% ; dd2 03:05 BP 115 / 56; Pulse 87; Resp 16; Pulse Ox 96% ; dd2 11 21:57 Body Mass Index 25.38 (65.00 kg, 160.02 cm) me1 10/07 21:57 Pain Scale: Adult me1 [place] Coma Score: 10/07 23:05 Eye Response: spontaneous(4). Motor Response: obeys commands(6). Verbal Response: dd2 oriented(5). Total: 15. MDM: 21:46 Medical Screening Exam initiated sb4 10/08 01:26 Data reviewed: vital signs, nurses notes, lab test result(s), EKG, radiologic studies, sb4 and as a result, I will admit patient. Consideration of Admission/Observation Patient was admitted/placed on observation. Counseling: I had a detailed discussion with the patient and/or guardian regarding the historical points, exam findings, and any diagnostic results supporting the discharge/admit diagnosis, lab results, radiology results, the need for outpatient follow up. 10/07 21:55 Order name: Blood Culture Adult (2) 4 10/07 21:55 Order name: CBC with Diff; Complete Time: 23:36 sb4 10/07 21:55 Order name: CMP; Complete Time: 23:47 sb4 10/07 21:55 Order name: Lactate w/ 2H reflex if indic.; Complete Time: 00:12 sb4 10/07 21:55 Order name: Protime (+inr); Complete Time: 00:02 sb4 10/07 21:55 Order name: Ptt, Activated; Complete Time: 00:02 sb4 10/07 23:55 Order name: BNP; Complete Time: 00:14 sb4 10/08 03:21 Order name: Creatine Phosphokinase EDMS 10/08 03:21 Order name: Lactate w/ 2H reflex if indic. EDMS 10/08 03:21 Order name: Liver (Hepatic) Function EDWA 10/08 03:21 Order name: Magnesium EDWA 10/08 03:21 Order name: NT PRO-BNP EDWA 10/08 03:21 Order name: Phosphorus EDWA 10/08 03:21 Order name: Thyroid Stimulating Hormone EDWA 10/08 03:21 Order name: Urinalysis w/ reflexes EDMS 10/08 03:21 Order name: Lipid Profile EDWA 10/08 03:21 Order name: Lipid Profile EDWA 10/08 03:22 Order name: Osmolality, Serum EDMS 10/08 03:22 Order name: Osmolality, Urine EDWA 10/08 03:22 Order name: Urine Sodium, 24 Hr EDWA 10/08 03:23 Order name: Cortisol EDWA 10/08 03:23 Order name: Cortisol Stimulation Profile EDWA 10/08 00:04 Order name: Extrem Venous W Compression Zackery US; Complete Time: 02:19 sb4 10/07 21:55 Order name: Accucheck; Complete Time: 23:48 sb4 10/07 21:55 Order name: Cardiac monitoring; Complete Time: 22:16 sb4 10/07 21:55 Order name: EKG - Nurse/Tech; Complete Time: 22:16 sb4 10/07 21:55 Order name: IV Saline Lock - Large Bore; Complete Time: 23:48 sb4 10/07 21:55 Order name: Labs collected and sent; Complete Time: 23:48 sb4 10/07 21:55 Order name: O2 Per Protocol; Complete Time: 23:48 sb4 10/07 21:55 Order name: O2 Sat Monitoring; Complete Time: 23:49 sb4 10/07 21:55 Order name: Vital Signs; Complete Time: 23:49 sb4 EC/16 22:17 Rate is 107 beats/min. Rhythm is regular, Sinus tachycardia. WA interval is normal at sb4 162 msec. QRS interval is normal at 72 msec. QT interval is normal at 316 msec. No Q waves. T waves are Normal. No ST changes noted. Clinical impression: Sinus tachycardia and No evidence of ischemia. Interpreted by me. Reviewed by me. Administered Medications: 10/08 01:16 Drug: Furosemide IVP 20 mg IVP once; give over 2 minutes Route: IVP; Site: left dd2 antecubital; 01:31 Follow up: Response: No adverse reaction dd2 01:16 Drug: NS 0.9% IV 250 ml IV at bolus once; to be given as a bolus over 30 minutes Route: dd2 IV; Rate: bolus; Site: left antecubital; 01:31 Follow up: Response: No adverse reaction dd2 01:46 Follow up: IV Status: Completed infusion; IV Intake: 250ml dd2 03:38 Drug: Cefepime IVPB 1 grams IVPB at 200 ml/hr once over 30 mins; (mix in NS 100 mL) dd2 Route: IVPB; Rate: 200 ml/hr; Infused Over: 30 mins; Site: left antecubital; 03:53 Follow up: Response: No adverse reaction dd2 04:06 Follow up: IV Status: Completed infusion; IV Intake: 100ml dd2 04:06 Drug: vancoMYCIN IVPB 1 grams IVPB once over 2 hrs Route: IVPB; Infused Over: 2 hrs; dd2 Site: left antecubital; 04:35 Follow up: IV Status: Infusion continued upon admission dd2 Disposition Summary: 10/08/24 01:27 Hospitalization Ordered Notes: Hospitalization Status: Inpatient Admission sb4 Location: Telemetry/MedSurg (Inpatient) sb4 Condition: Fair sb4 Problem: new sb4 Symptoms: are unchanged sb4 Bed/Room Type: Standard sb4 Provider: Tad Lucia(10/08/24 02:17) bobby Room Assignment: [facility](10/08/24 03:37) af3 Diagnosis - Cellulitis of right lower limb sb4 - Cellulitis of left lower limb sb4 - Edema, unspecified sb4 - Cholangiocarcinoma sb4 Forms: - Medication Reconciliation Form sb4 - SBAR form sb4 - Leadership Thank You Letter sb4 Signatures: Dispatcher [employer] EDCali Cowart MD MD cha Brown, Sophia, PA-C PAArsenio sb4 Yvette Santa, BACILIO RN 1 Iris Islas af3 ALISON ZAMORA RN RN dd2 Corrections: (The following items were deleted from the chart) 10/07 21:55 21:55 BLOOD CULTURE*+BA.LAB.BRZ ordered. EDMS EDMS 21:55 21:55 CBC+H.LAB.BRZ ordered. EDMS EDMS 21:55 21:55 COMPREHENSIVE METABOLIC PANEL+C.LAB.BRZ ordered. EDMS EDMS 21: 21:55 LACTATE+C.LAB.BRZ ordered. EDMS EDMS : 21:55 PROTIME (+INR)+COAG.LAB.BRZ ordered. EDMS EDMS : 21:55 PTT, ACTIVATED+COAG.LAB.BRZ ordered. EDMS EDMS 10/08 02:17 01:27 Pam Tinoco sb4 bobby 03:37 01:27 sb4 af3
--- NOTE | 2024-10-08 02:13 | RAD REPORT ---
EXAM: US Duplex Bilateral Lower Extremities Veins CLINICAL HISTORY: The patient is 88 years old and is Female; Pain;Swelling TECHNIQUE: Real-time duplex ultrasound scan of the bilateral lower extremity veins integrating B-mode two-dime nsional vascular structure, Doppler spectral analysis, color flow Doppler imaging and compression. COMPARISON: No relevant prior studies available. FINDINGS: RIGHT DEEP VEINS: Unremarkable. No DVT in the visualized common femoral, femoral, proximal deep femoral, popliteal, posterior tibial, or peroneal veins. The veins demonstrate normal color flow, are normally compressible, with normal phasic flow and/or augmentation response. RIGHT SUPERFICIAL VEINS: Unremarkable. No thrombus in the visualized right great saphenous vein . LEFT DEEP VEINS: Unremarkable. No DVT in the visualized common femoral, femoral, proximal deep femoral, popliteal, posterior tibial, or peroneal veins. The veins demonstrate normal color flow, are normally compressible, with normal phasic flow and/or augmentation response. LEFT SUPERFICIAL VEINS: Unremarkable. No thrombus in the visualized left great saphenous vein. SOFT TISSUES: No acute findings. No popliteal cyst. IMPRESSION: Normal bilateral lower extremity duplex venous ultrasound. Electronically signed by: Shasta Judge MD 10/08/2024 02:08 AM [facility] Due to temporary technical issues with the [employer] reporting system, reports are being sign ed by the in-house radiologist without review as a courtesy to ensure prompt reporting the interpreting rad iologist is fully responsible for the content of the report. Transcribed Date/Time: 10/08/2024 2:12 AM
--- NOTE | 2024-10-08 03:27 | P.HP ---
Certification for Inpatient Patient admitted to: Observation With expected LOS: <2 Midnights Practitioner: I am a practitioner with admitting privileges, knowledge of patient current condition, hospital course, and medical plan of care. 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 The patient was last seen in the ED on 10/03/2024 for similar complaints. The patient states that she completed chemotherapy as well as a paracentesis yesterday. She is not on home oxygen, and has no smoking history. The patient denies shortness of breath, and urinary symptoms. Allergies [id number] Reductase Inhibitor Allergy (Verified 08/25/24 16:16) Hives/Rash Home Medications: Aspirin [Adult Low Dose Aspirin EC] 81 mg PO DAILY 08/25/24 Codeine/APAP [Tylenol #3*] 1 tab PO TID 08/25/24 Ondansetron [Ondansetron Odt] 8 mg PO Q8H PRN 08/25/24 Prochlorperazine Maleate [Compazine] 1 tab PO Q6H PRN 08/25/24 Spironolactone 50 mg PO DAILY 08/25/24 ursodioL [Ursodiol] 500 mg PO BID 08/25/24 Apixaban [Eliquis] 5 mg PO BID 30 Days #60 tab 08/27/24 Sotalol HCl [Betapace*] 80 mg PO BID 6AM 6PM 30 Days #60 tab 08/27/24 - Past Medical/Surgical History Diabetic: No -: Hypertension -: Anxiety -: Bile duct cancer -: Bile duct stent - Social History Smoking Status: Never smoker Alcohol use: No CD- Drugs: No Review of Systems Musculoskeletal: Other (b/l le edema) Physical Examination - Vital Signs Temperature: 99.7 F Blood Pressure: 119/60 Pulse: 99 Respirations: 18 Pulse Ox (%): 100 (room air) - Physical Exam General: Alert, Oriented x3 HEENT: Atraumatic, Normocephalic Neck: JVD not distended Respiratory: Clear to auscultation bilaterally Cardiovascular: No gallops, No rubs, No murmurs, Other (slightly tachycardic, rate of 99-104) Gastrointestinal: Normal bowel sounds, No tenderness, Distended Musculoskeletal: Other (b/l lower extremity edema, right leg erythema from right thigh to right foot) Neurological: Normal strength at 5/5 x4 extr, Sensation intact Urinary: Other (adult diaper) - Studies Laboratory Data (last 24 hrs) 10/07/24 10/07/24 10/07/24 23:39 22:59 22:59 WBC 7.20 Hgb 10.1 L Hct 30.1 L Plt Count 422 H PT 15.9 H INR 1.43 APTT 33.2 Sodium 129 L Potassium 4.3 BUN 13 Creatinine 0.55 Glucose 97 Total Bilirubin 0.5 AST 63 H ALT 34 Alkaline Phosphatase 155 H Assessment and Plan - Problems (Diagnosis) (1) Edema Current Visit: Yes Status: Acute - Plan Edema: Admit to observation Given lasix, IVF, vancomycin, and cefepime in ED blood cultures collected in ED US b/l LE showed no DVT lab work ordered to trend Hyponatremia: Current Na of 129 Serum osm, Urine osm, Urine Na ordered AM cortisol ordered ACTH order for 10/09/23 if needed fluid restriction - Advance Directives Does patient have a Living Will: No Does patient have a Durable POA for Healthcare: No
[2024-10-08] MEDS ORDERED: CEFEPIME 1 GM/VIAL ONE (03:35)
[2024-10-08] MEDS ORDERED: NA CHLORIDE 0.9% 100 ML ONE (03:35)
[2024-10-08] MEDS ORDERED: VANCOMYCIN 1 GM/VIAL ONE (03:35)
[2024-10-08 08:27] LABS: Urine Bilirubin NEGATIVE (Negative); Urine Blood Negative (Negative); Urine Clarity Clear (Clear); Urine Color Light-Yellow (Yellow); Urine Glucose NEGATIVE (Negative); Urine Ketones NEGATIVE (Negative); Urine Microscopic Reflex YN NO UMIC; Urine Nitrite NEGATIVE (Negative); Urine Protein NEGATIVE (Negative); Urine Urobilinogen Normal (Normal)
[2024-10-08] MEDS: COSYNTROPIN 0.25 MG VIAL IV ONE (08:35)
[2024-10-08] MEDS: HEPARIN 5000 UNIT/ML 1 ML VIAL SQ SCH (08:49)
[2024-10-08 09:19] LABS: Albumin/Globulin Ratio 0.6 (1.1-1.8); Bilirubin Direct 0.3 mg/dL (0-0.2); Bilirubin Indirect, Calculated 0.5 mg/dL (0.2-0.8); Bilirubin Total 0.8 mg/dL (0.2-1.0); Globulin 3.4 g/dL (2.3-3.5); Magnesium 1.8 mg/dL (1.6-2.4); Phosphorus 2.4 mg/dL (2.5-4.9); Protein, Total 5.4 g/dL (6.4-8.2); Thyroid Stimulating Hormone 1.73 uIU/mL (0.358-3.740)
[2024-10-08] MEDS: FUROSEMIDE 40 MG/4 ML VIAL IV SCH ×2 (14:50→17:32)
[2024-10-08] MEDS: FEXOFENADINE 180 MG TAB PO SCH (14:50)
--- NOTE | 2024-10-08 16:48 | P.PN ---
Subjective Date of Service: 10/08/24 Chief Complaint: edema Patient reports swelling and heaviness in both legs, worse on the right. No recorded fever. Patient reports good appetite. Abdomen is distended. Patient is currently getting paracentesis once a week at [facility]. According to the spouse, she has refused Pleurx catheter placement previously. Physical Examination - Vital Signs Temperature: 97.8 F Blood Pressure: 127/71 Pulse: 97 Respirations: 20 Pulse Ox (%): 94 - Studies Laboratory Data (last 24 hrs) 10/08/24 10/07/24 10/07/24 08:37 23:39 22:59 WBC Hgb Hct Plt Count PT 15.9 H INR 1.43 APTT 33.2 Sodium 129 L Potassium 4.3 BUN 13 Creatinine 0.55 Glucose 97 Phosphorus 2.4 L Magnesium 1.8 Total Bilirubin 0.8 0.5 AST 41 H 63 H ALT 24 34 Alkaline Phosphatase 113 D 155 H 10/07/24 22:59 WBC 7.20 Hgb 10.1 L Hct 30.1 L Plt Count 422 H PT INR APTT Sodium Potassium BUN Creatinine Glucose Phosphorus Magnesium Total Bilirubin AST ALT Alkaline Phosphatase Microbiology Data (last 24 hrs): 10/07/24 22:59 Blood - Blood Anaerobic Blood Culture - Final Assessment And Plan - Plan Physical examination General: Alert and oriented x3, NAD, HEENT: anicteric sclera, conjunctiva not pale Neck: Supple, no elevated JVD Heart: Heart sounds 1 and 2 normal, regular rhythm, normal rate, no pedal edema Lungs: Clear to auscultation bilaterally, adequate breath sounds bilaterally, no rhonchi or crackles. Abdomen: Soft, mildly distended, nontender, normal bowel sounds. Ascites. Extremities: Bilateral lower extremity swelling, worse on the right, warm to touch, mild erythema. Skin: Mild erythema-right leg. No ulcers Neuro: No focal motor deficit. Normal speech. Psychiatry: Normal mood, no agitation. Diagnosis Hyponatremia Cholangiocarcinoma Ascites Bilateral lower extremity edema Bilateral lower extremity venous stasis dermatitis. Plan: Ascites Bilateral Lower extremity edema Bilateral lower extremity venous stasis dermatitis. Continue empiric antibiotics Keep lower extremity elevated IV Lasix Analgesics as needed. Patient is a candidate for Pleurx catheter placement for periodic peritoneal fluid drainage. 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 Continue Lasix. Monitor renal panel. Cholangiocarcinoma Continue ursodiol. Patient is currently on active immunotherapy. She is working on establishing care with oncologist Dr. King. Chronic anemia Likely cancer related. Monitor CBC. DVT prophylaxis: Heparin SQ. Advanced directive; Full code
[2024-10-08] MEDS: APIXABAN 5 MG TABLET PO SCH (19:33)
[2024-10-08] MEDS: URSODIOL 500 MG PO SCH (19:37)
[2024-10-09 06:40] LABS: Absolute Basophils 0.1 K/uL (0-0.5); Absolute Eosinophils 0.1 K/uL (0-0.5); Absolute Monocytes 0.8 K/uL (0.1-1.3); Absolute Neutrophil 4.6 K/uL (1.8-8.0); Basophils % 1.1 % (0-1.3); Eosinophils % 0.9 % (0-4.4); Hematocrit 27.2 % (36.0-45.0); Hemoglobin 8.8 g/dL (12.0-15.0); Lymphocytes % 15.2 % (15.3-44.8); MCH 26.8 pg (27.0-35.0); MCHC 32.5 g/dL (32.0-36.0); MCV 82.2 fL (80-100); MPV 7.9 fL (7.6-11.3); Monocytes % 12.9 % (3.3-12.3); Neutrophils % 69.9 % (41.7-73.7); Nucleated Red Blood Cells % 0.1 % (0-0); Platelets 316 thou/uL (152-406)
[2024-10-09 07:04] LABS: Anion Gap 8.2 mEq/L (5.0-15.0); Potassium 3.2 mEq/L (3.5-5.1)
[2024-10-09 07:37] LABS: Anisocytosis 2+; Blood Morphology Comment NOTED (NOT SEEN); White Blood Cell Scan OK (OK)
[2024-10-09 07:47] LABS: Platelet Estimate ADEQ
[2024-10-09] MEDS: FEXOFENADINE 180 MG TAB PO SCH (08:38)
[2024-10-09] MEDS: POTASSIUM CL SA 10 MEQ TAB PO ONE (08:38)
--- NOTE | 2024-10-09 16:21 | P.PN ---
Subjective Date of Service: 10/09/24 Chief Complaint: edema Patient noted to have multiple bouts of loose stools. No recorded fever. Patient reports good appetite. Abdomen remain distended. Physical Examination - Vital Signs Temperature: 97.5 F Blood Pressure: 138/76 Pulse: 88 Respirations: 21 Pulse Ox (%): 96 - Studies Microbiology Data (last 24 hrs): 10/07/24 22:59 Blood - Blood Anaerobic Blood Culture - Final Assessment And Plan - Plan Physical examination General: Alert and oriented x3, NAD, frail-appearing. HEENT: anicteric sclera. Neck: No elevated JVD Heart: Heart sounds 1 and 2 normal, regular rhythm, normal rate, no pedal edema Lungs: Clear to auscultation bilaterally, adequate breath sounds bilaterally, no rhonchi or crackles. Abdomen: Soft, mildly distended, nontender, normal bowel sounds. Ascites. Extremities: Bilateral lower extremity swelling, worse on the right, warm to touch, erythema resolved. Skin: No erythema, no ulcers Neuro: No focal motor deficit. Normal speech. Psychiatry: Normal mood, no agitation. Diagnosis Hyponatremia Cholangiocarcinoma Ascites Bilateral lower extremity edema Bilateral lower extremity venous stasis dermatitis. Plan: Ascites Bilateral Lower extremity edema Bilateral lower extremity venous stasis dermatitis. Patient is not on any antibiotics. No change in lower extremity edema compared to yesterday. Keep lower extremity elevated Continue IV Lasix Analgesics as needed. Patient is a candidate for Pleurx catheter placement for periodic peritoneal fluid drainage. 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 Continue Lasix. Monitor renal panel. Cholangiocarcinoma Diarrhea Patient likely has diarrhea related to ursodiol. Patient is currently on active immunotherapy. She is working on establishing care with oncologist Dr. King. Hold ursodiol today. Patient is ambulating with a walker. PT evaluation. Chronic anemia Likely cancer related. Monitor CBC. DVT prophylaxis: Heparin SQ. Advanced directive; Full code
--- NOTE | 2024-10-09 17:23 | EKG ---
Test Date: 2024-10-07 Test Time: 22:14:10 Sap Security Architect: AF MEASUREMENT RESULTS: Intervals: Rate: 107 ME: 162 QRSD: 72 QT: 316 QTc: 421 [place]: P: 71 ME: 162 QRS: 52 T: -1 INTERPRETIVE STATEMENTS: Sinus tachycardia Low voltage QRS Septal infarct, age undetermined Abnormal ECG Compared to ECG 10/03/2024 04:18:47 Sinus rhythm no longer present Myocardial infarct finding still present Electronically Signed On 10-09-24 17:21:21 UI LEAD DEVELOPER by Jordin Avelar
[2024-10-09] MEDS ORDERED: ACETAMINOPHEN 325 MG TABLET PO PRN (18:05)
[2024-10-09] MEDS: LOPERAMIDE HCL 2 MG CAPSULE PO STA (20:22)
[2024-10-09] MEDS: APIXABAN 2.5 MG TABLET PO SCH (20:44)
[2024-10-09] MEDS: CODEINE 30MG/APAP 300MG TAB PO PRN (20:44)
[2024-10-09] MEDS: LOPERAMIDE HCL 2 MG CAPSULE PO PRN (21:23)
[2024-10-10 00:12] LABS: STOOL CONSISTENCY Formed/Solid (soft)
[2024-10-10 00:13] LABS: C.diff Antigen/Toxin Ag neg : Tox neg (NEG : NEG); CDIFF INTERNAL NEG CONTROL White Background (WHITE BKGD)
[2024-10-10 06:53] LABS: Absolute Basophils 0.1 K/uL (0-0.5); Absolute Eosinophils 0.1 K/uL (0-0.5); Absolute Lymphocytes (CBC) 1.2 K/uL (0.7-4.9); Absolute Monocytes 0.9 K/uL (0.1-1.3); Absolute Neutrophil 5.8 K/uL (1.8-8.0); Basophils % 1.1 % (0-1.3); Eosinophils % 1.1 % (0-4.4); Hemoglobin 9.5 g/dL (12.0-15.0); Lymphocytes % 14.3 % (15.3-44.8); MCHC 32.9 g/dL (32.0-36.0); MCV 82.2 fL (80-100); MPV 7.8 fL (7.6-11.3); Monocytes % 11.7 % (3.3-12.3); Neutrophils % 71.8 % (41.7-73.7); Nucleated Red Blood Cells % 0.1 % (0-0); Platelets 345 thou/uL (152-406); RBC Red Blood Cell Count 3.52 M/uL (3.86-4.86)
[2024-10-10 07:13] LABS: Albumin 2.2 g/dL (3.4-5.0); Albumin/Globulin Ratio 0.6 (1.1-1.8); Anion Gap 8.3 mEq/L (5.0-15.0); Bilirubin Total 0.5 mg/dL (0.2-1.0); Magnesium 1.8 mg/dL (1.6-2.4); Potassium 3.3 mEq/L (3.5-5.1); Protein, Total 6.2 g/dL (6.4-8.2)
[2024-10-10 07:30] LABS: UR SODIUM 48 mmol/L (27-287)
[2024-10-10 07:31] LABS: 24H UR NA 60 mEq/24H (40-220); Urine Total Volume 24 Hours 1250 mL
--- NOTE | 2024-10-10 08:58 | RAD REPORT ---
PROCEDURE: ULTRASOUND GUIDED PARACENTESIS CLINICAL INDICATION: Malignant ascites PROCEDURE DETAILS: Consent: Informed consent for the procedure including risks, benefits and alternatives was obtained a nd time-out was performed prior to the procedure. Preparation: The site was prepared and draped using maximal sterile barrier technique including cutan eous antisepsis. Procedure: Initial limited abdominal ultrasound was performed and a large amount of ascites was seen. A safe window for paracentesis was identified with ultrasound to selene a suitable access site. Local anesthesia was administered. The peritoneal cavity was accessed, and fluid return confirmed pos ition. A 8F pigtail drainage catheter was placed and ascites was drained. The catheter was removed, and a sterile bandage was applied. Following the procedure, albumin was administered per protocol. IMPRESSION: Ultrasound guided paracentesis, yielding 3.3 mL of slightly cloudy fluid. PLAN: Aspirated fluid was sent for analysis.
--- NOTE | 2024-10-10 11:31 | P.PN ---
Date of Service: 10/10/24 Subjective: feeling better feels legs are a little better, but still very swollen ambulating with around nurse station ROS: 10 point ROS as noted above, otherwise negative Physical Exam: GEN: Alert, cachectic CV: Regular rate and rhythm, 3+ edema up to thighs bilaterally Pulm: Nonlabored respirations on room air, clear bilaterally ABD: soft, nontender, nondistended Integumentary: Bilateral lower extremity swelling, worse on the right, warm to touch, erythema mild - mostly in inner thigh area Neuro: Normal speech Problem List: Ascites Bilateral lower extremity edema Bilateral lower extremity venous stasis dermatitis Hyponatremia Cholangiocarcinoma Diarrhea Chronic anemia Ascites Bilateral Lower extremity edema Bilateral lower extremity venous stasis dermatitis. Patient is not on any antibiotics. Wounds don't look acutely infected. venous u/s (10/08): no DVT maybe slight improvement in lower extremity edema compared to yesterday. Keep lower extremity elevated. Continue IV Lasix pain control Patient is a candidate for Pleurx catheter placement for periodic peritoneal fluid drainage. 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 Continue Lasix. continue to monitor renal function monitor and replete electrolytes as needed Cholangiocarcinoma Diarrhea Patient likely has diarrhea related to ursodiol. Patient is currently on active immunotherapy. She is working on establishing care with oncologist Dr. King. Patient is ambulating with a walker. continue PT Chronic anemia Likely cancer related. Monitor CBC - stable. VTE: home eliquis Dispo: Home . ~2 days Time Spent Managing Pts Care (In Minutes): 41
[2024-10-10] MEDS: MAGNESIUM SULFATE 1 gm IVPB 1 GM/100 ML BAG IV ONE (16:46)
[2024-10-10] MEDS: POTASSIUM CL SA 10 MEQ TAB PO ONE (16:47)
[2024-10-11 06:15] LABS: Hematocrit 28.1 % (36.0-45.0); Hemoglobin 9.1 g/dL (12.0-15.0); MCH 26.8 pg (27.0-35.0); MCHC 32.4 g/dL (32.0-36.0); MCV 82.5 fL (80-100); MPV 7.7 fL (7.6-11.3); Platelets 297 thou/uL (152-406); RBC Red Blood Cell Count 3.41 M/uL (3.86-4.86)
[2024-10-11 06:42] LABS: Anion Gap 4.9 mEq/L (5.0-15.0); Magnesium 1.9 mg/dL (1.6-2.4); Potassium 3.9 mEq/L (3.5-5.1)
[2024-10-11] MEDS: FUROSEMIDE 20 MG TABLET PO SCH (09:19)
--- NOTE | 2024-10-11 10:57 | P.PN ---
Date of Service: 10/11/24 Subjective: feeling better today slept well overnight, feels like she has more energy ambulated around the floor multiple times with walker and today lower extremity edema improving ROS: 10 point ROS as noted above, otherwise negative Physical Exam: GEN: Alert, cachectic CV: Regular rate and rhythm, 1-2+ edema up to thighs bilaterally Pulm: Nonlabored respirations on room air, clear bilaterally ABD: soft, nontender, nondistended Integumentary: Bilateral lower extremity swelling, worse on the right, warm to touch, erythema mild - mostly in inner thigh area Neuro: Normal speech Problem List: Ascites Bilateral lower extremity edema Bilateral lower extremity venous stasis dermatitis Hyponatremia, improving Cholangiocarcinoma Diarrhea Chronic anemia Ascites Bilateral Lower extremity edema Bilateral lower extremity venous stasis dermatitis. Patient is not on any antibiotics. Wounds don't look acutely infected. venous u/s (10/08): no DVT Lower extremity edema improving daily. Keep lower extremity elevated. IV lasix deescalated to oral lasix 20 mg daily (10/11) Patient is a candidate for Pleurx catheter placement for periodic peritoneal fluid drainage. however patient and family want to avoid this for now - given history of family member having one when sick and not doing well s/p paracentesis 10/10; 3.3mL slightly cloudy fluid drained Seems to get tapped every 1-2 weeks. Family unsure exactly how often. 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 IV lasix deescalated to oral lasix 20 mg daily (10/11) continue to monitor renal function monitor and replete electrolytes as needed was previously on aldactone, but recently stopped Cholangiocarcinoma Diarrhea Patient likely has diarrhea related to ursodiol. Patient is currently on active immunotherapy. She is working on establishing care with oncologist Dr. King. Patient is ambulating with a walker. continue PT Chronic anemia Likely cancer related. Monitor CBC - stable. VTE: home eliquis Dispo: Home with , anticipate DC tomorrow pending further diuresis Time Spent Managing Pts Care (In Minutes): 41
[2024-10-12 04:29] VITALS: BMI 25.3
[2024-10-12 06:53] LABS: Hematocrit 29.4 % (36.0-45.0); Hemoglobin 9.8 g/dL (12.0-15.0); MCH 27.5 pg (27.0-35.0); MCHC 33.4 g/dL (32.0-36.0); MCV 82.5 fL (80-100); MPV 7.2 fL (7.6-11.3); Platelets 349 thou/uL (152-406); RBC Red Blood Cell Count 3.56 M/uL (3.86-4.86); Red Cell Distribution Width 22.9 % (12.1-15.2)
[2024-10-12 07:19] LABS: Albumin 1.9 g/dL (3.4-5.0); Albumin/Globulin Ratio 0.5 (1.1-1.8); Anion Gap 7.8 mEq/L (5.0-15.0); Bilirubin Total 0.4 mg/dL (0.2-1.0); Globulin 3.7 g/dL (2.3-3.5); Magnesium 1.9 mg/dL (1.6-2.4); Potassium 3.8 mEq/L (3.5-5.1); Protein, Total 5.6 g/dL (6.4-8.2)
[2024-10-12] MEDS ORDERED: SPIRONOLACTONE 25 MG TABLET PO SCH (09:00)
[2024-10-12] MEDS: POTASSIUM CL SA 10 MEQ TAB PO ONE (09:16)
[2024-10-12 09:51] VITALS: O2SAT 95
[2024-10-12 12:40] VITALS: BP 148/83; TEMP 98
--- NOTE | 2024-10-13 06:45 | P.DS ---
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 The patient was last seen in the ED on 10/03/2024 for similar complaints. The patient states that she completed chemotherapy as well as a paracentesis yesterday. She is not on home oxygen, and has no smoking history. The patient denies shortness of breath, and urinary symptoms. Hospital Course: Problem List: Ascites Bilateral lower extremity edema Bilateral lower extremity venous stasis dermatitis Hyponatremia, improving Cholangiocarcinoma Diarrhea Chronic anemia Physician discharge instructions: Patient presented with worsening lower extremity swelling, redness, pain most consistent with lower extremity edema. She reports recently completing chemotherapy and just recently had paracentesis day before admission. Venous ultrasound was negative for DVT. She had severe 3+ tense bilateral lower extremity edema. She responded well to IV lasix, and had improvement of her symptoms. IV lasix was deescalated to 20 mg oral lasix 10/11 and patient continued to improve daily. Discussed recent regimen of lasix with patient and family. She was taking 20mg twice daily for a few days before presenting to the hospital. Discussed uncertain of exact etiology- if chemo side effect, progression of her disease, or a component of stopping spironolactone. Patient and family stating swelling was different after chemo, and wasn't worsening prior to her chemo. They also reported in the recent past few weeks-month or so, stopping spironolactone for unknown reason. Reviewing labs, she did have some hyponatremia that may have been the reason for discontinuation. Unclear, but given this information, the decision was to increase her lasix to 20mg twice daily for now. She underwent paracentesis on 10/10 and had 3.3mL of slightly cloudly fluid drained. No evidence of infection. Patient was feeling better, breathing more comfortably on room air, lower extremity edema improving, and was deemed stable for discharge. Ambulated several laps around the nursing station with walker independently. New prescription sent for oral lasix 20 mg daily. Check daily weights around the same time each day. Keep daily diary of daily weights to take to follow up appointments. Recommend following up with PCP in ~1 week for further management. She was noted to have some intermittent diarrhea earlier in hospitalization which resolved. Suspect secondary to volume overload. There was initial suspicion of side effect of Ursodiol. However diarrhea resolved while she was still taking this medication, and patient /family reported taking this medication for quite some time without any prior issue. She reports she currently on active immunotherapy and is currently working on trying to establish care with oncologist Dr. King. Recommended further discussion with her oncologist regarding whether to proceed with her chemo/immunotherapy which is scheduled for this coming Wednesday. Medications: Lasix 20 mg twice daily - recommend in the morning and 2nd dose around 1pm. Avoid taking after 3-4pm so not disturbing sleep as much. Follow up: PCP 3-[address] King in near future Please call to schedule / confirm appointment Physical Exam: GEN: Alert, cachectic CV: Regular rate and rhythm, no edema Pulm: Nonlabored respirations on room air, clear bilaterally ABD: soft, nontender, nondistended Neuro: Normal speech Vital Signs/Physical Exam: Temp Pulse Resp BP Pulse Ox 98.0 F 98 H 15 148/83 H 95 10/12/24 12:00 10/12/24 12:00 10/12/24 12:00 10/12/24 12:00 10/12/24 12:00 Laboratory Data at Discharge: WBC 6.00 thou/uL (4.3-10.9) 10/12/24 06:38 Hgb 9.8 g/dL (12.0-15.0) L 10/12/24 06:38 Hct 29.4 % (36.0-45.0) L 10/12/24 06:38 Plt Count 349 thou/uL (152-406) 10/12/24 06:38 PT 15.9 SECONDS (9.4-12.5) H 10/07/24 23:39 INR 1.43 10/07/24 23:39 APTT 33.2 SECONDS (24.3-36.9) 10/07/24 23:39 Sodium 134 mEq/L (136-145) L 10/12/24 06:38 Potassium 3.8 mEq/L (3.5-5.1) 10/12/24 06:38 BUN 15 mg/dL (7-18) 10/12/24 06:38 Creatinine 0.55 mg/dL (0.55-1.02) 10/12/24 06:38 Glucose 109 mg/dL (74-106) H 10/12/24 06:38 Phosphorus 2.4 mg/dL (2.5-4.9) L 10/08/24 08:37 Magnesium 1.9 mg/dL (1.6-2.4) 10/12/24 06:38 Total Bilirubin 0.4 mg/dL (0.2-1.0) 10/12/24 06:38 AST 49 U/L (15-37) H 10/12/24 06:38 ALT 30 U/L (13-56) 10/12/24 06:38 Alkaline Phosphatase 134 U/L (45-117) H 10/12/24 06:38 Triglycerides 85 mg/dL (<150) 10/09/24 06:13 Cholesterol 126 mg/dL (<200) 10/09/24 06:13 HDL Cholesterol 38 mg/dL (40-60) L 10/09/24 06:13 Cholesterol/HDL Ratio 3.32 10/09/24 06:13 Home Medications: ursodioL [Ursodiol] 500 mg PO BID 08/25/24 Apixaban [Eliquis] 2.5 mg PO BID 10/08/24 Cholecalciferol (Vitamin D3) [Vitamin D3] 1 tab PO DAILY 10/08/24 Docusate Sodium [Stool Softener] 100 mg PO DAILY 10/08/24 Fexofenadine HCl [[place] Allergy] 180 mg PO DAILY 10/08/24 Multivit-Min/Iron/Folic/Lutein [Centrum Silver Women Tablet] 1 tab PO DAILY 10/08/24 Furosemide [Lasix*] 20 mg PO BID 30 Days #60 tab 10/12/24 New Medications: Furosemide [Lasix*] 20 mg PO BID 30 Days #60 tab Physician Discharge Instructions: Physician discharge instructions: Patient presented with worsening lower extremity swelling, redness, pain most consistent with lower extremity edema. She reports recently completing chemoth erapy and just recently had paracentesis day before admission. Venous ultrasound was negative for DVT. She had severe 3+ tense bilateral lower extremity edema. She responded well to IV lasix, and had improvement of her symptoms. IV lasix was deescalated to 20 mg oral lasix 10/11 and patient continued to improve daily. Discussed recent regimen of lasix with patient and family. She was taking 20mg twice daily for a few days before presenting to the hospital. Discussed uncertain of exact etiology- if chemo side effect, progression of her disease, or a component of stopping spironolactone. Patient and family stating swelling was different after chemo, and wasn't worsening prior to her chemo. They also reported in the recent past few weeks-month or so, stopping spironolactone for unknown reason. Reviewing labs, she did have some hyponatremia that may have been the reason for discontinuation. Unclear, but given this information, the decision was to increase her lasix to 20mg twice daily for now. She underwent paracentesis on 10/10 and had 3.3mL of slightly cloudly fluid drained. No evidence of infection. Patient was feeling better, breathing more comfortably on room air, lower extremity edema improving, and was deemed stable for discharge. Ambulated several laps around the nursing station with walker independently. New prescription sent for oral lasix 20 mg daily. Check daily weights around the same time each day. Keep daily diary of daily weights to take to follow up appointments. Recommend following up with PCP in ~1 week for further management. She was noted to have some intermittent diarrhea earlier in hospitalization which resolved. Suspect secondary to volume overload. There was initial suspicion of side effect of Ursodiol. However diarrhea resolved while she was still taking this medication, and patient /family reported taking this medication for quite some time without any prior issue. She reports she currently on active immunotherapy and is currently working on trying to establish care with oncologist Dr. King. Recommended further discussion with her oncologist regarding whether to proceed with her chemo/immunotherapy which is scheduled for this coming Wednesday. Medications: Lasix 20 mg twice daily - recommend in the morning and 2nd dose around 1pm. Avoid taking after 3-4pm so not disturbing sleep as much. Follow up: PCP 3-[address] King in near future Please call to schedule / confirm appointment Established Home Health: [facility] P:[phone] F:[phone] Followup: Brit King MD [ACTIVE - CAN ADMIT] - (follow up in 1-2 weeks) Kilgore,Hillary, MD [Primary Care Provider] - (follow up in 3-5 days) Time spent managing pt's care (in minutes): 45
== END 2024-10-12 15:19 | disposition home health service (06) | DRG 436 ==
LOC: ER 21:26 → ERHOLD 10-08 03:14 → 4TH 10-08 04:05 → OBSVTOIN 10-08 14:52
PROVIDERS: ADMIT Internal Medicine; ATTEND Hospitalist
PROC: 0W9G3ZZ Drainage of Peritoneal Cavity, Percutaneous Approach (ICD-10-PCS; principal; 2024-10-10)
DX: C24.0 Malignant neoplasm of extrahepatic bile duct (principal); E22.2 Syndrome of inappropriate secretion of antidiuretic hormone; R64 Cachexia; K52.1 Toxic gastroenteritis and colitis; R18.0 Malignant ascites; I87.2 Venous insufficiency (chronic) (peripheral); E87.70 Fluid overload, unspecified; D63.0 Anemia in neoplastic disease; I10 Essential (primary) hypertension; T50.995A Adverse effect of other drugs, medicaments and biological substances, initial encounter; R00.0 Tachycardia, unspecified; Z88.8 Allergy status to other drugs, medicaments and biological substances; Z90.49 Acquired absence of other specified parts of digestive tract; Z79.82 Long term (current) use of aspirin; Z79.01 Long term (current) use of anticoagulants; Z68.25 Body mass index [BMI] 25.0-25.9, adult; Z79.899 Other long term (current) drug therapy; Z91.018 Allergy to other foods
CPT/HCPCS: 36415; 49083; 80048; 80053; 80061; 80076; 81003; 82024; 82533; 82550; 83605; 83735; 83880; 83930; 83935; 84100; 84300; 84443; 85025; 85027; 85610; 85730; 87040; 87324; 93005; 93970; 96365; 96367; 96375; 99285; G0378; J0692; J0834; J1644; J1940; J3475; J7050

== ENCOUNTER 2024-10-15 17:06 | Emergency (ER) | payer OTHER ==
[2024-10-15 18:35] LABS: Absolute Basophils 0.1 K/uL (0-0.5); Absolute Eosinophils 0.1 K/uL (0-0.5); Absolute Lymphocytes (CBC) 0.8 K/uL (0.7-4.9); Absolute Monocytes 1.4 K/uL (0.1-1.3); Absolute Neutrophil 9.3 K/uL (1.8-8.0); Basophils % 0.6 % (0-1.3); Eosinophils % 0.5 % (0-4.4); Hematocrit 32.3 % (36.0-45.0); Hemoglobin 10.4 g/dL (12.0-15.0); MCH 26.7 pg (27.0-35.0); MCHC 32.1 g/dL (32.0-36.0); MCV 83.4 fL (80-100); MPV 7.8 fL (7.6-11.3); Monocytes % 11.8 % (3.3-12.3); Neutrophils % 80.1 % (41.7-73.7); Platelets 376 thou/uL (152-406); RBC Red Blood Cell Count 3.88 M/uL (3.86-4.86)
[2024-10-15 18:55] LABS: Albumin 2.1 g/dL (3.4-5.0); Albumin/Globulin Ratio 0.5 (1.1-1.8); Anion Gap 9.6 mEq/L (5.0-15.0); Bilirubin Total 0.4 mg/dL (0.2-1.0); Globulin 4.5 g/dL (2.3-3.5); Potassium 3.6 mEq/L (3.5-5.1); Protein, Total 6.6 g/dL (6.4-8.2); Troponin High Sensitivity 13.4 pg/mL (<58.9)
--- NOTE | 2024-10-15 18:57 | ER ---
Nurse's Notes [facility] Name: Alberta Brown Age: 88 yrs Sex: Female : 1935 Arrival Date: 10/15/2024 Time: 17:06 Bed 4 Private MD: Diagnosis: Syncope Near Presentation: 10/15 17:28 Chief complaint: Family states that patient got flushed and had subjective fever. Pt cm10 complaining of abdominal pain and unable to urinate. Pt states that she hasn't urinated since 1530. Coronavirus screen: Client denies travel out of the [place] in the last 14 days. Ebola Screen: Patient denies travel to an Ebola-affected area in the 21 days before illness onset. No symptoms or risks identified at this time. Initial Sepsis Screen: Does the patient meet any 2 criteria? HR > 90 bpm. Does the patient have a suspected source of infection? No. Patient's initial sepsis screen is negative. Risk Assessment: Do you want to hurt yourself or someone else? Patient reports no desire to harm self or others. Onset of symptoms was October 15, 2024. 17:28 Method Of Arrival: Wheelchair cm10 17:28 Acuity: MAYELA 3 cm10 Triage Assessment: 17:30 General: Appears in no apparent distress. comfortable, Behavior is calm, cooperative. cm10 Neuro: No deficits noted. Level of Consciousness is awake, alert, obeys commands, Oriented to person, place, time, situation, Appropriate for age. Respiratory: No deficits noted. Airway is patent Respiratory effort is even, unlabored, Respiratory pattern is regular, symmetrical. Historical: - Allergies: 17:30 Chocolate; cm10 17:30 pravastatin; cm10 - Home Meds: 17:30 Eliquis 2.5 mg Oral tablet 1 tab 2 times per day [Active]; furosemide 20 mg Oral tablet cm10 1 tab daily [Active]; sotalol 80 mg Oral tablet 1 tab 2 times per day [Active]; ursodiol 500 mg Oral tablet 1 tab 2 times per day [Active]; - PMHx: 17:30 BILE DUCT CANCER (Hypertension); Hypertension; cm10 - PSHx: 17:30 Appendectomy; duct stent; cm10 - Immunization history:: Adult Immunizations up to date. - Infectious Disease History:: Denies. - Social history:: Smoking status: Patient denies any tobacco usage or history of. Screenin:32 [facility] ED Fall Risk Assessment (Adult) History of falling in the last 3 months, me1 including since admission No falls in past 3 months (0 pts) Confusion or Disorientation No (0 pts) Intoxicated or Sedated No (0 pts) Impaired Gait Yes (1 pt) Mobility Assist Device Used Yes (1 pt) Altered Elimination No (0 pt) Score/Fall Risk Level 0 - 2 = Low Risk Maintained a safe environment, Provided non-skid footwear, Hourly rounding (assess needs \T\ fall precautionary measures) done. Abuse screen: Denies threats or abuse. Nutritional screening: No deficits noted. Tuberculosis screening: No symptoms or risk factors identified. Assessment: 18:32 General: Appears uncomfortable, ill, well groomed, well developed, well nourished, me1 Behavior is calm, cooperative, appropriate for age, Reports Family states that patient got flushed and had subjective fever. Pt complaining of abdominal pain and unable to urinate. Pt states that she hadnt urinated since 15:30. Patient reports voiding just before coming back to a room. Pain: Complains of pain in abdomen Pain does not radiate. Pain currently is 3 out of 10 on a pain scale. Quality of pain is described as pressure, tender, Pain began gradually. Neuro: Level of Consciousness is awake, alert, obeys commands, Oriented to person, place, time, situation, Appropriate for age. Cardiovascular: Patient's skin is warm and dry. Respiratory: Airway is patent Respiratory effort is even, unlabored, Respiratory pattern is regular, symmetrical. GI: Abdomen is distended, noted to have ascites. : No signs and/or symptoms were reported regarding the genitourinary system. EENT: No signs and/or symptoms were reported regarding the EENT system. Derm: Skin is intact, is healthy with good turgor, Skin is pale. Musculoskeletal: No signs and/or symptoms reported regarding the musculoskeletal system. Vital Signs: 17:28 BP 128 / 72; Pulse 97; Resp 18; Temp 98.4(O); Pulse Ox 96% on R/A; Weight 61.23 kg; cm10 Height 5 ft. 3 in. ; Pain 6/10; 18:30 BP 150 / 85; Pulse 94; Resp 17; Pulse Ox 97% ; me1 19:07 BP 148 / 79; Pulse 88; Resp 18; Temp 98.4; Pulse Ox 100% ; me1 17:28 Body Mass Index 23.91 (61.23 kg, 160.02 cm) cm10 17:28 Pain Scale: Adult cm10 ED Course: 17:11 Patient arrived in ED. mg5 17:12 Eduardo Donnelly MD is Attending Physician. ec2 17:30 Triage completed. cm10 17:31 Arm band placed on right wrist. Patient placed in waiting room. cm10 18:30 CBC with Diff Sent. me1 18:30 CMP Sent. me1 18:30 Lipase Sent. me1 18:30 Initial lab(s) drawn, by me, sent to lab. Inserted saline lock: 22 gauge in right me1 antecubital area, using aseptic technique. 18:32 Patient has correct armband on for positive identification. Bed in low position. Call me1 light in reach. Side rails up X2. Provided Education on: POC. Verbalized understanding. . Client placed on continuous cardiac and pulse oximetry monitoring. NIBP monitoring applied. quality assurance monitor body on. Pulse ox on. NIBP on. 18:32 No provider procedures requiring assistance completed. me1 18:40 EKG done, by ED staff, reviewed by Eduardo Donnelly MD. me1 19:05 Yvette Santa, RN is Primary Nurse. me1 19:18 IV discontinued, intact, bleeding controlled, No redness/swelling at site. Pressure me1 dressing applied. Administered Medications: No medications were administered Medication: 18:32 VIS not applicable for this client. me1 Outcome: 18:57 Discharge ordered by . ec2 19:18 Discharged to home via wheelchair, with significant other, me1 19:18 Condition: stable 19:18 Discharge instructions given to patient, significant other, Instructed on discharge instructions, follow up and referral plans. Demonstrated understanding of instructions, follow-up care, 19:19 Patient left the ED. me1 Signatures: Cami Goodson, RN RN 10 Yvette Santa, BACILIO RN me1 Prerna Nicole mg5 Eduardo Donnelly MD MD ec2 Corrections: (The following items were deleted from the chart) 18:32 17:28 Chief complaint: Family states that patient got flushed and had subjective fever. me1 Pt complaining of abdominal pain and unable to urinate. Pt states that she hasn't urinated since 1530. cm10 18:36 18:30 Troponin High Sensitivity+C.LAB.ELVIA drawn and sent. me1 EDMS
--- NOTE | 2024-10-15 18:57 | EDPHYS ---
Physician Documentation [facility] Name: Alberta Brown Age: 88 yrs Sex: Female : 1935 Arrival Date: 10/15/2024 Time: 17:06 Bed 4 Private MD: ED Physician Eduardo Donnelly HPI: 10/15 18:20 This 88 yrs old Female presents to ER via Wheelchair with complaints of ec2 Urinary Problem, Fever. 18:20 Patient arrives today for feeling flushed. Patient reports that she had a bout where ec2 she felt flushed and lightheaded and presyncopal. No chest pain, no shortness of breath. Reports history of CBD cancer, history of ascites, states that she has some abdominal distention with his baseline and states that she has a follow-up and have her abdomen tapped in the next 2 to 3 days.. Historical: - Allergies: 17:30 Chocolate; cm10 17:30 pravastatin; cm10 - Home Meds: 17:30 Eliquis 2.5 mg Oral tablet 1 tab 2 times per day [Active]; furosemide 20 mg Oral tablet cm10 1 tab daily [Active]; sotalol 80 mg Oral tablet 1 tab 2 times per day [Active]; ursodiol 500 mg Oral tablet 1 tab 2 times per day [Active]; - PMHx: 17:30 BILE DUCT CANCER (Hypertension); Hypertension; cm10 - PSHx: 17:30 Appendectomy; duct stent; cm10 - Immunization history:: Adult Immunizations up to date. - Infectious Disease History:: Denies. - Social history:: Smoking status: Patient denies any tobacco usage or history of. ROS: 18:20 Constitutional: as per hpi ec2 Exam: 18:20 Constitutional: GEN: NAD Head: atraumatic Eyes: EOMI Ears: External ears are ec2 normal. CV: regular rate LUNGS: no respiratory distress ABD: Distended abdomen otherwise not guarding or rigid SKIN: no evidence of rashes MSK: no evidence of trauma Vital Signs: 17:28 BP 128 / 72; Pulse 97; Resp 18; Temp 98.4(O); Pulse Ox 96% on R/A; Weight 61.23 kg; cm10 Height 5 ft. 3 in. ; Pain 6/10; 18:30 BP 150 / 85; Pulse 94; Resp 17; Pulse Ox 97% ; me1 19:07 BP 148 / 79; Pulse 88; Resp 18; Temp 98.4; Pulse Ox 100% ; me1 17:28 Body Mass Index 23.91 (61.23 kg, 160.02 cm) cm10 17:28 Pain Scale: Adult cm10 MDM: 17:40 Medical Screening Exam initiated ec2 18:20 Data reviewed: vital signs, nurses notes. ED course: Patient arrives today for ec2 evaluation of feeling flushed. Examination shows abdominal distention which is baseline for patient. Will obtain lab work, EKG. Differential includes arrhythmia, electrolyte disturbances, anemia.. 18:56 ED course: Metabolic profile shows slight hyponatremia with sodium 128. Troponin within ec2 normal ranges. Lipase within normal ranges. On reassessment patient is well-appearing no acute distress. Will discharge home. Return precautions given. I instructed her she needs a follow-up with her warehouse assistant or interventional radiologist to have her scheduled outpatient paracenteses.. 18:56 ED course: Patient also initially had complaint of inability to void however this had ec2 since resolved.. 10/15 17:32 Order name: CBC with Diff ec2 10/15 17:32 Order name: CMP; Complete Time: 18:56 ec2 10/15 17:32 Order name: Lipase; Complete Time: 18:56 ec2 10/15 18:36 Order name: Troponin High Sensitivity; Complete Time: 18:56 EDMS 10/15 17:32 Order name: IV Saline Lock; Complete Time: 18:30 ec2 10/15 17:32 Order name: Labs collected and sent; Complete Time: 18:30 ec2 10/15 18:21 Order name: EKG - Nurse/Tech; Complete Time: 18:39 ec2 Administered Medications: No medications were administered Disposition Summary: 10/15/24 18:57 Discharge Ordered Notes: Location: Home ec2 Condition: Stable ec2 Diagnosis - Syncope Near ec2 Followup: ec2 - With: Private Physician - When: - Reason: Re-evaluation by your physician Discharge Instructions: - Discharge Summary Sheet ec2 - Near-Syncope ec2 Forms: - Medication Reconciliation Form ec2 - Antibiotic Education ec2 - Prescription Opioid Use ec2 - Patient Portal Instructions ec2 - Leadership Thank You Letter ec2 Signatures: Dispatcher [employer] EDMS Cami Goodson RN RN cm10 Eduardo Donnelly MD MD ec2 Corrections: (The following items were deleted from the chart) 17:32 17:32 CBC+H.LAB.BRZ ordered. EDMS EDMS 17:32 17:32 COMPREHENSIVE METABOLIC PANEL+C.LAB.BRZ ordered. EDMS EDMS 17:32 17:32 LIPASE+C.LAB.BRZ ordered. EDMS EDMS 17:32 17:32 Urinalysis+U.LAB.BRZ ordered. EDMS EDMS 18:21 17:32 Bladder Scanner ordered. ec2 ec2 18:36 18:22 Troponin High Sensitivity+C.LAB.BRZ ordered. EDMS EDMS
[2024-10-15 19:44] LABS: Anisocytosis 1+; Blood Morphology Comment NOTED (NOT SEEN); Platelet Estimate ADEQ; White Blood Cell Scan OK (OK)
[2024-10-15 19:45] LABS: Poikilocytosis 1+
[2024-10-15 22:29] VITALS: TEMP 98.4
[2024-10-15 22:40] VITALS: BP 148/79; O2SAT 100
--- NOTE | 2024-10-18 11:40 | EKG ---
Test Date: 2024-10-15 Test Time: 18:44:39 Diesel Scoop Operator: MEASUREMENT RESULTS: Intervals: Rate: 102 MI: 158 QRSD: 68 QT: 358 QTc: 466 [place]: P: 81 MI: 158 QRS: 9 T: 61 INTERPRETIVE STATEMENTS: Undetermined rhythm Low voltage QRS Nonspecific ST abnormality Abnormal ECG Compared to ECG 10/07/2024 22:14:10 ST (T wave) deviation now present Sinus tachycardia no longer present Myocardial infarct finding no longer present Electronically Signed On 10-18-24 11:35:00 HEEL SEAT LASTER by Hector Davila
== END 2024-10-15 19:19 | disposition home or self-care (01) ==
LOC: ER 17:06
DX: R55 Syncope and collapse (principal); R50.9 Fever, unspecified; I10 Essential (primary) hypertension; Z85.89 Personal history of malignant neoplasm of other organs and systems; Z79.01 Long term (current) use of anticoagulants
CPT/HCPCS: 36415; 80053; 83690; 84484; 85025; 93005; 99284

== ENCOUNTER 2024-10-20 11:28 | Emergency (ER) | payer OTHER ==
[2024-10-20] MEDS ORDERED: FAMOTIDINE 20 MG/2 ML VIAL IV ONE (12:04)
--- NOTE | 2024-10-20 12:13 | RAD REPORT ---
Procedure: Chest Single View HISTORY: Abdominal distention COMPARISON: August 25, 2024 FINDINGS: The lungs appear clear of acute infiltrate. No significant pleural effusion noted. The heart is normal size. IMPRESSION: No acute abnormality is displayed.
[2024-10-20 12:16] LABS: Absolute Basophils 0.1 K/uL (0-0.5); Absolute Lymphocytes (CBC) 0.8 K/uL (0.7-4.9); Absolute Monocytes 1.1 K/uL (0.1-1.3); Absolute Neutrophil 13.3 K/uL (1.8-8.0); Basophils % 0.5 % (0-1.3); Eosinophils % 0.3 % (0-4.4); Hematocrit 30.6 % (36.0-45.0); Hemoglobin 9.8 g/dL (12.0-15.0); Lymphocytes % 5.4 % (15.3-44.8); MCH 26.8 pg (27.0-35.0); MCHC 32.1 g/dL (32.0-36.0); MCV 83.4 fL (80-100); MPV 7.6 fL (7.6-11.3); Monocytes % 7.3 % (3.3-12.3); Neutrophils % 86.5 % (41.7-73.7); Platelets 580 thou/uL (152-406); RBC Red Blood Cell Count 3.66 M/uL (3.86-4.86)
[2024-10-20 12:30] LABS: PT Prothrombin Time 15.7 SECONDS (9.4-12.5); Protime INR 1.42
[2024-10-20 12:36] LABS: Albumin 2.2 g/dL (3.4-5.0); Albumin/Globulin Ratio 0.5 (1.1-1.8); Anion Gap 9.5 mEq/L (5.0-15.0); Bilirubin Direct 0.3 mg/dL (0-0.2); Bilirubin Indirect, Calculated 0.4 mg/dL (0.2-0.8); Bilirubin Total 0.7 mg/dL (0.2-1.0); Globulin 4.1 g/dL (2.3-3.5); Magnesium 1.8 mg/dL (1.6-2.4); Potassium 3.5 mEq/L (3.5-5.1); Protein, Total 6.3 g/dL (6.4-8.2); Troponin High Sensitivity 12.5 pg/mL (<58.9)
--- NOTE | 2024-10-20 12:47 | RAD REPORT ---
EXAMINATION: CT ABDOMEN AND PELVIS WITH CONTRAST CLINICAL INDICATION: Abdominal pain TECHNIQUE: CT abdomen and pelvis was performed, after the administration of 100 cc Isovue-300.. Sagit diego and coronal reconstructions were obtained. One or more of the following dose reduction techniques were used: Automated exposure control, adjustment of the mA and kV according to patient si ze, and iterative reconstruction. Unless otherwise specified, incidental findings do not require dedicated imaging follow-up. [id number]. Oral contrast was not given which limits evaluation of bowel and appendix. COMPARISON: .August 2024 FINDINGS: Biliary stent in place with pneumobilia. Significant dilatation of the biliary tree not noted. No sig nificant hepatic lesion noted. The gallbladder is distended. Mild prominence of the pancreatic duct unchanged. Tiny hepatic cyst suspected. Adrenals and kidneys unremarkable No adnexal mass. No significant diverticulitis. No bowel obstruction. Moderate amount of stool within the colon. Moderate to large amount of ascites. : IMPRESSION: Biliary stent in place without significant dilatation of the biliary tree. Moderate to large amount of ascites Gallbladder distention
[2024-10-20 12:53] LABS: Anisocytosis 2+; Blood Morphology Comment NOTED (NOT SEEN); Platelet Estimate INCR; White Blood Cell Scan OK (OK)
--- NOTE | 2024-10-20 13:39 | ER ---
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 Coronavirus screen: Client denies travel out of the [place] in the last 14 days. Ebola Screen: Patient negative for fever greater than or equal to 101.5 degrees Fahrenheit, and additional compatible Ebola Virus Disease symptoms Patient denies exposure to infectious person. Patient denies travel to an Ebola-affected area in the 21 days before illness onset. No symptoms or risks identified at this time. Initial Sepsis Screen: Does the patient meet any 2 criteria? HR > 90 bpm. Does the patient have a suspected source of infection? No. Patient's initial sepsis screen is negative. Risk Assessment: Do you want to hurt yourself or someone else? Patient reports no desire to harm self or others. Onset of symptoms was October 17, 2024. 11:50 Method Of Arrival: Ambulatory tm6 11:50 Acuity: MAYELA 3 tm6 Triage Assessment: 11:52 General: Appears in no apparent distress. Behavior is calm, cooperative. Pain: tm6 Complains of pain in epigastric area. EENT: Reports nasal congestion. Neuro: Level of Consciousness is awake, alert, obeys commands, Oriented to person, place, time, situation. Cardiovascular: Patient's skin is warm and dry. Respiratory: Reports "congestion in lungs" Airway is patent Respiratory effort is even, unlabored, Respiratory pattern is regular, symmetrical. GI: Abdomen is round distended, Reports epigastric pain. : No signs and/or symptoms were reported regarding the genitourinary system. Derm: No signs and/or symptoms reported regarding the dermatologic system. Musculoskeletal: No signs and/or symptoms reported regarding the musculoskeletal system. Historical: - Allergies: 11:52 Chocolate; tm6 11:52 pravastatin; tm6 - PMHx: 11:52 BILE DUCT CANCER (Hypertension); Hypertension; tm6 - PSHx: 11:52 Appendectomy; duct stent; tm6 - Immunization history:: Client reports receiving the 2nd dose of the Covid vaccine. - Infectious Disease History:: Denies. - Social history:: Smoking status: unknown. Screenin:54 [facility] ED Fall Risk Assessment (Adult) History of falling in the last 3 months, ko1 including since admission No falls in past 3 months (0 pts) Confusion or Disorientation No (0 pts) Intoxicated or Sedated No (0 pts) Impaired Gait No (0 pts) Mobility Assist Device Used No (0 pt) Altered Elimination No (0 pt) Score/Fall Risk Level 0 - 2 = Low Risk Oriented to surroundings, Maintained a safe environment, Educated pt \\T\\ family on fall prevention, incl call for assistance when getting out of bed, Assessed \\T\\ reinforced patient's understanding of fall precautions, Provided non-skid footwear, Hourly rounding (assess needs \\T\\ fall precautionary measures) done. Abuse screen: Denies threats or abuse. Denies injuries from another. Nutritional screening: No deficits noted. Tuberculosis screening: No symptoms or risk factors identified. Assessment: 12:00 General: Appears ill, slender, Behavior is calm, cooperative, appropriate for age. ko1 Pain: Complains of pain in abdomen. Neuro: No deficits noted. Cardiovascular: No deficits noted. Respiratory: No deficits noted. GI: Abdomen is noted to have ascites, Bowel sounds present X 4 quads. Abd is rigid. : No deficits noted. EENT: No deficits noted. Derm: No deficits noted. Musculoskeletal: No deficits noted. 14:58 Reassessment: REPORT TO SHAUNA RIBERA FOR [facility]. bp Vital Signs: 11:50 BP 148 / 89; Pulse 106; Resp 18; Temp 98.8(O); Pulse Ox 95% on R/A; MAP 107 mmHg; ss Weight 61 kg; Pain 0/10; 12:30 BP 127 / 81; Pulse 104; Resp 16; Pulse Ox 97% ; ko1 13:00 BP 117 / 67; Pulse 102; Resp 18; Pulse Ox 95% ; ko1 13:30 BP 120 / 68; Pulse 99; Resp 17; Pulse Ox 97% ; ko1 14:00 BP 116 / 73; Pulse 99; Resp 15; Pulse Ox 96% on R/A; ko1 11:50 Pain Scale: Adult ss ED Course: 11:31 Patient arrived in ED. im 11:35 Cali Mcmahan MD is Attending Physician. bobby 11:44 Val Henry, RN is Primary Nurse. ko1 11:52 Triage completed. tm6 11:52 Arm band placed on right wrist. tm6 11:54 Patient has correct armband on for positive identification. Allergy band placed. Fall ko1 risk band placed. Placed in gown. Bed in low position. Call light in reach. Side rails up X2. Provided Education on: labs, meds. Client placed on continuous cardiac and pulse oximetry monitoring. NIBP monitoring applied. multimedia manager on. Door closed. Noise minimized. Lights dimmed. Warm blanket given. Pillow given. 11:54 Basic Metabolic Panel Sent. ko1 11:54 CBC with Diff Sent. ko1 11:54 LFT's Sent. ko1 11:54 Magnesium Sent. ko1 11:54 NT PRO-BNP Sent. ko1 11:54 PT-INR Sent. ko1 11:54 Troponin HS Sent. ko1 11:54 Lipase Sent. ko1 11:54 Initial lab(s) drawn, by ED staff, sent to lab. EKG done, by ED staff, reviewed by davon Mcmahan MD. Inserted saline lock: 22 gauge in left antecubital area, using aseptic technique. Blood collected. Flushed with 10 mL NS. 11:58 XRAY Chest (1 view) In Process Unspecified. EDMS 12:05 CT Abd/Pelvis - IV Contrast Only In Process Unspecified. EDMS 14:00 No provider procedures requiring assistance completed. ko1 14:02 Lactate w/ 2H reflex if indic. Sent. ko1 14:05 called [facility] for transfer to [facility] talked to Joey Garibay. sp 14:26 doc to doc. sp 15:11 [id number] Joey Garibay admin approval [phone] Consuelo Victor room number sp [id number] tele. 15:13 called [facility] for transport to [facility] talked to sp 15:36 Patient transferred, IV remains in place. ko1 Administered Medications: 12:06 Drug: Famotidine IVP 20 mg IVP once; dilute with 10 mL 0.9% NaCl; give over 2 minutes ko1 Route: IVP; Site: left antecubital; 12:21 Follow up: Response: No adverse reaction ko1 14:02 Drug: Piperacillin-Tazobactam IVPB 3.375 grams IVPB once over 60 mins; (mix in NS 100 ko1 mL) Route: IVPB; Infused Over: 60 mins; Site: left antecubital; 15:02 Follow up: Response: No adverse reaction; IV Status: Completed infusion; IV Intake: ko1 100ml 14:02 Drug: NS 0.9% IV (30 ml/kg) 30 ml/kg IV at bolus once; Sepsis Protocol; to be given as ko1 a bolus over 90 minutes Route: IV; Rate: bolus; Site: left antecubital; 15:37 Follow up: Response: No adverse reaction; IV Status: Completed infusion; IV Intake: ko1 1000ml Medication: 11:54 VIS not applicable for this client. ko1 Intake: 15:02 IV: 100ml; Total: 100ml. ko1 15:37 IV: 1000ml; Total: 1100ml. ko1 Outcome: 13:38 ER care complete, transfer ordered by MD. rosales 15:36 Transferred by ground EMS [facility]. to [facility], Transfer form ko1 completed. X-rays sent w/ patient. 15:36 Condition: stable 15:36 Instructed on the need for transfer, Demonstrated understanding of instructions, 15:37 Patient left the ED. ko1 Signatures: Dispatcher [employer] EDFL Cali Mcmahan MD MD cha Pinkerton, Shawna sp Blanchard, Shelby, RN RN ss Suresh Parks RN RN Val Mccormick RN RN ko1 Lucy Goncalves Tawney RN RN tm6 Corrections: (The following items were deleted from the chart) 13:42 11:50 BP 148 / 89; Pulse 106bpm; Resp 18bpm; Pulse Ox 95% RA; MAP 107 mmHg; Temp 98.8F ss Oral; Pain 0/10, Adult; tm6
--- NOTE | 2024-10-20 13:39 | EDPHYS ---
Physician Documentation [facility] Name: Alberta Brown Age: 88 yrs Sex: Female : 1935 Arrival Date: 10/20/2024 Time: 11:28 Bed 3 Private MD: ED Physician Cali Mcmahan HPI: 10/20 14:03 This 88 yrs old Female presents to ER via Ambulatory with complaints of bobby Fever, Abdominal Pain. 14:03 The patient reports fever, not measured (subjective). Onset: The symptoms/episode bobby began/occurred 2 day(s) ago. Modifying factors: there are no obvious modifying factors. Associated signs and symptoms: Pertinent positives: abdominal pain, arthralgias. Severity of symptoms: At their worst the symptoms were moderate in the emergency department the symptoms are unchanged. The patient has experienced similar episodes in the past, multiple times. Historical: - Allergies: 11:52 Chocolate; tm6 11:52 pravastatin; tm6 - PMHx: 11:52 BILE DUCT CANCER (Hypertension); Hypertension; tm6 - PSHx: 11:52 Appendectomy; duct stent; tm6 - Immunization history:: Client reports receiving the 2nd dose of the Covid vaccine. - Infectious Disease History:: Denies. - Social history:: Smoking status: unknown. ROS: 14:05 Constitutional: Negative for fever, chills, and weight loss, Eyes: Negative for injury, bobby pain, redness, and discharge, ENT: Negative for injury, pain, and discharge, Neck: Negative for injury, pain, and swelling, Cardiovascular: Negative for chest pain, palpitations, and edema, Respiratory: Negative for shortness of breath, cough, wheezing, and pleuritic chest pain, Back: Negative for injury and pain, : Negative for injury, bleeding, discharge, and swelling, MS/Extremity: Negative for injury and deformity, Skin: Negative for injury, rash, and discoloration, Neuro: Negative for headache, weakness, numbness, tingling, and seizure, Psych: Negative for depression, anxiety, suicide ideation, homicidal ideation, and hallucinations, Allergy/Immunology: Negative for hives, rash, and allergies, Endocrine: Negative for neck swelling, polydipsia, polyuria, polyphagia, and marked weight changes, 14:05 Abdomen/GI: Positive for abdominal pain, abdominal distension, of the epigastric area, right upper quadrant and left upper quadrant, Exam: 14:05 Constitutional: This is a well developed, well nourished patient who is awake, alert, bobby and in no acute distress. Head/Face: Normocephalic, atraumatic. Eyes: Pupils equal round and reactive to light, extra-ocular motions intact. Lids and lashes normal. Conjunctiva and sclera are non-icteric and not injected. Cornea within normal limits. Periorbital areas with no swelling, redness, or edema. ENT: Nares patent. No nasal discharge, no septal abnormalities noted. Tympanic membranes are normal and external auditory canals are clear. Oropharynx with no redness, swelling, or masses, exudates, or evidence of obstruction, uvula midline. Mucous membranes moist. Neck: Trachea midline, no thyromegaly or masses palpated, and no cervical lymphadenopathy. Supple, full range of motion without nuchal rigidity, or vertebral point tenderness. No Meningismus. Chest/axilla: Normal chest wall appearance and motion. Nontender with no deformity. No lesions are appreciated. Respiratory: Lungs have equal breath sounds bilaterally, clear to auscultation and percussion. No rales, rhonchi or wheezes noted. No increased work of breathing, no retractions or nasal flaring. Back: No spinal tenderness. No costovertebral tenderness. Full range of motion. Female : Normal external genitalia. Skin: Warm, dry with normal turgor. Normal color with no rashes, no lesions, and no evidence of cellulitis. MS/ Extremity: Pulses equal, no cyanosis. Neurovascular intact. Full, normal range of motion. Neuro: Awake and alert, GCS 15, oriented to person, place, time, and situation. Cranial nerves II-XII grossly intact. Motor strength 5/5 in all extremities. Sensory grossly intact. Cerebellar exam normal. Normal gait. Psych: Awake, alert, with orientation to person, place and time. Behavior, mood, and affect are within normal limits. 14:05 Cardiovascular: Rate: tachycardic, actual rate is 106 bpm, Rhythm: regular, Pulses: Pulses are 4+ in bilateral radial, brachial, femoral, popliteal, posterior tibial and and dorsalis pedis arteries.. Heart sounds: normal, Edema: is not appreciated, JVD: is not appreciated, 14:05 ECG was reviewed by the Attending Physician. Vital Signs: 11:50 BP 148 / 89; Pulse 106; Resp 18; Temp 98.8(O); Pulse Ox 95% on R/A; MAP 107 mmHg; ss Weight 61 kg; Pain 0/10; 12:30 BP 127 / 81; Pulse 104; Resp 16; Pulse Ox 97% ; ko1 13:00 BP 117 / 67; Pulse 102; Resp 18; Pulse Ox 95% ; ko1 13:30 BP 120 / 68; Pulse 99; Resp 17; Pulse Ox 97% ; ko1 14:00 BP 116 / 73; Pulse 99; Resp 15; Pulse Ox 96% on R/A; ko1 11:50 Pain Scale: Adult ss MDM: 11:35 Medical Screening Exam initiated bobby 14:07 Differential diagnosis: viral Infection, bacterial infection, URI, gastroenteritis, bobby bowel obstruction, cholecystitis, Cholelithiasis, diverticulitis, gastritis, gastroesophageal reflux disease, GI Bleed, Hepatitis, myocardia ischemia or infarction, non-specific abd pain, pancreatitis, Peptic Ulcer Disease. Data reviewed: vital signs, nurses notes, lab test result(s), EKG, radiologic studies, CT scan, plain films. Consideration of Admission/Observation Escalation of care including admission/observation considered. I considered the following discharge prescriptions or medication management in the emergency department Medications were administered in the Emergency Department. See MAR. Independent interpretation of the following test(s) in the Emergency Department EKG: See my EKG interpretation above. Test considered but Not performed: Ultrasound no abd usg. Historians other than the Patient: Family Member: well informed. Care significantly affected by the following chronic conditions: Hypertension, Cancer. 10/20 11:36 Order name: Basic Metabolic Panel; Complete Time: 13: [facility] 10/20 11:36 Order name: CBC with Diff; Complete Time: 13: [facility] 10/20 11:36 Order name: LFT's; Complete Time: 13: [facility] 10/20 11:36 Order name: Magnesium; Complete Time: 13: [facility] 10/20 11:36 Order name: NT PRO-BNP; Complete Time: 13: [facility] 10/20 11:36 Order name: PT-INR; Complete Time: 13: [facility] 10/20 11:36 Order name: Troponin HS; Complete Time: 13: [facility] 10/20 11:36 Order name: Lipase; Complete Time: 13:09 [facility] 10/20 12:54 Order name: CBC Smear Scan; Complete Time: 13:09 [facility]MI 10/20 13:09 Order name: TSH; Complete Time: 14:01 [facility] 10/20 13:21 Order name: Blood Culture Adult (2) [facility] 10/20 13:21 Order name: AMMONIA [facility] 10/20 14:00 Order name: Lactate w/ 2H reflex if indic. bp 10/20 11:36 Order name: XRAY Chest (1 view); Complete Time: 13:09 [facility] 10/20 11:36 Order name: CT Abd/Pelvis - IV Contrast Only; Complete Time: 13:09 [facility] 10/20 11:36 Order name: EKG; Complete Time: 11:37 [facility] 10/20 11:36 Order name: Cardiac monitoring; Complete Time: 11:43 [facility] 10/20 11:36 Order name: EKG - Nurse/Tech; Complete Time: 11:54 [facility] 10/20 11:36 Order name: IV Saline Lock; Complete Time: 11:54 [facility] 10/20 11:36 Order name: Labs collected and sent; Complete Time: 11:54 [facility] 10/20 11:36 Order name: O2 Per Protocol; Complete Time: 11:43 [facility] 10/20 11:36 Order name: O2 Sat Monitoring; Complete Time: 11:43 [facility] EC:05 Rate is 108 beats/min. Rhythm is regular. QRS [place] is Normal. DC interval is normal. [facility] QRS interval is normal. QT interval is normal. No Q waves. T waves are Normal. No ST changes noted. Clinical impression: Sinus tachycardia and No evidence of ischemia. Interpreted by me. Reviewed by me. Administered Medications: 12:06 Drug: Famotidine IVP 20 mg IVP once; dilute with 10 mL 0.9% NaCl; give over 2 minutes ko1 Route: IVP; Site: left antecubital; 12:21 Follow up: Response: No adverse reaction ko1 14:02 Drug: Piperacillin-Tazobactam IVPB 3.375 grams IVPB once over 60 mins; (mix in NS 100 ko1 mL) Route: IVPB; Infused Over: 60 mins; Site: left antecubital; 15:02 Follow up: Response: No adverse reaction; IV Status: Completed infusion; IV Intake: ko1 100ml 14:02 Drug: NS 0.9% IV (30 ml/kg) 30 ml/kg IV at bolus once; Sepsis Protocol; to be given as ko1 a bolus over 90 minutes Route: IV; Rate: bolus; Site: left antecubital; 15:37 Follow up: Response: No adverse reaction; IV Status: Completed infusion; IV Intake: ko1 1000ml Disposition Summary: 10/20/24 13:38 Transfer Ordered Notes: Transfer Location: [facility] bobby Reason: Higher level of care bobby Condition: Fair bobby Problem: new bobby Symptoms: have improved bobby Accepting Physician: to [facility](10/20/24 15:37) ko1 Diagnosis - Malignant neoplasm of liver, 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 EDMS EDMS 11:37 11:37 CBC+H.LAB.BRZ ordered. EDMS EDMS 11:37 11:37 HEPATIC FUNCTION+C.LAB.BRZ ordered. EDMS EDMS 11:37 11:37 MAGNESIUM+C.LAB.BRZ ordered. EDMS EDMS 11:37 11:37 PROBNP+C.LAB.BRZ ordered. EDMS EDMS 11:37 11:37 PROTIME (+INR)+COAG.LAB.BRZ ordered. EDMS EDMS 11:37 11:37 Troponin High Sensitivity+C.LAB.BRZ ordered. EDMS EDMS 11:37 11:37 LIPASE+C.LAB.BRZ ordered. EDMS EDMS 11:37 11:37 Urinalysis+U.LAB.BRZ ordered. EDMS EDMS 14:10 13:38 to [facility] bobby bobby 14:31 13:38 Epigastric abdominal tenderness bobby bobby 14:31 14:10 to [facility] bobby bobby 15:37 14:31 to [facility] bobby ko1
[2024-10-20] MEDS ORDERED: NA CHLORIDE 0.9% 1,000 ML ONE (13:43)
[2024-10-20] MEDS ORDERED: PIPERACIL/TAZO 3.375 GM VIAL IV ONE (13:43)
[2024-10-20] MEDS ORDERED: NA CHLORIDE 0.9% 100 ML ONE (13:43)
[2024-10-20 17:57] VITALS: TEMP 98.8
[2024-10-20 18:01] VITALS: BP 116/73; O2SAT 96
--- NOTE | 2024-10-23 10:20 | EKG ---
Test Date: 2024-10-20 Test Time: 11:52:02 Steel Detailer: CRIS MEASUREMENT RESULTS: Intervals: Rate: 108 AR: QRSD: 74 QT: 326 QTc: 436 [place]: P: 66 AR: QRS: 13 T: 16 INTERPRETIVE STATEMENTS: Normal sinus rhythm with variable AV block with premature ventricular or aberrantly conducted complexes Possible Anterolateral infarct, age undetermined Abnormal ECG Compared to ECG 10/15/2024 18:44:39 Ventricular premature complex(es) now present Myocardial infarct finding now present ST (T wave) deviation no longer present Electronically Signed On 10-23-24 10:19:51 [employer] by Hector Davila
== END 2024-10-20 15:37 | disposition short-term general hospital (02) ==
LOC: ER 11:28
DX: C22.9 Malignant neoplasm of liver, not specified as primary or secondary (principal); R18.0 Malignant ascites; D72.829 Elevated white blood cell count, unspecified; E87.1 Hypo-osmolality and hyponatremia; R00.0 Tachycardia, unspecified; R10.816 Epigastric abdominal tenderness; Z96.89 Presence of other specified functional implants; I10 Essential (primary) hypertension
CPT/HCPCS: 93005; 87040 ×2; 85025; 80048; 36415; 82140; 83735; 85610; 80076; 83605; 84443; 84484; 83690; 83880; 74177; 71045; Q9967; J2543; J7030; 96365; 96366; 96368; 96375; 99285

== ENCOUNTER 2024-11-03 22:23 | Emergency (ER) | payer OTHER ==
[2024-11-03 23:33] LABS: Basophils % 1.2 % (0-1.3); Eosinophils % 1.5 % (0-4.4); Hemoglobin 10.5 g/dL (12.0-15.0); Lymphocytes % 15.4 % (15.3-44.8); MCH 27.3 pg (27.0-35.0); MCHC 31.9 g/dL (32.0-36.0); MCV 85.6 fL (80-100); MPV 7.5 fL (7.6-11.3); Monocytes % 9.3 % (3.3-12.3); Neutrophils % 72.6 % (41.7-73.7); Platelets 425 thou/uL (152-406); RBC Red Blood Cell Count 3.85 M/uL (3.86-4.86); Red Cell Distribution Width 21.2 % (12.1-15.2)
[2024-11-03 23:34] LABS: Absolute Basophils 0.1 K/uL (0-0.5); Absolute Eosinophils 0.1 K/uL (0-0.5); Absolute Lymphocytes (CBC) 1.3 K/uL (0.7-4.9); Absolute Monocytes 0.8 K/uL (0.1-1.3); Absolute Neutrophil 5.9 K/uL (1.8-8.0); Nucleated Red Blood Cells % 0.1 % (0-0)
[2024-11-03 23:48] LABS: Albumin 2.2 g/dL (3.4-5.0); Albumin/Globulin Ratio 0.5 (1.1-1.8); Anion Gap 6.2 mEq/L (5.0-15.0); Bilirubin Total 0.3 mg/dL (0.2-1.0); Globulin 4.1 g/dL (2.3-3.5); Potassium 4.2 mEq/L (3.5-5.1); Protein, Total 6.3 g/dL (6.4-8.2)
[2024-11-04 01:37] LABS: Anisocytosis 1+; Blood Morphology Comment NOTED (NOT SEEN); Microcytosis 1+; Platelet Estimate ADEQ; White Blood Cell Scan OK (OK)
--- NOTE | 2024-11-04 02:02 | ER ---
Nurse's Notes [facility] Name: Alberta Brown Age: 88 yrs Sex: Female : 1935 Arrival Date: 11/03/2024 Time: 22:23 Bed 8 Private MD: Diagnosis: Pain in left leg;Pain in right leg;Lower extremity edema Presentation: 11/03 22:44 Chief complaint: Patient states: leg cramping and fatigue that started a couple of days bm8 ago. Also reports a piece of apple stuck in her throat. Coronavirus screen: Client denies travel out of the [place] in the last 14 days. At this time, the client does not indicate any symptoms associated with coronavirus-19. Ebola Screen: Patient negative for fever greater than or equal to 101.5 degrees Fahrenheit, and additional compatible Ebola Virus Disease symptoms Patient denies exposure to infectious person. Patient denies travel to an Ebola-affected area in the 21 days before illness onset. No symptoms or risks identified at this time. Initial Sepsis Screen: Does the patient meet any 2 criteria? No. Patient's initial sepsis screen is negative. Does the patient have a suspected source of infection? No. Patient's initial sepsis screen is negative. Risk Assessment: Do you want to hurt yourself or someone else? Patient reports no desire to harm self or others. Onset of symptoms was November 01, 2024. 22:44 Method Of Arrival: Wheelchair bm8 22:44 Acuity: MAYELA 3 bm8 Triage Assessment: 22:46 General: Appears in no apparent distress. uncomfortable, Behavior is calm, cooperative, bm8 appropriate for age. Pain: Denies pain. Historical: - Allergies: 22:46 Chocolate; bm8 22:46 pravastatin; bm8 - Home Meds: 22:46 Eliquis 2.5 mg Oral tablet 1 tab 2 times per day [Active]; furosemide 20 mg Oral tablet bm8 1 tab daily [Active]; sotalol 80 mg Oral tablet 1 tab 2 times per day [Active]; ursodiol 500 mg Oral tablet 1 tab 2 times per day [Active]; - PMHx: 22:46 BILE DUCT CANCER (Hypertension); Hypertension; bm8 - PSHx: 22:46 Appendectomy; duct stent; bm8 - Immunization history:: Adult Immunizations up to date. - Infectious Disease History:: Denies. - Social history:: Smoking status: Patient denies any tobacco usage or history of. Screenin:56 [facility] ED Fall Risk Assessment (Adult) History of falling in the last 3 months, dd2 including since admission Yes- single mechanical fall (1 pt) Confusion or Disorientation No (0 pts) Intoxicated or Sedated No (0 pts) Impaired Gait No (0 pts) Mobility Assist Device Used Yes (1 pt) Altered Elimination Yes (1 pt) Score/Fall Risk Level 3 or more points = High Risk Oriented to surroundings, Maintained a safe environment, Educated pt \T\ family on fall prevention, incl call for assistance when getting out of bed, Assessed \T\ reinforced patient's understanding of fall precautions, Provided non-skid footwear, Hourly rounding (assess needs \T\ fall precautionary measures) done, Used ambulatory aids as needed (educated on \T\ assisted with), Used gait belt as appropriate. Abuse screen: Denies threats or abuse. Nutritional screening: No deficits noted. Tuberculosis screening: No symptoms or risk factors identified. Assessment: 22:56 General: Appears uncomfortable, Behavior is calm, cooperative, appropriate for age. dd2 Pain: Complains of pain in right leg and left leg Pain does not radiate. Pain currently is 4 out of 10 on a pain scale. Neuro: Level of Consciousness is awake, alert, obeys commands, Oriented to person, place, time, situation, Appropriate for age. Cardiovascular: Denies chest pain, Patient's skin is warm and dry. Respiratory: Airway is patent Respiratory effort is even, unlabored, Respiratory pattern is regular, symmetrical. GI: Abdomen is round distended, noted to have ascites, Bowel sounds present X 4 quads. Abd is non tender. : No deficits noted. No signs and/or symptoms were reported regarding the genitourinary system. EENT: No deficits noted. No signs and/or symptoms were reported regarding the EENT system. Derm: Skin is jaundiced, EDEMA BLE. Musculoskeletal: Circulation, motion, and sensation intact. Range of motion: intact in all extremities. Vital Signs: 22:44 BP 153 / 89; Pulse 93; Resp 18; Temp 98.4; Pulse Ox 98% ; Weight 57.15 kg; bm8 23:30 BP 146 / 82; Pulse 92; Resp 18; Pulse Ox 98% on R/A; br2 23:30 BP 120 / 76; Pulse 91; Resp 18 S; Pulse Ox 97% on R/A; br2 12 00:35 BP 120 / 76; Pulse 90; Resp 15; Pulse Ox 97% on R/A; dd2 02:00 BP 141 / 81; Pulse 91; Resp 16; Temp 98.2; Pulse Ox 98% ; dd2 [place] Coma Score: 11/03 22:56 Eye Response: spontaneous(4). Motor Response: obeys commands(6). Verbal Response: dd2 oriented(5). Total: 15. ED Course: 22:26 Patient arrived in ED. ra3 22:28 Julio Cesar Tse DO is Attending Physician. ms3 22:39 Betzy Mora, RN is Primary Nurse. br2 22:46 Triage completed. bm8 22:46 Arm band placed on right wrist. Patient placed in waiting room. bm8 22:56 Patient has correct armband on for positive identification. Bed in low position. Call dd2 light in reach. Side rails up X2. Provided Education on: LABS/RADIOLOGY. Client placed on continuous cardiac and pulse oximetry monitoring. NIBP monitoring applied. Door closed. Noise minimized. Warm blanket given. Pillow given. Verbal reassurance given. 22:56 No provider procedures requiring assistance completed. Inserted saline lock: 22 gauge dd2 in left forearm, using aseptic technique. Blood collected. Flushed with 10 mL NS. Patient maintains SpO2 saturation greater than 95% on room air. 23:04 CXR XRAY In Process Unspecified. EDMS 11/04 00:56 Extrem Venous W Compression Zackery US In Process Unspecified. EDMS 02:01 Callum Ayon DO is Referral Physician. ms3 02:24 IV discontinued, intact, bleeding controlled, No redness/swelling at site. Pressure dd2 dressing applied. Administered Medications: No medications were administered Medication: 11/03 22:56 VIS not applicable for this client. dd2 Outcome: 11/04 02:01 Discharge ordered by . ms3 02:24 Discharged to home via wheelchair, with significant other, dd2 02:24 Condition: stable 02:24 Discharge instructions given to patient, significant other, Instructed on discharge instructions, follow up and referral plans. medication usage, Demonstrated understanding of instructions, follow-up care, medications, 02:24 Patient left the ED. dd2 Signatures: Dispatcher [employer] EDMS Julio Cesar Tse DO DO ms3 Gretchen Ma ra3 Fermín Abad, RN RN bm8 Betzy Mora RN RN br2 ALISON ZAMORA RN RN dd2 Corrections: (The following items were deleted from the chart) 00:52 00:50 BP 146 / 82; Pulse 92bpm; Resp 18bpm; Pulse Ox 98% RA; br2 br2
--- NOTE | 2024-11-04 02:02 | EDPHYS ---
Physician Documentation [facility] Name: Alberta Brown Age: 88 yrs Sex: Female : 1935 Arrival Date: 11/03/2024 Time: 22:23 Bed 8 Private MD: ED Physician Julio Cesar Tse HPI: 11/03 22:47 This 88 yrs old Female presents to ER via Wheelchair with complaints of Leg cramping ms3 fatigue. 22:47 Alberta Brown, an 88-year-old female, presents to the emergency department with complaints ms3 of fatigue and cramping, particularly in the legs, that have been present for a couple of days. She reports increased swelling in the legs more than her usual baseline. She is concerned about low potassium levels due to her medication regimen, which includes the use of diuretics. She has a history of being treated for bile duct cancer at [facility]. Patient's states they are trying to get records moved to [place]. . Historical: - Allergies: 22:46 Chocolate; bm8 22:46 pravastatin; bm8 - Home Meds: 22:46 Eliquis 2.5 mg Oral tablet 1 tab 2 times per day [Active]; furosemide 20 mg Oral tablet bm8 1 tab daily [Active]; sotalol 80 mg Oral tablet 1 tab 2 times per day [Active]; ursodiol 500 mg Oral tablet 1 tab 2 times per day [Active]; - PMHx: 22:46 BILE DUCT CANCER (Hypertension); Hypertension; bm8 - PSHx: 22:46 Appendectomy; duct stent; bm8 - Immunization history:: Adult Immunizations up to date. - Infectious Disease History:: Denies. - Social history:: Smoking status: Patient denies any tobacco usage or history of. ROS: 22:47 Cardiovascular: Negative for chest pain, and palpitations. Respiratory: Negative for ms3 shortness of breath, cough, wheezing, and pleuritic chest pain, Abdomen/GI: Negative for abdominal pain, nausea, vomiting, diarrhea, and constipation, MS/Extremity: Negative for injury and deformity, 22:47 Constitutional: Positive for fatigue, Exam: 22:47 Constitutional: This is a well developed, well nourished patient who is awake, alert, ms3 and in no acute distress. Head/Face: Normocephalic, atraumatic. Cardiovascular: Regular rate and rhythm with a normal S1 and S2. No gallops, murmurs, or rubs. Normal PMI, no JVD. No pulse deficits. Respiratory: Lungs have equal breath sounds bilaterally, clear to auscultation and percussion. No rales, rhonchi or wheezes noted. No increased work of breathing, no retractions or nasal flaring. Abdomen/GI: Soft, non-tender, with normal bowel sounds. No distension or tympany. No guarding or rebound. No evidence of tenderness throughout. 22:47 Musculoskeletal/extremity: Extremities: Bilateral lower extremity swelling. Vital Signs: 22:44 BP 153 / 89; Pulse 93; Resp 18; Temp 98.4; Pulse Ox 98% ; Weight 57.15 kg; bm8 23:30 BP 146 / 82; Pulse 92; Resp 18; Pulse Ox 98% on R/A; br2 23:30 BP 120 / 76; Pulse 91; Resp 18 S; Pulse Ox 97% on R/A; br2 11/04 00:35 BP 120 / 76; Pulse 90; Resp 15; Pulse Ox 97% on R/A; dd2 02:00 BP 141 / 81; Pulse 91; Resp 16; Temp 98.2; Pulse Ox 98% ; dd2 [place] Coma Score: 12 22:56 Eye Response: spontaneous(4). Motor Response: obeys commands(6). Verbal Response: dd2 oriented(5). Total: 15. MDM: 22:47 Medical Screening Exam initiated ms3 11/04 02:02 Differential diagnosis: Hypoalbuminemia vs Pedal Edema vs Hypokalemia. Data reviewed: ms3 vital signs, nurses notes, lab test result(s), radiologic studies, and as a result, I will discharge patient. Historians other than the Patient: Spouse/Significant Other: Patient's . Counseling: I had a detailed discussion with the patient and/or guardian regarding the historical points, exam findings, and any diagnostic results supporting the discharge/admit diagnosis, lab results, radiology results, the need for outpatient follow up, to return to the emergency department if symptoms worsen or persist or if there are any questions or concerns that arise at home. Special discussion: I discussed with the patient/guardian in detail that at this point there is no indication for admission to the hospital. It is understood, however, that if the symptoms persist or worsen the patient needs to return immediately for re-evaluation. ED course: Discussed labs and imaging with patient and her . Patient to follow-up with primary care physician in 2 to 3 days. Patient and her understand and agree with plan. All questions were answered. Return precautions discussed include worsening symptoms, or any other concerns. On reevaluation patient symptoms improved, patient is alert, no apparent distress, nontoxic-appearing, speaking full sentences.. 11/03 22:46 Order name: CBC with Diff; Complete Time: 01:38 ms3 11/03 22:46 Order name: CMP; Complete Time: 00:03 ms3 11/03 23:36 Order name: CBC Smear Scan; Complete Time: :38 EDMS 11/03 22:47 Order name: CXR XRAY ms3 11/04 00:05 Order name: Extrem Venous W Compression Zackery US ms3 Administered Medications: No medications were administered Disposition Summary: 11/04/24 02:01 Discharge Ordered Notes: Location: Home ms3 Condition: Stable ms3 Diagnosis - Pain in left leg ms3 - Pain in right leg ms3 - Lower extremity edema ms3 Followup: ms3 - With: Callum Ayon DO - When: 2 - 3 days - Reason: Recheck today's complaints Discharge Instructions: - Discharge Summary Sheet ms3 - Musculoskeletal Pain ms3 - Peripheral Edema ms3 Forms: - Medication Reconciliation Form ms3 - Antibiotic Education ms3 - Prescription Opioid Use ms3 - Patient Portal Instructions ms3 - Leadership Thank You Letter ms3 Signatures: Dispatcher [employer] EDJulio Cesar Pacheco DO DO ms3 Fermín Abad, RN RN bm8 Corrections: (The following items were deleted from the chart) 11/03 22:46 22:46 CBC+H.LAB.BRZ ordered. EDMS EDMS 22:46 22:46 COMPREHENSIVE METABOLIC PANEL+C.LAB.BRZ ordered. EDMS EDMS 11/04 00:05 00:05 Extrem Venous W Compression Zackery+US.RAD.BRZ ordered. EDMS EDMS
--- NOTE | 2024-11-04 02:10 | RAD REPORT ---
EXAMINATION: US EXTREMITY VEINS BILATERAL INDICATION: Female, 88 years old, PAIN COMPARISON(S): 10/08/2024 (report only available at the time of dictation) TECHNIQUE: Sonographic imaging of the bilateral lower extremities. FINDINGS: Normal flow and compressibility in the common femoral, greater saphenous, femoral, popliteal, and pos terior tibial veins. No intraluminal thrombus is visualized. Visualized waveforms demonstrate normal respiratory variability. IMPRESSION: No sonographic evidence of deep venous thrombosis in the imaged bilateral lower extremities. Electronically signed by: Hardik Engel MD 11/04/2024 01:46 AM [facility] Due to temporary technical issues with the PACS/Pix[employer] scribe reporting system, reports are being sign ed by the in-house radiologist without review as a courtesy to ensure prompt reporting the interpreting rad iologist is fully responsible for the content of the report. Transcribed Date/Time: 11/04/2024 2:10 AM
[2024-11-04 02:33] VITALS: TEMP 98.4
[2024-11-04 02:35] VITALS: BP 120/76; O2SAT 97
--- NOTE | 2024-11-04 05:21 | RAD REPORT ---
EXAM: XR Chest, 1 View CLINICAL HISTORY: Fatigue. TECHNIQUE: Frontal view of the chest. COMPARISON: XR Chest 10/20/2024. FINDINGS: Lungs: Coarsened interstitial markings. No focal consolidation. Pleural space: Unremarkable. No pneumothorax. Heart: Unremarkable. No cardiomegaly. Mediastinum: Unremarkable. Normal mediastinal contour. Bones/joints: Mild multilevel spondylosis. Right glenohumeral osteochondral bodies. No acute frac ture. Vasculature: Thoracic aortic atherosclerosis. IMPRESSION: No acute disease. Electronically signed by: Hayden Shi MD 11/03/2024 11:59 PM [facility] Due to temporary technical issues with the PACS/[employer] reporting system, reports are being yumiko d by the in-house radiologist without review as a courtesy to ensure prompt reporting the interpreting radiologist is fully responsible for the content of the report. Transcribed Date/Time: 11/04/2024 5:21 AM
== END 2024-11-04 02:24 | disposition home or self-care (01) ==
LOC: ER 22:23
DX: M79.605 Pain in left leg (principal); M79.604 Pain in right leg; R60.0 Localized edema; R53.83 Other fatigue; I10 Essential (primary) hypertension; Z85.89 Personal history of malignant neoplasm of other organs and systems; Z79.01 Long term (current) use of anticoagulants
CPT/HCPCS: 36415; 71045; 80053; 85025; 93970; 99284

== ENCOUNTER 2024-11-10 22:17 | Inpatient (IN) | payer OTHER ==
[2024-11-10] MEDS ORDERED: VANCOMYCIN 1 GM/VIAL ONE (23:12)
[2024-11-10] MEDS ORDERED: ONDANSETRON 4 MG/2 ML VIAL ONE (23:12)
[2024-11-10] MEDS ORDERED: CEFEPIME 2 GM VIAL ONE (23:13)
[2024-11-10] MEDS ORDERED: methocarbamoL 750 MG TAB ONE (23:13)
[2024-11-10] MEDS ORDERED: IBUPROFEN 200 MG TAB PO ONE (23:13)
[2024-11-10] MEDS ORDERED: NA CHLORIDE 0.9% 250 ML ONE (23:13)
[2024-11-10] MEDS ORDERED: NA CHLORIDE 0.9% 100 ML ONE (23:14)
[2024-11-10] MEDS ORDERED: NA CHLORIDE 0.9% 500 ML ONE (23:14)
[2024-11-10] MEDS ORDERED: ALBUMIN HUMAN 25% 100 ML IV ONE (23:15)
[2024-11-10 23:52] LABS: Hematocrit 31.8 % (36.0-45.0); Platelets 306 thou/uL (152-406)
[2024-11-10 23:53] LABS: PT Prothrombin Time 12.8 SECONDS (9.4-12.5); PTT, Activated Partial Thromb 31.6 SECONDS (24.3-36.9); Protime INR 1.15
[2024-11-10 23:57] LABS: Absolute Basophils 0.1 K/uL (0-0.5); Absolute Lymphocytes (CBC) 1.4 K/uL (0.7-4.9); Absolute Monocytes 0.6 K/uL (0.1-1.3); Absolute Neutrophil 8.1 K/uL (1.8-8.0); Basophils % 0.8 % (0-1.3); Eosinophils % 0.3 % (0-4.4); Hemoglobin 10.6 g/dL (12.0-15.0); Lymphocytes % 14.2 % (15.3-44.8); MCH 28.2 pg (27.0-35.0); MCHC 33.2 g/dL (32.0-36.0); MCV 84.8 fL (80-100); MPV 7.8 fL (7.6-11.3); Monocytes % 6.1 % (3.3-12.3); Neutrophils % 78.6 % (41.7-73.7); Nucleated Red Blood Cells % 0.1 % (0-0); RBC Red Blood Cell Count 3.75 M/uL (3.86-4.86); Red Cell Distribution Width 20.4 % (12.1-15.2)
[2024-11-11 00:08] LABS: Albumin 3.2 g/dL (3.4-5.0); Albumin/Globulin Ratio 0.8 (1.1-1.8); Anion Gap 8.7 mEq/L (5.0-15.0); Bilirubin Direct 0.4 mg/dL (0-0.2); Bilirubin Indirect, Calculated 0.5 mg/dL (0.2-0.8); Bilirubin Total 0.9 mg/dL (0.2-1.0); C-Reactive Protein 37.2 mg/L (<3.00); Globulin 3.9 g/dL (2.3-3.5); Protein, Total 7.1 g/dL (6.4-8.2); Troponin High Sensitivity 24.3 pg/mL (<58.9)
[2024-11-11 00:10] LABS: Renal Epithelial <5 /HPF (None Seen); Specific Gravity 1.011 (1.005-1.030); Sqamous Epithelial <5 /HPF (None Seen); Urine Bacteria <20 /HPF (<20); Urine Bilirubin NEGATIVE (Negative); Urine Blood Negative (Negative); Urine Clarity Extremely Turbid (Clear); Urine Color Light-Yellow (Yellow); Urine Culture Reflex Order REFLEXED; Urine Glucose NEGATIVE (Negative); Urine Ketones NEGATIVE (Negative); Urine Micro Reflex YN NO BILL MICROSCOPIC; Urine Nitrite NEGATIVE (Negative); Urine Protein NEGATIVE (Negative); Urine RBC <5 /HPF (None Seen); Urine Urobilinogen Normal (Normal); Urine pH 7.5 (5.0-7.0)
[2024-11-11 00:14] LABS: Magnesium 1.7 mg/dL (1.6-2.4); Potassium 3.7 mEq/L (3.5-5.1)
[2024-11-11 00:22] LABS: SARS-CoV-2 Antigen CONTROL BLUE LINE VIS/BG OK; SARS-CoV-2 Antigen Rapid Res Negative (Negative)
[2024-11-11] MEDS ORDERED: NA CHLORIDE 0.9% 1,000 ML ONE (01:03)
[2024-11-11 02:50] LABS: Anisocytosis 1+; Blood Morphology Comment NOTED (NOT SEEN); Microcytosis 1+; Platelet Estimate ADEQ; White Blood Cell Scan OK (OK)
--- NOTE | 2024-11-11 04:11 | EDPHYS ---
Physician Documentation [facility] Name: Alberta Brown Age: 88 yrs Sex: Female : 1935 Arrival Date: 11/10/2024 Time: 22:17 Bed 17 Private MD: ED Physician Bonifacio Richardson HPI: 11/10 22:22 This 88 yrs old Female presents to ER via Unassigned with complaints of sp4 Fever, Constipation, PT had paracentesis today and has been shaking/shivering since.. 11/11 03:57 88-year-old female with history of biliary cancer presents with acute fever chills and sp4 generalized weakness. Belch and also reported constipation. Patient had paracentesis done at [facility] today and 4 L of fluid was evacuated. Patient denied shortness of breath or dysuria.. 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 [address] also placed biliary stents. Additional history of ascites, chronic edema, venous stasis, hyponatremia, cholangiocarcinoma, diarrhea, chronic anemia. Patient's home medications include also Olayinka 500 mg p.o. twice daily, apixaban 2.5 mg p.o. twice daily, cholecalciferol 1 tab daily, docusate 100 mg daily, fexofenadine 100 mg daily. Multivitamin daily furosemide 20 mg p.o. twice daily.. Historical: - Allergies: 11/10 22:35 Chocolate; me1 22:35 pravastatin; me1 - PMHx: 22:35 BILE DUCT CANCER (Hypertension); Hypertension; me1 - PSHx: 22:35 Appendectomy; duct stent; me1 - Immunization history:: Adult Immunizations up to date. - Infectious Disease History:: Denies. - Social history:: Smoking status: Patient denies any tobacco usage or history of. - Family history:: not pertinent. ROS: 11/11 03:57 Constitutional: Positive for fever chills and generalized weakness. sp4 All other systems are negative, Exam: 03:57 Constitutional: Patient is frail elderly female with signs of physical debility. sp4 Generalized weakness, febrile on arrival 100.3 Head/Face: Normocephalic, atraumatic. Eyes: Pupils equal round and reactive to light, extra-ocular motions intact. Lids and lashes normal. Conjunctiva and sclera are not injected. Cornea within normal limits. Periorbital areas with no swelling, redness, or edema. ENT: Nares patent. No nasal discharge, no septal abnormalities noted. Tympanic membranes are normal and external auditory canals are clear. Oropharynx with no redness, swelling, or masses, exudates, or evidence of obstruction, uvula midline. Mucous membranes moist. Neck: Trachea midline, no thyromegaly or masses palpated, and no cervical lymphadenopathy. Supple, full range of motion without nuchal rigidity, or vertebral point tenderness. Chest/axilla: Normal chest wall appearance and motion. Nontender with no deformity. No lesions are appreciated. Cardiovascular: Regular rate and rhythm with a normal S1 and S2. No gallops, murmurs, or rubs. Normal PMI, no JVD. No pulse deficits. Respiratory: Lungs have equal breath sounds bilaterally, clear to auscultation and percussion. No rales, rhonchi or wheezes noted. No increased work of breathing, no retractions or nasal flaring. Abdomen/GI: Soft, with normal bowel sounds. No distension or tympany. No guarding or rebound. No evidence of tenderness throughout. Positive small amount of ascites on exam with protuberant abdomen. Dressing abdominal left lower quadrant from recent paracentesis Back: No spinal tenderness. No costovertebral tenderness. Female : Normal external genitalia. Skin: Warm, dry with normal turgor. Normal color with no rashes, no lesions, and no evidence of cellulitis. MS/ Extremity: Pulses equal, no cyanosis. Neurovascular intact. Full, normal range of motion. Neuro: Awake and alert, GCS 15, oriented to person, place, time, and situation. Cranial nerves II-XII grossly intact. Motor strength 5/5 in all extremities. Sensory grossly intact. 03:57 ECG was reviewed by the Attending Physician. EKG at 2301 sinus tachycardia with premature atrial complexes otherwise significant artifact that obscures the baseline. Vital Signs: 11/10 22:33 BP 172 / 90; Pulse 124; Resp 20; Temp 99.5; Pulse Ox 100% ; Weight 57.15 kg; Height 5 me1 ft. 3 in. ; Pain 0/10; 22:50 BP 156 / 77; Pulse 118; Resp 18; Pulse Ox 98% ; kj2 11/11 00:00 BP 121 / 57; Pulse 105; Resp 18; Pulse Ox 94% on R/A; kj2 00:58 BP 108 / 50; Pulse 108; Resp 18; Pulse Ox 94% ; kj2 02:06 BP 104 / 53; Pulse 98; Resp 16; Pulse Ox 95% on R/A; kj2 03:05 BP 98 / 58; Pulse 90; Resp 18; Pulse Ox 99% on R/A; kj2 04:50 Temp 97.9; kj2 04:52 BP 93 / 60; Pulse 96; Resp 16; Pulse Ox 97% ; kj2 06:02 BP 98 / 59; Pulse 92; Resp 18; Temp 98(O); Pulse Ox 100% ; kj2 11/10 22:33 Body Mass Index 22.32 (57.15 kg, 160.02 cm) me1 11/10 22:33 Pain Scale: Adult [facility] MDM: 11/10 22:24 Medical Screening Exam initiated sp4 11/11 03:49 ED course: EXAM DESCRIPTION: CT CHESTABDOMEN PELVIS WITHOUT IV CONTRAST 11/11/2024 2:59 sp4 AM [facility] CLINICAL HISTORY: 88 years, Female, Chest pain. COMPARISON: CTAbdomen Pelvis 10/20/[address] Chest Abdomen Pelvis 08/01/2024. PROCEDURE: Axial images through the chest, abdomen and pelvis were generated utilizing 2 mm slice thickness at 2 mm interval reconstruction without the administration of IV contrast. In addition multiplanar reformats in the coronal and sagittal plane were obtained and reviewed. An individualized dose optimization technique, Automated Exposure Control, was utilized for the performed procedure. FINDINGS: CHEST: Lower neck: Visualized thyroid gland and soft tissues are normal. No adenopathy. Lungs: The lung parenchyma demonstrate tiny tree-in-bud nodularity is within the superior aspect of the right middle lobe on axial image 27/123-30/123. Very minimal compressive atelectatic changes bilateral posterior CP angles No significant pulmonary nodules and/or masses identified. No focal areas of consolidation. Airways: The trachea mainstem bronchus demonstrate to be unremarkable. Pleural: There are no pleural effusion. No evidence for pneumothorax. Hemidiaphragms are normally positioned. Mediastinum and lymph nodes: No significant mediastinal and/or hilar lymphadenopathy. The axillary regions demonstrate to be clear. Heart: Normal size. No pericardial thickening or effusion. Coronary: Mild coronary calcification. Aorta: There is mild intimal aortic arch calcification Pulmonary arteries: The pulmonary arteries were not evaluated due to lack of IV contrast. Osseous structures and chest wall: There is diffuse bony osteopenia. Questionable small superior compression deformity at the T12 and L1. There are degenerative changes right glenohumeral joint with the loose body inferior aspect of the glenoid//humeral head. ABDOMEN AND PELVIS: Liver: The unopacified liver again demonstrated presence of the internal biliary stents in place with left side into the intrahepatic biliary system unchanged in comparison. Gallbladder: The gallbladder demonstrate to be distended with no significant filling defects common changed in comparison. Adrenal glands: Grossly the unopacified adrenal glands demonstrate to be unremarkable. Pancreas: Grossly the unopacified pancreas demonstrate to be unremarkable. Spleen: Grossly the unopacified spleen demonstrate to be unremarkable. Kidneys: The kidneys demonstrate normal uptake of contrast media. Grossly the unopacified kidneys demonstrate to be within normal limits. There is no evidence for nephrolithiasis and/or hydronephrosis. GI: Grossly the unopacified stomach, small bowel and large bowel demonstrate to be within normal limits. No evidence for bowel dilatation and/or free air. The appendix was not visualized. The large bowel demonstrate presence of mild fecal residue suggesting the possibility of fecal stasis. : The urinary bladder demonstrate to be unremarkable. Genitalia: The uterus demonstrate to be within normal limits. There are normal adnexal structures. Abdominal aorta: The aorta demonstrated presence of minimal atherosclerotic disease extending into the aortic bifurcation and iliac arteries. Retroperitoneum:There is no retroperitoneal lymphadenopathy. There is small amount of ascites. Bones: There is diffuse bony osteopenia. There is small superior plate compression deformity at L1. Soft tissues: There is minimal haziness within the skin/subcutaneous tissue suggesting edema/early anasarca. IMPRESSION: Tiny tree-in-bud nodularity within the superior aspect of the right middle lobe suggesting infectious or inflammatory process. Diffuse bony osteopenia with minimal superior compression deformity at the T12 and L1 levels. Final Radiology Report Small amount of ascites. Internal biliary stents in place with left side into the intrahepatic biliary system. Mild fecal residue within the large bowel suggesting the possibility of fecal stasis. Minimal haziness within the skin/subcutaneous tissue suggesting edema/early anasarca. No significant interval change. Electronically signed by: Zeus Serrano MD 11/11/2024 03:22 AM [facility] RP IMPRESSION: Tiny tree-in-bud nodularity within the superior aspect of the right middle lobe suggesting infectious or inflammatory process. Diffuse bony osteopenia with minimal superior compression deformity at the T12 and L1 levels. . ED course: EXAM DESCRIPTION: CT HEAD WITHOUT IV CONTRAST 11/11/2024 2:58 AM [facility] CLINICAL HISTORY: 88 years, Female, Confused. COMPARISON: CT Head 08/25/2024. FINDINGS: Multiple transaxial tomograms of the brain were obtained from the base of the skull to the vertex without contrast. An individualized dose optimization technique, Automated Exposure Control, was utilized for the performed procedure. Brain: The brain demonstrate prominence of the sulci and gyri corresponding to mild brain atrophy. There No acute intracranial hemorrhage. No midline shift and/or mass effect. Ventricles: Lateral ventricles and cisterns displace normal appearance. Vasculature: No visualized abnormalities in the arteries or dural venous sinuses. Scalp/skull: The calvarium demonstrate to be intact with no evidence for acute bony injuries. Sinuses: The visualized paranasal sinuses and mastoid air cells demonstrate to be clear. Orbits: No significant abnormalities in the visualized orbital structures. IMPRESSION: No acute intracranial hemorrhage. Mild brain atrophy. . 04:07 Differential diagnosis: viral Infection, bacterial infection, UTI, gastroenteritis. sp4 Data reviewed: vital signs, nurses notes, lab test result(s), EKG, radiologic studies, CT scan. Consideration of Admission/Observation Patient was admitted/placed on observation. Escalation of care including admission/observation considered. Management of patient was discussed with the following: Hospitalist: Akin BROCK . ED course: Patient found to have relatively small size pneumonia right lower lobe. Right anterior pneumonia. Patient warrants admission for further management including IV fluids for hyponatremia.. 11/10 22:23 Order name: Basic Metabolic Panel; Complete Time: 00:22 sp4 11/10 22:23 Order name: CBC with Diff; Complete Time: 03:52 sp4 11/10 22:23 Order name: LFT's; Complete Time: 00:22 sp4 11/10 22:23 Order name: Magnesium; Complete Time: 00:22 sp4 11/10 22:23 Order name: NT PRO-BNP; Complete Time: 00:22 sp4 11/10 22:23 Order name: PT-INR; Complete Time: 00:10 sp4 11/10 22:23 Order name: Troponin HS; Complete Time: 00:22 sp4 11/10 22:24 Order name: Influenza Screen (a \T\ B); Complete Time: 00:22 sp4 11/10 22:24 Order name: Blood Culture Adult (2) sp4 11/10 22:24 Order name: CRP; Complete Time: 00:22 sp4 11/10 22:24 Order name: AMMONIA; Complete Time: 00:10 sp4 11/10 22:24 Order name: Lactate w/ 2H reflex if indic.; Complete Time: 00:22 sp4 11/10 22:55 Order name: SARS RAPID; Complete Time: 00:22 sp4 11/10 22:55 Order name: Urinalysis W/Microscopic; Complete Time: 00:22 sp4 11/10 23:42 Order name: PTT, Activated Partial Thromb; Complete Time: 00:10 EDVA 11/11 00:16 Order name: Urine Culture EDVA 11/11 00:23 Order name: Ghost Lactate-NO COLLECT Timer; Complete Time: 03:52 EDMS 11/11 00:23 Order name: CBC Smear Scan; Complete Time: 03:52 EDMS 11/11 04:53 Order name: Lactate w/ 2H reflex if indic. EDMS 11/11 04:53 Order name: Magnesium EDMS 11/11 04:53 Order name: Phosphorus EDMS 11/11 04:53 Order name: Urinalysis w/ reflexes EDMS 11/11 04:54 Order name: Basic Metabolic Panel EDMS 11/11 04:54 Order name: Basic Metabolic Panel EDMS 11/11 04:54 Order name: CBC with Automated Diff EDMS 11/11 04:54 Order name: CBC with Automated Diff EDMS 11/11 05:17 Order name: Respiratory Syncytial Virus Ag EDMS 11/11 05:22 Order name: Procalcitonin EDMS 11/11 00:52 Order name: CT Chest Abdomen Pelvis W/O Contrast sp4 11/11 00:53 Order name: CT Head Brain wo Cont sp4 11/11 05:14 Order name: Occupational Therapy Consult EDMS 11/11 05:14 Order name: Physical Therapy Consult EDVA 11/10 22:23 Order name: Cardiac monitoring; Complete Time: 23:57 sp4 11/10 22:23 Order name: EKG - Nurse/Tech sp4 11/10 22:23 Order name: IV Saline Lock; Complete Time: 23:57 sp4 11/10 22:23 Order name: Labs collected and sent; Complete Time: 23:57 sp4 11/10 22:23 Order name: O2 Per Protocol; Complete Time: 23:57 sp4 11/10 22:23 Order name: O2 Sat Monitoring; Complete Time: 23:57 sp4 11/10 22:55 Order name: Guillen sp4 EC/20 23:01 Rate is 120 beats/min. Rhythm is regular, Sinus tachycardia with PACs. QRS [place] is sp4 Normal. NE interval is normal. No ST changes noted. Clinical impression: No evidence of ischemia. Interpreted by me. Reviewed by me. Administered Medications: 23:05 Drug: NS 0.9% IV 500 ml 500 ml IV at 1 bolus once; to be given as a bolus over 30 kj2 minutes Volume: 500 ml; Route: IV; Rate: 1 bolus; Site: left antecubital; 23:05 Drug: Cefepime IVPB 2 grams IVPB at 200 ml/hr once over 30 mins; (mix in NS 100 mL) kj2 Route: IVPB; Rate: 200 ml/hr; Infused Over: 30 mins; Site: left antecubital; 23:35 Follow up: IV Status: Completed infusion; IV Intake: 100ml kj2 23:10 Drug: Ondansetron IVP 4 mg IVP once; over 2 minutes Route: IVP; Site: left antecubital; kj2 11/11 00:41 Follow up: Response: No adverse reaction 2 11/10 23:15 Drug: Ibuprofen PO 600 mg PO once Route: PO; kj2 11/11 00:41 Follow up: Response: No adverse reaction 2 11/10 23:54 Drug: Methocarbamol PO 750 mg PO once Route: PO; kj2 11/11 00:30 Follow up: Response: No adverse reaction; Marked relief of symptoms 2 11/10 23:55 Drug: vancoMYCIN IVPB 1 grams IVPB once over 2 hrs Route: IVPB; Infused Over: 2 hrs; kj2 Site: left antecubital; 23:57 Drug: Albumin IVPB 25 grams 100 ml IVPB once; (Note: Albumin 25% concentration) Volume: kj2 100 ml; Route: IVPB; Site: left antecubital; 11/11 00:30 Drug: NS 0.9% IV 1000 ml IV at 75 ml/hr Per protocol; to be given as a bolus over 60 kj2 minutes Route: IV; Rate: 75 ml/hr; Site: left antecubital; 06:07 Follow up: IV Status: Infusion continued upon admission kj2 Disposition Summary: 11/11/24 04:11 Hospitalization Ordered Notes: Hospitalization Status: Inpatient Admission sp4 Provider: Prince osvaldo Gerardo Location: Telemetry/MedSur (Inpatient) sp4 Condition: Stable sp4 Problem: new sp4 Symptoms: have improved sp4 Bed/Room Type: Standard sp4 Room Assignment: [facility](11/11/24 04:38) [facility] Diagnosis - Acute right lower lung pneumonia, acute febrile illness, generalized weakness, sp4 physical debility, history of cholangiocarcinoma, acute hyponatremia Forms: - Medication Reconciliation Form sp4 - SBAR form sp4 - Leadership Thank You Letter sp4 Signatures: Dispatcher [employer] Bonifacio Blunt MD MD sp4 Yvette Santa, BACILIO RN me1 Flavia Avila [facility] Darcy Cheng RN RN kj2 Corrections: (The following items were deleted from the chart) 11/10 22:24 22:24 BASIC METABOLIC PANEL+C.LAB.BRZ ordered. EDMS EDMS 22:24 22:24 CBC+H.LAB.BRZ ordered. EDMS EDMS 22:24 22:24 HEPATIC FUNCTION+C.LAB.BRZ ordered. EDMS EDMS 22:24 22:24 MAGNESIUM+C.LAB.BRZ ordered. EDMS EDMS 22:24 22:24 PROBNP+C.LAB.BRZ ordered. EDMS EDMS 22:24 22:24 PROTIME (+INR)+COAG.LAB.BRZ ordered. EDMS EDMS 22:24 22:24 Troponin High Sensitivity+C.LAB.BRZ ordered. EDMS EDMS 22:24 22:24 Chest Single View+RAD.RAD.BRZ ordered. EDMS EDMS 22:24 22:24 Influenza Screen (A \T\ B)+BA.LAB.BRZ ordered. EDMS EDMS 22:24 22:24 BLOOD CULTURE*+BA.LAB.BRZ ordered. EDMS EDMS 22:24 22:24 C-REACTIVE PROTEIN+C.LAB.BRZ ordered. EDMS EDMS 22:24 22:24 AMMONIA+C.LAB.BRZ ordered. EDMS EDMS 22:55 22:55 SARS-COV-2 Antigen Rapid+I.LAB.BRZ ordered. EDMS EDMS 23:42 22:24 PTT, ACTIVATED+COAG.LAB.BRZ ordered. EDMS EDMS 11/11 00:53 00:53 Head Brain Wo Cont+CT.RAD.BRZ ordered. EDMS EDMS 04:38 04:11 sp4 kmf
--- NOTE | 2024-11-11 04:11 | ER ---
Nurse's Notes [facility] Name: Alberta Brown Age: 88 yrs Sex: Female : 1935 Arrival Date: 11/10/2024 Time: 22:17 Bed 17 Private MD: Diagnosis: Acute right lower lung pneumonia, acute febrile illness, generalized weakness, physical debility, history of cholangiocarcinoma, acute hyponatremia Presentation: 11/10 22:33 Chief complaint: Spouse and/or significant other states: paracentesis in [facility] me1 today. This evening patient started running a fever and c/o nausea and constipation. 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 Coronavirus screen: Vaccine status: Patient reports receiving the 2nd dose of the covid vaccine. Ebola Screen: No symptoms or risks identified at this time. Risk Assessment: Do you want to hurt yourself or someone else? Patient reports no desire to harm self or others. Onset of symptoms was November 10, 2024 at 19:30. 22:33 Method Of Arrival: Wheelchair ut1 22:33 Acuity: MAYELA 3 me1 11/11 01:00 Initial Sepsis Screen: Does the patient have a suspected source of infection? No. kj2 Patient's initial sepsis screen is negative. 01:01 Initial Sepsis Screen: Does the patient meet any 2 criteria?. kj2 Historical: - Allergies: 11/10 22:35 Chocolate; me1 22:35 pravastatin; me1 - PMHx: 22:35 BILE DUCT CANCER (Hypertension); Hypertension; me1 - PSHx: 22:35 Appendectomy; duct stent; me1 - Immunization history:: Adult Immunizations up to date. - Infectious Disease History:: Denies. - Social history:: Smoking status: Patient denies any tobacco usage or history of. - Family history:: not pertinent. Screenin:00 [facility] ED Fall Risk Assessment (Adult) Intoxicated or Sedated No (0 pts) Impaired kj2 Gait Yes (1 pt) Mobility Assist Device Used Yes (1 pt) Altered Elimination No (0 pt) Score/Fall Risk Level 3 or more points = High Risk Maintained a safe environment, Educated pt \T\ family on fall prevention, incl call for assistance when getting out of bed, Hourly rounding (assess needs \T\ fall precautionary measures) done, Utilized family, sitter, or virtual blood bank worker as indicated. Abuse screen: Denies threats or abuse. Denies injuries from another. Nutritional screening: No deficits noted. Tuberculosis screening: No symptoms or risk factors identified. 11/11 00:59 [facility] ED Fall Risk Assessment (Adult) History of falling in the last 3 months, kj2 including since admission No falls in past 3 months (0 pts) Confusion or Disorientation. Assessment: 11/10 22:50 General: Appears uncomfortable, Behavior is calm, anxious. Pain: Complains of pain in kj2 abdomen Pain currently is 6 out of 10 on a pain scale. Neuro: Level of Consciousness is awake, alert, obeys commands, Oriented to person, place, time. Cardiovascular: Patient's skin is warm and dry. Respiratory: Airway is patent Respiratory effort is even, unlabored. GI: Reports constipation. : Reports incontinence. 11/11 00:00 Reassessment: Patient appears in no apparent distress at this time. Patient and/or kj2 family updated on plan of care and expected duration. Pain level reassessed. Patient is alert, oriented x 3, equal unlabored respirations, skin warm/dry/pink. 00:58 Reassessment: Patient appears in no apparent distress at this time. Patient and/or kj2 family updated on plan of care and expected duration. Pain level reassessed. Patient is alert, oriented x 3, equal unlabored respirations, skin warm/dry/pink. 01:00 GI: abdomen is distended Abdomen is tender to palpation. kj2 01:07 Reassessment: blood pressure low, RN notified MD, no new orders at this time. kj2 02:06 Reassessment: Patient appears in no apparent distress at this time. Patient and/or kj2 family updated on plan of care and expected duration. Pain level reassessed. Patient is alert, oriented x 3, equal unlabored respirations, skin warm/dry/pink. 03:00 Reassessment: Patient appears in no apparent distress at this time. Patient and/or kj2 family updated on plan of care and expected duration. Pain level reassessed. Patient is alert, oriented x 3, equal unlabored respirations, skin warm/dry/pink. 04:00 Reassessment: Patient appears in no apparent distress at this time. Patient and/or kj2 family updated on plan of care and expected duration. Pain level reassessed. Patient is alert, oriented x 3, equal unlabored respirations, skin warm/dry/pink. 05:54 Reassessment: Patient appears in no apparent distress at this time. Patient and/or kj2 family updated on plan of care and expected duration. Pain level reassessed. Patient is alert, oriented x 3, equal unlabored respirations, skin warm/dry/pink. patient requests to stay in personal gown and diaper is clean and dry at this time. Vital Signs: 11/10 22:33 BP 172 / 90; Pulse 124; Resp 20; Temp 99.5; Pulse Ox 100% ; Weight 57.15 kg; Height 5 ut1 ft. 3 in. ; Pain 0/10; 22:50 BP 156 / 77; Pulse 118; Resp 18; Pulse Ox 98% ; kj2 11/11 00:00 BP 121 / 57; Pulse 105; Resp 18; Pulse Ox 94% on R/A; kj2 00:58 BP 108 / 50; Pulse 108; Resp 18; Pulse Ox 94% ; kj2 02:06 BP 104 / 53; Pulse 98; Resp 16; Pulse Ox 95% on R/A; kj2 03:05 BP 98 / 58; Pulse 90; Resp 18; Pulse Ox 99% on R/A; kj2 04:50 Temp 97.9; kj2 04:52 BP 93 / 60; Pulse 96; Resp 16; Pulse Ox 97% ; kj2 06:02 BP 98 / 59; Pulse 92; Resp 18; Temp 98(O); Pulse Ox 100% ; kj2 11/10 22:33 Body Mass Index 22.32 (57.15 kg, 160.02 cm) ut1 11/10 22:33 Pain Scale: Adult ut1 ED Course: 11/10 22:20 Patient arrived in ED. jj6 22:22 Bonifacio Richardson MD is Attending Physician. sp4 22:31 Darcy Cheng, BACILIO is Primary Nurse. kj2 22:35 Triage completed. ut1 22:35 Arm band placed on Patient placed in an exam room. ut1 23:00 Provided Education on: call light. kj2 23:00 No provider procedures requiring assistance completed. kj2 23:56 SARS RAPID Sent. 2 11/11 01:00 Patient has correct armband on for positive identification. Bed in low position. Call kj2 light in reach. Adult w/ patient. 01:53 CT Chest Abdomen Pelvis W/O Contrast In Process Unspecified. EDMS 01:53 CT Head Brain wo Cont In Process Unspecified. EDMS 04:10 Prince Gerardo MD is Hospitalizing Provider. sp4 06:17 Patient admitted, IV remains in place. kj2 Administered Medications: 11/10 23:05 Drug: NS 0.9% IV 500 ml 500 ml IV at 1 bolus once; to be given as a bolus over 30 kj2 minutes Volume: 500 ml; Route: IV; Rate: 1 bolus; Site: left antecubital; 23:05 Drug: Cefepime IVPB 2 grams IVPB at 200 ml/hr once over 30 mins; (mix in NS 100 mL) kj2 Route: IVPB; Rate: 200 ml/hr; Infused Over: 30 mins; Site: left antecubital; 23:35 Follow up: IV Status: Completed infusion; IV Intake: 100ml kj2 23:10 Drug: Ondansetron IVP 4 mg IVP once; over 2 minutes Route: IVP; Site: left antecubital; kj2 11/11 00:41 Follow up: Response: No adverse reaction kj2 11/10 23:15 Drug: Ibuprofen PO 600 mg PO once Route: PO; kj2 11/11 00:41 Follow up: Response: No adverse reaction kj2 11/10 23:54 Drug: Methocarbamol PO 750 mg PO once Route: PO; kj2 11/11 00:30 Follow up: Response: No adverse reaction; Marked relief of symptoms kj2 11/10 23:55 Drug: vancoMYCIN IVPB 1 grams IVPB once over 2 hrs Route: IVPB; Infused Over: 2 hrs; kj2 Site: left antecubital; 23:57 Drug: Albumin IVPB 25 grams 100 ml IVPB once; (Note: Albumin 25% concentration) Volume: kj2 100 ml; Route: IVPB; Site: left antecubital; 11/11 00:30 Drug: NS 0.9% IV 1000 ml IV at 75 ml/hr Per protocol; to be given as a bolus over 60 kj2 minutes Route: IV; Rate: 75 ml/hr; Site: left antecubital; 06:07 Follow up: IV Status: Infusion continued upon admission kj2 Medication: 01:00 VIS not applicable for this client. kj2 Intake: 11/10 23:35 IV: 100ml; Total: 100ml. kj2 Outcome: 11/11 01:00 Discharged to kj2 Condition: stable Instructed on the need for admit, 04:11 Decision to Hospitalize by Provider. sp4 06:14 Patient left the ED. kj2 Signatures: Dispatcher [employer] Monika Valadez jj6 Bonifacio Richardson MD MD sp4 Yvette Santa RN RN me1 Darcy Cheng RN RN kj2
[2024-11-11] MEDS ORDERED: ONDANSETRON 4 MG/2 ML VIAL IV PRN (04:50)
--- NOTE | 2024-11-11 04:54 | P.HP ---
Certification for Inpatient Patient admitted to: Inpatient With expected LOS: >2 Midnights Practitioner: I am a practitioner with admitting privileges, knowledge of patient current condition, hospital course, and medical plan of care. Services: Services provided to patient in accordance with Admission requirements found in Title 42 Section 412.3 of the Code of Federal Regulations Patient History Date of Service: 11/11/24 Reason for admission: Fever History of Present Illness: Patient is a 88-year-old female with known past medical history of biliary cancer complicated by ascites that required periodic paracentesis, last tapped earlier today at [facility] in [place] with 4 L removed. She is here with chief complaint of fever and and generalized weakness. Associated symptoms include chills and rigors. Patient also has a constipation. Patient denies abdominal pain or discomfort. During my evaluation, patient appears very frail. was at bedside and facilitated the HPI portion of this note. Allergies Gjikhpb-RCR-[id number] Reductase Inhibitor Allergy (Verified 08/25/24 16:16) Hives/Rash Home Medications: ursodioL [Ursodiol] 500 mg PO BID 08/25/24 Apixaban [Eliquis] 2.5 mg PO BID 10/08/24 Cholecalciferol (Vitamin D3) [Vitamin D3] 1 tab PO DAILY 10/08/24 Docusate Sodium [Stool Softener] 100 mg PO DAILY 10/08/24 Fexofenadine HCl [Aurora Allergy] 180 mg PO DAILY 10/08/24 Multivit-Min/Iron/Folic/Lutein [Centrum Silver Women Tablet] 1 tab PO DAILY 10/08/24 Furosemide [Lasix*] 20 mg PO BID 30 Days #60 tab 10/12/24 - Past Medical/Surgical History Diabetic: No -: Hypertension -: Anxiety -: Bile duct cancer 06/14 -: Bile duct stent - Social History Alcohol use: No CD- Drugs: No Caffeine use: No Physical Examination - Physical Exam General: Other (Very frail and physically deconditioned) HEENT: Atraumatic, Normocephalic Respiratory: Clear to auscultation bilaterally, Normal air movement Cardiovascular: No murmurs, Other (Bilateral lower extremity edema), Irregular heart rate/rhythm Gastrointestinal: Other (Nontender), Distended, Ascites Neurological: Normal speech - Studies Laboratory Data (last 24 hrs) 11/10/24 11/10/24 11/10/24 22:45 22:45 22:45 WBC 10.20 Hgb 10.6 L Hct 31.8 L Plt Count 306 PT 12.8 H INR 1.15 APTT 31.6 Sodium 130 L Potassium 3.7 BUN 13 Creatinine 0.53 L Glucose 107 H Magnesium 1.7 Total Bilirubin 0.9 AST 89 H ALT 52 Alkaline Phosphatase 306 H 11/10/24 22:24 WBC Hgb Hct Plt Count PT INR APTT Cancelled Sodium Potassium BUN Creatinine Glucose Magnesium Total Bilirubin AST ALT Alkaline Phosphatase Microbiology Data (last 24 hrs): 11/10/24 22:50 Nasopharnyx Influenza Type A Antigen Screen - Final 11/10/24 22:50 Nasopharnyx Influenza Type B Antigen Screen - Final Assessment and Plan - Problems (Diagnosis) (1) Fever Current Visit: Yes Status: Acute (2) Bile duct cancer Current Visit: Yes Status: Acute (3) Ascites Current Visit: Yes Status: Acute (4) Lactic acidosis Current Visit: Yes Status: Acute (5) Generalized weakness Current Visit: Yes Status: Acute (6) Edema Current Visit: No Status: Acute - Plan Assessment Patient is a 88-year-old female with cholangiocarcinoma complicated by ascites that require periodic paracentesis most recent 1 earlier yesterday with 4 L removed. She also has a history of chronic venous stasis. Patient is brought into the ER for evaluation of fever and chills. No obvious source at this time. CT chest, abdomen and pelvis were performed. Other than stool burden, no evidence of consolidation or localized infection. Patient received a dose of cefepime and vancomycin in the ER. Her lactic acid was 2.2. Additional workup included COVID-19 and influenza which returned negative. The patient denies any abdominal pain. Febrile illness Generalized weakness Constipation Cholangiocarcinoma Ascites Chronic venous stasis Plan: Admit inpatient with telemetry Complete infectious workup. Blood culture pending. Will also check for RSV Obtain MRSA screen and procalcitonin dictate antibiotics Treat empirically with cefepime in the meantime Will give a trial of albumin volume repletion Follow formal CAT scan report Lactulose ordered PT/OT ordered Patient would like to be full code. was also at bedside - Advance Directives Does patient have a Living Will: No Does patient have a Durable POA for Healthcare: No
[2024-11-11] MEDS: CEFEPIME 1 GM in NA CHLORIDE 0.9% 100 ML IV SCH (05:15)
[2024-11-11] MEDS: LACTULOSE 20 GM/30 ML UCUP PO ONE ×2 (05:28→23:17)
[2024-11-11] MEDS: ALBUMIN HUMAN 25% 200 ML IV SCH (06:00)
[2024-11-11 07:01] LABS: Magnesium 1.6 mg/dL (1.6-2.4); Phosphorus 2.7 mg/dL (2.5-4.9)
[2024-11-11] MEDS ORDERED: ONDANSETRON 4 MG (ODT) TAB PO PRN ×2 (08:00)
[2024-11-11] MEDS ORDERED: PROCHLORPERAZINE 5 MG TAB PO PRN (08:00)
[2024-11-11] MEDS: APIXABAN 2.5 MG TABLET PO SCH (08:57)
[2024-11-11] MEDS: FUROSEMIDE 20 MG TABLET PO SCH (08:57)
[2024-11-11] MEDS: URSODIOL 500 MG PO SCH (08:57)
[2024-11-11] MEDS: DOCUSATE NA 100 MG CAP PO SCH (08:57)
[2024-11-11] MEDS ORDERED: ENOXAPARIN 40 MG/0.4 ML SQ SCH (09:00)
--- NOTE | 2024-11-11 10:56 | P.PN ---
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 Overnight she remained afebrile but complaining of chills, blood culture no growth to date, normotensive, serum lactate down to 1, normal liver function test except elevated alkaline phosphatase, CT of abdomen and pelvis personally reviewed moderate ascites, hepatomegaly biliary stent in place, serum procalcitonin level mildly elevated 1.16, not toxic appearing, likely acute viral illness, negative influenza and COVID-19, RSV pending. Will continue empiric antibiotics with cefepime and monitor her temperature.
[2024-11-12 00:50] VITALS: O2SAT 97
[2024-11-12 06:15] LABS: Absolute Basophils 0.1 K/uL (0-0.5); Absolute Eosinophils 0.2 K/uL (0-0.5); Absolute Monocytes 0.9 K/uL (0.1-1.3); Absolute Neutrophil 6.1 K/uL (1.8-8.0); Basophils % 0.8 % (0-1.3); Eosinophils % 2.4 % (0-4.4); Hematocrit 28.6 % (36.0-45.0); Lymphocytes % 21.4 % (15.3-44.8); MCH 27.2 pg (27.0-35.0); MCHC 31.4 g/dL (32.0-36.0); MCV 86.7 fL (80-100); MPV 8.6 fL (7.6-11.3); Monocytes % 9.5 % (3.3-12.3); Neutrophils % 65.9 % (41.7-73.7); Platelets 245 thou/uL (152-406); Red Cell Distribution Width 20.4 % (12.1-15.2)
[2024-11-12 06:34] LABS: Anion Gap 10.4 mEq/L (5.0-15.0); Potassium 3.4 mEq/L (3.5-5.1)
[2024-11-12 07:18] VITALS: BMI 22.1
[2024-11-12] MEDS: POTASSIUM CL SA 10 MEQ TAB PO ONE (08:15)
--- NOTE | 2024-11-12 10:34 | RAD REPORT ---
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 COMPARISON: CT Abdomen Pelvis 10/20/[address] Chest Abdomen Pelvis 08/01/2024. PROCEDURE: Axial images through the chest, abdomen and pelvis were generated utilizing 2 mm slice thickness at 2 mm interval reconstruction without the administration of IV contrast. In addition multiplanar reformats in the coronal and sagittal plane were obtained and reviewed. An individualized dose optimization technique, Automated Exposure Control, was utilized for the perfo rmed procedure. FINDINGS: CHEST: Lower neck: Visualized thyroid gland and soft tissues are normal. No adenopathy. Lungs: The lung parenchyma demonstrate tiny tree-in-bud nodularity is within the superior aspect of t he right middle lobe on axial image /123-/123. Very minimal compressive atelectatic changes bilateral posterior CP angles No significant pulmonary nodules and/or masses identified. No focal are as of consolidation. Airways: The trachea mainstem bronchus demonstrate to be unremarkable. Pleural: There are no pleural effusion. No evidence for pneumothorax. Hemidiaphragms are normally pos itioned. Mediastinum and lymph nodes: No significant mediastinal and/or hilar lymphadenopathy. The axillary re gions demonstrate to be clear. Heart: Normal size. No pericardial thickening or effusion. Coronary: Mild coronary calcification. Aorta: There is mild intimal aortic arch calcification Pulmonary arteries: The pulmonary arteries were not evaluated due to lack of IV contrast. Osseous structures and chest wall: There is diffuse bony osteopenia. Questionable small superior comp ression deformity at the T12 and L1. There are degenerative changes right glenohumeral joint with the loose body inferior aspect of the glenoid//humeral head. ABDOMEN AND PELVIS: Liver: The unopacified liver again demonstrated presence of the internal biliary stents in place with left side into the intrahepatic biliary system unchanged in comparison. Gallbladder: The gallbladder demonstrate to be distended with no significant filling defects common c hanged in comparison. Adrenal glands: Grossly the unopacified adrenal glands demonstrate to be unremarkable. Pancreas: Grossly the unopacified pancreas demonstrate to be unremarkable. Spleen: Grossly the unopacified spleen demonstrate to be unremarkable. Kidneys: The kidneys demonstrate normal uptake of contrast media. Grossly the unopacified kidneys d emonstrate to be within normal limits. There is no evidence for nephrolithiasis and/or hydronephrosis. GI: Grossly the unopacified stomach, small bowel and large bowel demonstrate to be within normal limi ts. No evidence for bowel dilatation and/or free air. The appendix was not visualized. The large bowel demonstrate presence of mild fecal residue suggesting the possibility of fecal stasis. : The urinary bladder demonstrate to be unremarkable. Genitalia: The uterus demonstrate to be within normal limits. There are normal adnexal structures. Abdominal aorta: The aorta demonstrated presence of minimal atherosclerotic disease extending into th e aortic bifurcation and iliac arteries. Retroperitoneum: There is no retroperitoneal lymphadenopathy. There is small amount of ascites. Bones: There is diffuse bony osteopenia. There is small superior plate compression deformity at L1. Soft tissues: There is minimal haziness within the skin/subcutaneous tissue suggesting edema/early an asarca. IMPRESSION: Tiny tree-in-bud nodularity within the superior aspect of the right middle lobe suggesting infectious or inflammatory process. Diffuse bony osteopenia with minimal superior compression deformity at the T12 and L1 levels. Small amount of ascites. Internal biliary stents in place with left side into the intrahepatic biliary system. Mild fecal residue within the large bowel suggesting the possibility of fecal stasis. Minimal haziness within the skin/subcutaneous tissue suggesting edema/early anasarca. No significant interval change. Electronically signed by: Zeus Serrano MD 11/11/2024 03:22 AM [facility] Due to temporary technical issues with the PACS/[employer] reporting system, reports are being yumiko d by the in-house radiologist without review as a courtesy to ensure prompt reporting the interpreting radiologist is fully responsible for the content of the report. Transcribed Date/Time: 11/12/2024 10:34 AM
--- NOTE | 2024-11-12 10:37 | RAD REPORT ---
EXAM DESCRIPTION: CT HEAD WITHOUT IV CONTRAST 11/11/2024 2:58 AM STATION REPAIRER CLINICAL HISTORY: 88 years, Female, Confused. COMPARISON: CT Head 08/25/2024. FINDINGS: Multiple transaxial tomograms of the brain were obtained from the base of the skull to the vertex wit hout contrast. An individualized dose optimization technique, Automated Exposure Control, was utilized for the perfo rmed procedure. Brain: The brain demonstrate prominence of the sulci and gyri corresponding to mild brain atrophy. Th ere No acute intracranial hemorrhage. No midline shift and/or mass effect. Ventricles: Lateral ventricles and cisterns displace normal appearance. Vasculature: No visualized abnormalities in the arteries or dural venous sinuses. Scalp/skull: The calvarium demonstrate to be intact with no evidence for acute bony injuries. Sinuses: The visualized paranasal sinuses and mastoid air cells demonstrate to be clear. Orbits: No significant abnormalities in the visualized orbital structures. IMPRESSION: No acute intracranial hemorrhage. Mild brain atrophy. Electronically signed by: Zeus Serrano MD 11/11/2024 03:14 AM STATION REPAIRER Due to temporary technical issues with the PACS/[employer] reporting system, reports are being signed by the in-house radiologist without review as a courtesy to ensure prompt reporting the interpreting radiologist is fully responsible for the content of the report. Transcribed Date/Time: 11/12/2024 10:36 AM
--- NOTE | 2024-11-12 11:18 | P.PN ---
Subjective Date of Service: 11/12/24 Chief Complaint: Fever Subjective: No new changes No overnight event, remained afebrile, he has no complaint, no rigor or chills, tolerating oral diet well, no urinary or GI symptoms. The is asking for refill and apixaban, patient had a A-fib during dehydration, unable to reach her cardiology and have apixaban refill. Review of Systems Other: Consitutional; fever(-), chills (-), rigor(-), night sweat(-), unintentional weight loss(-), malaise (+) HEENT; diplopia (-), rhinorrhea (-), epistaxis (-), otorrhea (-), otalgia (-) Respiratory; shortness of breath (-), wheezing (-), cough (-), sputum (-), pleu ritic chest pain (-) Cardiovascular; chest pain (-), peripheral edema (-), paroxysmal nocturnal dyspnea (-), orthopnea (-) Gastrointestinal; nausea (-), vomiting (-), abdominal pain (-), diarrhea (-), constipation (-), melena (-), hematochezia (-) Genitourinary; urinary frequency (-), dysuria (-), urgency (-), flank pain (-), gross hematuria (-), incontinence (-) Skin; rash (-), pruritus (-) FIELD PRODUCER; headache (-), paresthesia (-), numbness (-), paralysis (-) Physical Examination - Vital Signs Temperature: 97.9 F Blood Pressure: 107/62 Pulse: 93 Respirations: 18 Pulse Ox (%): 98 Assessment And Plan - Plan This is 88 years old female patient with past medical history notable for 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 #1 likely acute viral illness Remain afebrile for 48 hours, no leukocytosis, preliminary blood culture shows no growth to date, urine culture pending but no urinary symptoms, I will discontinue cefepime and monitor her temperature for the next 24-hour, tested negative for COVID-19, RSV, influenza, blood procalcitonin elevated 1.1 #2 history of intrahepatic cholangiocarcinoma status post biliary stent requiring therapeutic paracentesis Stable, normal liver function test except mildly elevated alkaline phosphatase, continue oral furosemide, no therapeutic paracentesis indicated at the moment #3 history of atrial fibrillation on apixaban Per patient and heart rate well-controlled without any medication DVT prophylaxis; apixaban Plan to discharge home if patient remain afebrile for the next 24 hours. .
--- NOTE | 2024-11-12 13:06 | EKG ---
Test Date: 2024-11-10 Test Time: 23:01:45 Design Engineering Technician: AGUSTIN MEASUREMENT RESULTS: Intervals: Rate: 120 IL: 158 QRSD: 68 QT: 302 QTc: 426 [place]: P: IL: 158 QRS: 49 T: 72 INTERPRETIVE STATEMENTS: Sinus tachycardia with premature supraventricular complexes Septal infarct, age undetermined ST & T wave abnormality, consider inferior ischemia Abnormal ECG Compared to ECG 10/20/2024 11:52:02 Atrial premature complex(es) now present ST (T wave) deviation now present Possible ischemia now present Sinus rhythm no longer present Ventricular premature complex(es) no longer present Myocardial infarct finding still present Electronically Signed On 11-12-24 13:04:18 HOME BASED ASSISTANT by Hector Davila
[2024-11-13 06:44] LABS: Anion Gap 7.6 mEq/L (5.0-15.0); Potassium 3.6 mEq/L (3.5-5.1)
[2024-11-13] MEDS: POTASSIUM CL SA 10 MEQ TAB PO ONE (08:44)
--- NOTE | 2024-11-13 11:10 | EKG ---
Test Date: 2024-11-11 Test Time: 04:16:07 Architectural Representative: AGUSTIN MEASUREMENT RESULTS: Intervals: Rate: 99 KS: 174 QRSD: 72 QT: 376 QTc: 482 [place]: P: 90 KS: 174 QRS: 43 T: 64 INTERPRETIVE STATEMENTS: Normal sinus rhythm Septal infarct, age undetermined Abnormal ECG Compared to ECG 11/10/2024 23:01:45 Sinus tachycardia no longer present Atrial premature complex(es) no longer present ST (T wave) deviation no longer present Possible ischemia no longer present Myocardial infarct finding still present Electronically Signed On 11-13-24 11:07:31 COOK FROZEN DESSERT by Hector Davila
[2024-11-13 13:22] VITALS: BP 135/75; TEMP 98.7
--- NOTE | 2024-11-21 03:33 | P.DS ---
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 She is here with chief complaint of fever and and generalized weakness. Associated symptoms include chills and rigors. Patient also has a constipation. Patient denies abdominal pain or discomfort. During my evaluation, patient appears very frail. was at bedside and facilitated the HPI portion of this note. Hospital Course: Patient has done well during hospital stay. Patient is clinically doing much better. Labs are stable. At this time, patient is stable for discharge with outpatient follow-up with PCP and specialist. Continue with antibiotic therapy. Patient is told to call me if he has any questions over the next few days and we can give patient taking care of at that time. Vital Signs/Physical Exam: Temp Pulse Resp BP Pulse Ox 98.7 F 87 16 135/75 98 11/13/24 12:00 11/13/24 12:00 11/13/24 12:00 11/13/24 12:00 11/13/24 12:00 General: Alert, In no apparent distress, Oriented x3 Laboratory Data at Discharge: WBC 9.30 thou/uL (4.3-10.9) 11/12/24 05:02 Hgb 9.0 g/dL (12.0-15.0) L 11/12/24 05:02 Hct 28.6 % (36.0-45.0) L 11/12/24 05:02 Plt Count 245 thou/uL (152-406) 11/12/24 05:02 PT 12.8 SECONDS (9.4-12.5) H 11/10/24 22:45 INR 1.15 11/10/24 22:45 APTT 31.6 SECONDS (24.3-36.9) 11/10/24 22:45 Sodium 134 mEq/L (136-145) L 11/13/24 05:31 Potassium 3.6 mEq/L (3.5-5.1) 11/13/24 05:31 BUN 16 mg/dL (7-18) 11/13/24 05:31 Creatinine 0.43 mg/dL (0.55-1.02) L 11/13/24 05:31 Glucose 91 mg/dL (74-106) 11/13/24 05:31 Phosphorus 2.7 mg/dL (2.5-4.9) 11/11/24 06:30 Magnesium 1.6 mg/dL (1.6-2.4) 11/11/24 06:30 Total Bilirubin 0.9 mg/dL (0.2-1.0) 11/10/24 22:45 AST 89 U/L (15-37) H 11/10/24 22:45 ALT 52 U/L (13-56) 11/10/24 22:45 Alkaline Phosphatase 306 U/L (45-117) H 11/10/24 22:45 Home Medications: ursodioL [Ursodiol] 500 mg PO BID 08/25/24 Cholecalciferol (Vitamin D3) [Vitamin D3] 1 tab PO DAILY 10/08/24 Docusate Sodium [Stool Softener] 100 mg PO DAILY 10/08/24 Fexofenadine HCl [Aurora Allergy] 180 mg PO DAILY 10/08/24 Multivit-Min/Iron/Folic/Lutein [Centrum Silver Women Tablet] 1 tab PO DAILY 10/08/24 Furosemide [Lasix*] 20 mg PO BID 30 Days #60 tab 10/12/24 Ondansetron [Zofran (Odt)*] 8 mg PO PRN 11/11/24 Prochlorperazine Maleate 5 mg PO PRN 11/11/24 Apixaban [Eliquis] 2.5 mg PO BID #60 tab 11/13/24 Cefdinir [Cefdinir*] 300 mg PO BID #14 cap 11/13/24 New Medications: Cefdinir [Cefdinir*] 300 mg PO BID #14 cap Apixaban [Eliquis] 2.5 mg PO BID #60 tab Physician Discharge Instructions: -DC IV and DC home -Follow-up with PCP in 1 to 2 weeks -Follow-up with GI specialist in 2 to 4 weeks -Follow-up with heavy duty mechanic in 2 to 4 weeks -Please call Dr. Tinoco at [phone] if any questions regarding hospital stay -Please call nursing station at [phone] if any nursing or medication questions -Return to the emergency room if symptoms worsen Diet: Regular Activity: Fall precautions Followup: Hillary Kilgore MD [Primary Care Provider] - 1-2 Weeks Time spent managing pt's care (in minutes): 35
== END 2024-11-13 12:49 | disposition home or self-care (01) | DRG 866 ==
LOC: ER 22:17 → 4TH 11-11 04:50
PROVIDERS: ADMIT Internal Medicine; ATTEND Hospitalist
DX: B34.9 Viral infection, unspecified (principal); C24.0 Malignant neoplasm of extrahepatic bile duct; E87.1 Hypo-osmolality and hyponatremia; R18.8 Other ascites; E87.21 Acute metabolic acidosis; I87.8 Other specified disorders of veins; I10 Essential (primary) hypertension; I48.91 Unspecified atrial fibrillation; K59.00 Constipation, unspecified; Z88.8 Allergy status to other drugs, medicaments and biological substances; Z11.52 Encounter for screening for COVID-19; Z79.01 Long term (current) use of anticoagulants; Z90.49 Acquired absence of other specified parts of digestive tract; Z91.018 Allergy to other foods; Z79.899 Other long term (current) drug therapy
CPT/HCPCS: 36415; 70450; 71250; 74176; 80048; 80076; 81001; 82140; 82947; 83605; 83735; 83880; 84100; 84132; 84145; 84484; 85025; 85610; 85730; 86140; 87040; 87077; 87086; 87088; 87186; 87804; 87807; 87811; 93005; 96361; 96365; 96375; 97116; 97161; 97530; 99284; J0692; J2405; J7030; J7040; J7050; P9047; Q0164